=== PATIENT | female | born 1935 | race Caucasian/White ===

== ENCOUNTER 2020-07-23 10:41 | Inpatient (IN) | payer MEDICARE, SELFPAY ==
[2020-07-23] VITALS (33 sets, daily range): BP systolic 80–140; BP diastolic 43–66; PULSE 52–65; RESP 16–29; TEMP 36.4–36.9; O2SAT 91–100
--- NOTE | ~2020-07-23 | CT_ITS ---
EXAMINATION: CT abdomen pelvis w con DATE: 07/23/2020 13:26 INDICATION: Epigastric abdominal pain. Nausea and vomiting. TECHNIQUE: Computed tomography (CT) of the abdomen and pelvis was performed with 100 mL Omnipaque 350 intravenous contrast. Automated exposure control and iterative reconstruction technique were employe d. The dose-length product was 546.05 mGy-cm. COMPARISON: None. FINDINGS: The visualized portions of the lung bases demonstrate mild atelectasis and mild chronic jeramie g disease. There is mild bronchiectasis in the lower lobes and lingula. There are trace pleural effus ions. Cardiomegaly is noted. No pericardial effusion. Calcifications in the liver and spleen are cons istent with old granulomatous disease. The gallbladder, pancreas, adrenal glands, and kidneys are nor mal. There is diverticulosis of the colon without evidence of diverticulitis. There are no dilated lo ops of bowel. There are changes of appendectomy. There is an umbilical hernia containing fat. There i s a gastrostomy tube in expected position. There are no pathologically enlarged lymph nodes. There is no free intraperitoneal fluid. There is a chronic burst fracture of L5. There is severe lumbar and t horacic spondylosis. IMPRESSION: 1. Umbilical hernia containing fat. Reviewed, dictated and finalized at location A.
--- NOTE | ~2020-07-23 | XR_ITS ---
EXAMINATION: XR chest 2V DATE: 07/23/2020 11:44 INDICATION: Aspiration. Cough. TECHNIQUE: Frontal and lateral views of the chest were obtained. COMPARISON: None. FINDINGS: There is mild atelectasis in left lower lung zone. No pleural effusion or pneumothorax. The heart size is normal. IMPRESSION: 1. Mild atelectasis in left lower lung zone. Reviewed, dictated and finalized at location A.
--- NOTE | 2020-07-23 10:50 | ECG_ITS ---
Measurements Intervals [place] Rate: 53 P: 52 NH: 157 QRS: -7 QRSD: 85 T: 40 QT: 430 QTc: 406 Interpretive Statements SINUS BRADYCARDIA BASELINE ARTIFACT- I, AVL, V5 BORDERLINE ECG Electronically Signed On 07-24-2020 11:41:01 CDT by Pete Cardona D.O.
[2020-07-23 11:05] LABS: Basophils Absolute Auto 0.1 K/mm3 (0.0-0.1); Basophils Percent Auto 0.2 % (0.2-1.2); Eosinophils Absolute Auto 0.3 K/mm3 (0-0.3); Eosinophils Percent Auto 1.3 % (0-4.4); Hemoglobin 11.2 g/dL (12.0-15.0); Immature Granulocyte Absolute 0.14 K/mm3 (0.00-0.031); Immature Granulocyte Percent A 0.7 % (0-0.5); Lymphocytes Absolute Auto 0.85 K/mm3 (0.9-3.2); Lymphocytes Percent Auto 4.1 % (18.3-44.2); Mean Corpuscular HGB Conc 32.9 g/dl (32-36); Mean Corpuscular Hemoglobin 30.9 pg (26-34); Mean Corpuscular Volume 93.9 fl (80-100); Mean Platelet Volume 9.2 fl (7.4-10.4); Neutrophils Absolute Auto 18.5 K/mm3 (1.3-6.7); Neutrophils Percent Auto 88.7 % (45.5-73.1); Platelet Count Result 524 k/mm3 (150-375); Red Blood Count 3.62 M/mm3 (4.2-5.4); Red Cell Distribution Width 13.8 % (11.5-14.5); White Blood Count 20.8 K/mm3 (4.5-10.0)
[2020-07-23 11:13] LABS: Ovalocytes 1+ (NORMAL); Platelet Estimate Adequate (Adequate)
--- NOTE | 2020-07-23 11:40 | PC.NURSE ---
PT TO RADIOLOGY AT THIS TIME, WILL OBTAIN URINE UPON HER RETURN.
[2020-07-23 12:16] LABS: Add Urine Microscopic? YES; Amorphous Sediment Urine Few; Appearance Urine Clear (Clear); Bacteria Urine Trace /hpf; Bilirubin Urine Negative (Negative); Blood Urine Negative (Negative); Color Urine Yellow (Yellow); Glucose Urine UA Negative (Negative); Ketones Urine Negative (Negative); Leukocyte Esterase Ur Negative LEU/UL (Negative); Mucus Urine Few /lpf; Nitrate Urine Negative (Negative); Protein Urine Negative (Negative); RBC Urine 0-2 /hpf (0-2); Specific Grav Ur 1.015 (1.001-1.035); Squamous Epithelial Cell Urine Rare /hpf (Few); WBC Urine 0-3 /hpf
[2020-07-23 12:23] LABS: Alanine Aminotransferase 20 U/L (4-35); Albumin Level 3.2 g/dL (3.5-5.1); Alkaline Phosphatase 63 U/L (38-126); Anion Gap 5 mmol/L (8-16); Aspartate Amino Transferase 27 U/L (14-36); Bilirubin,Total 0.5 mg/dL (0.2-1.3); Blood Urea Nitrogen 23 mg/dL (7-17); Calcium 9.1 mg/dL (8.4-10.2); Carbon Dioxide 33 mmol/L (22-30); Chloride 93 mmol/L (98-107); Estimated CRCL calculation 54 ml/min; Estimated Glomerular Filt Rate > 60; Glucose 142 mg/dL (65-105); Lipase 175 U/L (23-300); Potassium 4.4 mmol/L (3.4-5.0); Sodium 131 mmol/L (137-145)
--- NOTE | 2020-07-23 14:03 | ED.GENADULT ---
HPI - General Adult General Chief complaint: Nausea/Vomiting/Diarrhea Stated complaint: vomiting Time Seen by Provider: 07/23/20 10:59 History of Present Illness HPI narrative: Patient is an 85-year-old female with history of dementia who presents ER with concerns for nausea/vomiting as well as possible aspiration. Patient has a G-tube and has been vomiting yellowish fluid. They report she has new oxygen requirement which is abnormal for her. History otherwise limited. At baseline patient is alert and oriented x1. Related Data Home Medications Medication Instructions Recorded Confirmed acetaminophen 325 mg FEEDING TUBE Q4-5H PRN 07/23/20 07/23/20 albuterol sulfate 2 puff INHALATION Q4-5H PRN 07/23/20 07/23/20 alprazolam 0.25 mg PO HS PRN 07/23/20 07/23/20 amlodipine 10 mg FEEDING TUBE DAILY 07/23/20 07/23/20 apixaban 5 mg FEEDING TUBE BID 07/23/20 07/23/20 atorvastatin 10 mg FEEDING TUBE DAILY 07/23/20 07/23/20 bisacodyl 10 mg IN DAILY PRN 07/23/20 07/23/20 carvedilol 25 mg FEEDING TUBE BID 07/23/20 07/23/20 cholecalciferol (vitamin D3) 10 mcg FEEDING TUBE DAILY 07/23/20 07/23/20 [Vitamin D3] lamotrigine 200 mg FEEDING TUBE BID 07/23/20 07/23/20 lansoprazole 30 mg PO DAILY 07/23/20 07/23/20 mirtazapine 15 mg PO HS 07/23/20 07/23/20 polyethylene glycol 1 ea MISCELLANEOUS PRN 07/23/20 07/23/20 Allergies Allergy/AdvReac Type Severity Reaction Status Date / Time No Known Allergies Allergy Verified 07/23/20 11:11 Review of Systems Review of Systems: ROS unobtainable: Yes unobtainable due to medical condition PMFSH Past Medical History Medical History (Updated 07/23/20 @ 21:42 by Neil Hahn MD) Anxiety Brain aneurysm CVA (cerebral vascular accident) Dementia Depression Hyperlipidemia Hypertension Subarachnoid bleed Surgical History Surgical History Gastrostomy tube in place Family History Family History Father Diabetes mellitus Social History Social History (Updated 07/23/20 @ 21:11 by Nyla Sarmiento NP) Social History: Resides at [facility]. The patient is listed as a DNR. Her son is listed as a durable power prototype special build for healthcare. The patient is being listed as . She is retired. Only her son day but is listed is listed as contact. Years smoked: 60 Smoking status: Former smoker Tobacco type: cigarettes Alcohol intake: never Substance use: never Living arrangements: residential Gender identity (if verbalized by the patient): Female Spiritual care concerns: No Exam Narrative: Exam Narrative: GENERAL: Chronically ill-appearing, well-nourished, and in no acute distress. HEAD: Normocephalic, atraumatic. NECK: Supple. CHEST: Basilar Rales that are faint. No respiratory distress. HEART: Regular rate and rhythm. Normal peripheral pulses. ABDOMEN: Soft, nontender, nondistended. EXTREMITIES: Normal range of motion. No edema. SKIN: Warm, dry, no rash. NEURO: Patient is very fatigued and awakens with minor noxious stimuli. She is not alert or oriented. PSYCH: Normal mood and affect. Course Course Emergency Course: Accepted to hospitalist service. Patient son informed of results. He reports that patient requires Reglan to help with gastric emptying and is concerned that she will not get it. Treatment was on the medication list that was sent by the residential. Vital Signs Vital signs: Vital Signs Pulse Rate 59 L 07/23/20 10:46 Respiratory Rate 16 07/23/20 10:46 Pulse Oximetry 100 07/23/20 10:46 Temperature 97.5 F L 07/23/20 16:15 Pulse Rate 61 07/23/20 16:15 Respiratory Rate 18 07/23/20 16:15 Blood Pressure 140/43 L 07/23/20 16:15 Pulse Oximetry 100 07/23/20 16:15 Medical Decision Making Vital Signs Vital Signs: Vital Signs Pulse Rate 59 L 07/23/20 10:46 Respiratory Rate 16 07/23/20
--- NOTE | 2020-07-23 16:05 | ADMGEN ---
This patient, Judy Geronimo, was admitted to [facility] Surg Room 332-01. Patient/family oriented to hospital policies and general routines including ID bracelet, bed and alarms, visiting hours, pain management, procedures, bathroom and other care routines, personal items, smoking policy, room service/diet, and visiting hours. Information on how to activate the Rapid Response Team has been discussed. Patient/Family are encouraged to report perceived risks to care and to ask questions if they do not understand what they are told or what they should do.
[2020-07-23 17:57] LABS: Lactic Acid Reflex 0.9 mmol/L (0.7-2.1)
[2020-07-23 20:51] LABS: SARS-CoV-2 RNA PCR Negative
--- NOTE | 2020-07-23 20:52 | PM.IMHP ---
H&P: HPI History of Present Illness Date/Time: 07/23/20 20:52 Chief complaint: aspiration pneumonia,hypoxia,ams Narrative: Judy Geronimo is a 85 year old female Who comes [facility]. Care center at [facility]. She has had a past history of having a hemorrhagic subarachnoid bleed in the past. And a brain aneurysm. She is currently on tube feedings. And she has a history of dementia. She came to the emergency room today for concerns of nausea vomiting. With possible aspiration. She does have a G-tube and has been vomiting yellowish fluid. Patient is now requiring oxygen and she is not on any home oxygen. She is only orientated x1. However when I went to interview she was not answering any questions. It looks like the son is a durable power immigration attorney for healthcare. Patient is typically NPO at the alf. She is listed as a DNR at the alf. Patient's CT of the abdomen was read as umbilical hernia containing fat. Chest x-ray was read as mild atelectasis in the left lower lung zone. Patient was started on Zosyn For possible aspiration. Patient was admitted and patient on a medical floor. She was checked for covid 19. It is placed on isolation. Date of service is 07/23/2020 Review of Systems Review of Systems: All systems reviewed & are unremarkable except as noted in HPI and below Constitutional: Constitutional: Reports as per HPI and Reports no additional constitutional complaints Eyes: Eyes: Reports as per HPI and Reports no additional eye complaints ENT: Reports system reviewed and no additional complaints, except as documented and Reports Normal hearing present Cardiovascular: Cardiovascular: Reports no additional cardiovascular complaints Respiratory: Respiratory: Reports no additional respiratory complaints and Reports no additional respiratory complaints Gastrointestinal: Gastrointestinal: Reports as per HPI and Reports no additional gastrointestinal complaints Musculoskeletal: Musculoskeletal: Reports no additional musculoskeletal complaints Integumentary/Breasts: Skin/Breast: Reports system reviewed and no additional complaints, except as docu and Reports as per HPI Neurologic: Reports system reviewed and no additional complaints, except as documented, Reports as per HPI and Reports Normal hearing present Psychiatric: Psychiatric: Reports no additional psychiatric complaints and Reports as per HPI Endocrine: Endocrine: Reports no additional endocrine complaints Hematologic/Lymphatic: Hematologic/Lymphatic: Reports no additional hematologic/lymphatic complaints Allergic/Immunologic: Allergic/Immunologic: Reports no additional allergic/immunologic complaints [facility] Past Medical History Medical History (Updated 07/23/20 @ 21:09 by Nyla Sarmiento NP) Anxiety Brain aneurysm CVA (cerebral vascular accident) Dementia Depression Hyperlipidemia Hypertension Subarachnoid bleed Surgical History Surgical History Gastrostomy tube in place Family History Family History Father Diabetes mellitus Social History Social History (Updated 07/23/20 @ 21:11 by Nyla Sarmiento NP) Social History: Resides at [facility]. The patient is listed as a DNR. Her son is listed as a durable power immigration attorney for healthcare. The patient is being listed as . She is retired. Only her son day but is listed is listed as contact. Years smoked: 60 Smoking status: Former smoker Tobacco type: cigarettes Alcohol intake: never Substance use: never Living arrangements: alf Gender identity (if verbalized by the patient): Female Spiritual care concerns: No Meds Home Medications and Allergies Home Medications Medication Instructions Recorded Confirmed Type acetaminophen 325 mg FEEDING TUBE Q4-5H PRN 07/23/20 07/23/20 Histor
[2020-07-23] MEDS: SODIUM CHLORIDE 0.9% IV 1,000 ML 100 ML IV CONT (22:29)
[2020-07-23] MEDS: PANTOPRAZOLE SODIUM IV 40 MG VIAL IV PUSH (22:29)
[2020-07-24] VITALS (9 sets, daily range): BP systolic 123–134; BP diastolic 43–60; PULSE 59–85; RESP 16–20; TEMP 36.3–36.8; O2SAT 93–98; BMI 25.0
[2020-07-24 08:20] LABS: Hematocrit 26.7 % (37.0-47.0); Hemoglobin 8.6 g/dL (12.0-15.0); Mean Corpuscular HGB Conc 32.2 g/dl (32-36); Mean Corpuscular Volume 96.4 fl (80-100); Platelet Count Result 409 k/mm3 (150-375); Red Blood Count 2.77 M/mm3 (4.2-5.4); Red Cell Distribution Width 13.7 % (11.5-14.5)
[2020-07-24] MEDS: SODIUM CHLORIDE 0.9% IV 1,000 ML 100 ML IV CONT (08:28)
[2020-07-24] MEDS: DEXAMETHASONE SOD PHOS INJ 4 MG/ML VIAL 6 MG IV PUSH (08:30)
[2020-07-24] MEDS: ENOXAPARIN 40 MG/0.4 ML SYRINGE SUB-Q (08:32)
[2020-07-24] MEDS: PANTOPRAZOLE SODIUM IV 40 MG VIAL IV PUSH ×2 (08:32→20:09)
[2020-07-24 08:36] LABS: Alanine Aminotransferase 18 U/L (4-35); Albumin Level 2.8 g/dL (3.5-5.1); Alkaline Phosphatase 55 U/L (38-126); Anion Gap 4 mmol/L (8-16); Aspartate Amino Transferase 32 U/L (14-36); Bilirubin,Total 0.5 mg/dL (0.2-1.3); Blood Urea Nitrogen 17 mg/dL (7-17); Calcium 8.4 mg/dL (8.4-10.2); Carbon Dioxide 31 mmol/L (22-30); Chloride 99 mmol/L (98-107); Estimated CRCL calculation 54 ml/min; Estimated Glomerular Filt Rate > 60; Glucose 100 mg/dL (65-105); Potassium 3.9 mmol/L (3.4-5.0); Sodium 134 mmol/L (137-145)
--- NOTE | 2020-07-24 14:17 | PM.IMPN ---
Progress Note: A&P Assessment and Plan (1) Aspiration pneumonia: Code(s): J69.0 - Pneumonitis due to inhalation of food and vomit Status: Acute Assessment and Plan: Concern for aspiration noted by [facility] staff. Patient had vomited and then became hypoxic, requiring oxygen. She has not had any episodes of hypoxia documented here. CXR showed mild atelectasis of lower lung zones. She has been afebrile. At presentation, WBC was elevated at 20.8 and has improved to 11.0. Lungs are CTA. She is maintaining adequate oxygen saturations on 2L O2. She is on tube feedings due to neurogenic dysphagia but she was still taking some sips and bites by mouth at [facility]. Continue IV Zosyn (started 07/23) Blood cultures are pending. Aspiration precautions in place. IV fluids discontinued. Resume tube feedings. NPO. Supplemental O2 as needed to achieve O2 sat >92% (2) Nausea and vomiting: Code(s): R11.2 - Nausea with vomiting, unspecified Status: Acute Assessment and Plan: Patient had episode of N/V at [facility]. CT a/p with no acute process. She has not had any episodes of N/V today. Antiemetics as needed Resume PPI Resume tube feedings IV fluids discontinued. Monitor closely for symptoms (3) Hypertension: Code(s): I10 - Essential (primary) hypertension Status: Chronic Assessment and Plan: Blood pressure is stable at 128/60. Will resume home dose amlodipine (4) Hyperlipidemia: Code(s): E78.5 - Hyperlipidemia, unspecified Status: Chronic Assessment and Plan: Continue atorvastatin per G-tube (5) Subarachnoid hemorrhage: Code(s): I60.9 - Nontraumatic subarachnoid hemorrhage, unspecified Status: Acute Assessment and Plan: Patient had SAH on 06/19/2020. She was hospitalized at [facility] from 06/19/20-07/17/2020. Records were reviewed. Closely monitor (6) DVT (deep venous thrombosis): Code(s): I82.409 - Acute embolism and thrombosis of unspecified deep veins of unspecified lower extremity Status: Acute Assessment and Plan: Patient has history of DVT and is currently being managed on eliquis. Despite her recent SAH, this medication was continued upon discharge from [facility]. Duration of therapy is not indicated in records, however son states that it was to be continued for 2 weeks which would make stop date 07/31/2020. Continue eliquis per feeding tube (7) Anxiety: Code(s): F41.9 - Anxiety disorder, unspecified Status: Chronic Assessment and Plan: Mood is stable at this time. Continue prn ativan per feeding tube. (8) COVID-19 ruled out by laboratory testing: Code(s): Z03.818 - Encounter for observation for suspected exposure to other biological agents ruled out Status: Acute Assessment and Plan: Tested negative for COVID-19 on 07/23/2020. IV Dexamethasone discontinued 07/24 (patient received 1 dose). Isolation precautions discontinued. Subjective Date/time seen: 07/24/20 14:17 Interval history: Date of service: 07/24/2020 Judy Geronimo is an 85 year old female with a history of CVA, dementia, HLD, HTN, anxiety, and recent subarachnoid hemorrhage who is seen in follow up for probable aspiration pneumonia. She is resting comfortably and awakens to her name. She is pleasantly confused and is not able to contribute to her history. She states I don't feel well but cannot elaborate on symptoms. No further information is obtainable. Review of Systems Review of Systems: ROS unobtainable: Yes unobtainable due to mental status Exam Narrative: Exam Narrative: Ms. Geronimo is a thin, chronically ill appearing 85-year-old female who is lying supine in bed. She appears comfortable and is in NARD. Neuro: asleep, awakens to verbal stimuli, oriented x2 (able to state name and year), speech garbled, able to follow some commands, bulb assembler strength 4/5 on righ
[2020-07-24] MEDS: APIXABAN 5 MG TABLET FEED TUBE (18:30)
[2020-07-24] MEDS: lamoTRIgine 100 MG TABLET 200 MG FEED TUBE (20:09)
[2020-07-24] MEDS: carvediloL 25 MG TABLET FEED TUBE (20:09)
[2020-07-25 05:59] VITALS: BP 149/56; PULSE 61; RESP 18; TEMP 36.2; O2SAT 94
[2020-07-25 06:01] LABS: Hematocrit 28.7 % (37.0-47.0); Hemoglobin 9.3 g/dL (12.0-15.0); Mean Corpuscular HGB Conc 32.4 g/dl (32-36); Mean Corpuscular Volume 95.7 fl (80-100); Mean Platelet Volume 9.2 fl (7.4-10.4); Platelet Count Result 456 k/mm3 (150-375); Red Cell Distribution Width 13.4 % (11.5-14.5); White Blood Count 10.1 K/mm3 (4.5-10.0)
[2020-07-25 06:14] LABS: Anion Gap 6 mmol/L (8-16); Blood Urea Nitrogen 19 mg/dL (7-17); Carbon Dioxide 26 mmol/L (22-30); Chloride 103 mmol/L (98-107); Estimated CRCL calculation 64 ml/min; Estimated Glomerular Filt Rate > 60; Glucose 115 mg/dL (65-105); Potassium 3.7 mmol/L (3.4-5.0); Sodium 135 mmol/L (137-145)
[2020-07-25] MEDS: amLODIPine BESYLATE 5 MG TABLET 10 MG FEED TUBE (09:02)
[2020-07-25] MEDS: PANTOPRAZOLE SODIUM IV 40 MG VIAL IV PUSH ×2 (09:02→20:26)
[2020-07-25] MEDS: APIXABAN 5 MG TABLET FEED TUBE ×2 (09:02→18:36)
[2020-07-25] MEDS: ATORVASTATIN 10 MG TABLET FEED TUBE (09:03)
[2020-07-25] MEDS: carvediloL 25 MG TABLET FEED TUBE ×2 (09:03→20:25)
[2020-07-25] MEDS: lamoTRIgine 100 MG TABLET 200 MG FEED TUBE ×2 (09:03→20:26)
--- NOTE | 2020-07-25 11:54 | PM.IMPN ---
Progress Note: A&P Assessment and Plan (1) Aspiration pneumonia: Code(s): J69.0 - Pneumonitis due to inhalation of food and vomit Status: Acute Assessment and Plan: Concern for aspiration noted by [facility] staff. Patient had vomited and then became hypoxic, requiring oxygen. She has not had any episodes of hypoxia documented here. CXR showed mild atelectasis of lower lung zones. She has been afebrile. At presentation, WBC was elevated at 20.8 and has improved to 10.1. Lungs are CTA. She has been weaned to room air and is maintaining adequate oxygen saturations. She is on tube feedings due to neurogenic dysphagia but she was still taking some sips and bites by mouth at [place]. Continue IV Zosyn (started 07/23) Blood cultures are pending. Aspiration precautions in place. IV fluids discontinued 07/24. Tube feedings resumed 07/24. NPO. Supplemental O2 as needed to achieve O2 sat >92% Hopeful discharge tomorrow if continued improvement. (2) Nausea and vomiting: Code(s): R11.2 - Nausea with vomiting, unspecified Status: Acute Assessment and Plan: Patient had episode of N/V at [facility]. CT a/p with no acute process. She has not had any episodes of N/V today. Antiemetics as needed PPI resumed Resume tube feedings IV fluids discontinued. Monitor closely for symptoms (3) Hypertension: Code(s): I10 - Essential (primary) hypertension Status: Chronic Assessment and Plan: Blood pressure is stable at 149/56. Continue amlodipine (4) Hyperlipidemia: Code(s): E78.5 - Hyperlipidemia, unspecified Status: Chronic Assessment and Plan: Continue atorvastatin per G-tube (5) Subarachnoid hemorrhage: Code(s): I60.9 - Nontraumatic subarachnoid hemorrhage, unspecified Status: Acute Assessment and Plan: Patient had SAH on 06/19/2020. She was hospitalized at [facility] from 06/19/20-07/17/2020. Records were reviewed. Closely monitor (6) DVT (deep venous thrombosis): Code(s): I82.409 - Acute embolism and thrombosis of unspecified deep veins of unspecified lower extremity Status: Acute Assessment and Plan: Patient has history of DVT and is currently being managed on eliquis. Despite her recent SAH, this medication was continued upon discharge from [facility]. Duration of therapy is not indicated in records, however son states that it was to be continued for 2 weeks which would make stop date 07/31/2020. Continue eliquis per feeding tube (7) Anxiety: Code(s): F41.9 - Anxiety disorder, unspecified Status: Chronic Assessment and Plan: Mood is stable at this time. Continue prn ativan per feeding tube. (8) COVID-19 ruled out by laboratory testing: Code(s): Z03.818 - Encounter for observation for suspected exposure to other biological agents ruled out Status: Acute Assessment and Plan: Tested negative for COVID-19 on 07/23/2020. IV Dexamethasone discontinued 07/24 (patient received 1 dose). Isolation precautions discontinued. Subjective Date/time seen: 07/25/20 11:54 Interval history: Date of service: 07/25/2020 Judy Geronimo is an 85 year old female with a history of CVA, dementia, HLD, HTN, anxiety, and recent subarachnoid hemorrhage who is seen in follow up for aspiration pneumonia. She is resting comfortably in bed and is pleasantly confused. She believes she is at a doctor's office to get her teeth pulled. She denies difficulty breathing or pain. She does not answer any additional questions. Nursing staff reports she was upset and worked up last night and did not sleep well. Review of Systems Review of Systems: ROS unobtainable: Yes unobtainable due to mental status Exam Narrative: Exam Narrative: Ms. Geronimo is a thin, chronically ill appearing 85-year-old female who is lying supine in bed. She appears comfortable and is in NARD. HR 61, BP 149/56
[2020-07-25 14:00] VITALS: BP 121/74; PULSE 59; RESP 16; TEMP 36.1; O2SAT 96
[2020-07-25 20:25] VITALS: PULSE 60
[2020-07-25 20:28] VITALS: O2SAT 92
[2020-07-25 22:00] VITALS: BP 110/60; PULSE 55; RESP 20; TEMP 36.8; O2SAT 97
[2020-07-26 06:00] VITALS: BP 121/73; PULSE 64; RESP 18; TEMP 36.9; O2SAT 94
[2020-07-26] MEDS: PANTOPRAZOLE SODIUM IV 40 MG VIAL IV PUSH ×2 (08:08→20:03)
[2020-07-26] MEDS: lamoTRIgine 100 MG TABLET 200 MG FEED TUBE ×2 (08:08→20:03)
[2020-07-26] MEDS: amLODIPine BESYLATE 5 MG TABLET 10 MG FEED TUBE (08:08)
[2020-07-26] MEDS: APIXABAN 5 MG TABLET FEED TUBE ×2 (08:09→16:28)
[2020-07-26] MEDS: ATORVASTATIN 10 MG TABLET FEED TUBE (08:09)
[2020-07-26 08:10] VITALS: PULSE 64
[2020-07-26] MEDS: carvediloL 25 MG TABLET FEED TUBE ×2 (08:10→20:02)
--- NOTE | 2020-07-26 12:42 | P.PNIM_ITS ---
Progress Note: A&P Assessment and Plan (1) Aspiration pneumonia: Code(s): J69.0 - Pneumonitis due to inhalation of food and vomit Status: Acute Assessment and Plan: Concern for aspiration noted by [facility] staff. Patient had vomited and then became hypoxic, requiring oxygen. She has not had any episodes of hypoxia documented here. CXR showed mild atelectasis of lower lung zones. She has been afebrile. At presentation, WBC was elevated at 20.8 and has improved to 10.1. Lungs are CTA. She has been weaned to room air and is maintaining adequate oxygen saturations. She is on tube feedings due to neurogenic dysphagia but she was still taking some sips and bites by mouth at [facility]. * Continue IV Zosyn (started 07/23). * Preliminary BCx with NGTD. Monitor final cultures * Aspiration precautions in place. * IV fluids discontinued 07/24. * Tube feedings resumed 07/24. NPO. * Supplemental O2 as needed to achieve O2 sat >92% * Hopeful discharge tomorrow if continued improvement. Will plan to transition to PO antibiotics upon discharge to complete a 7 day course. (2) Nausea and vomiting: Code(s): R11.2 - Nausea with vomiting, unspecified Status: Acute Assessment and Plan: Patient had episode of N/V at [place]. CT a/p with no acute process. She has not had any further episodes of N/V since admission. * Antiemetics as needed * PPI resumed * Tube feedings resumed * IV fluids discontinued. * Monitor closely for symptoms (3) Hypertension: Code(s): I10 - Essential (primary) hypertension Status: Chronic Assessment and Plan: Blood pressure is stable at 121/73. * Continue amlodipine (4) Hyperlipidemia: Code(s): E78.5 - Hyperlipidemia, unspecified Status: Chronic Assessment and Plan: * Continue atorvastatin per G-tube (5) Subarachnoid hemorrhage: Code(s): I60.9 - Nontraumatic subarachnoid hemorrhage, unspecified Status: Acute Assessment and Plan: Patient had SAH on 06/19/2020. She was hospitalized at [facility] from 06/19/20-07/17/2020. Records were reviewed. * Closely monitor (6) DVT (deep venous thrombosis): Code(s): I82.409 - Acute embolism and thrombosis of unspecified deep veins of unspecified lower extremity Status: Acute Assessment and Plan: Patient has history of DVT and is currently being managed on eliquis. Despite her recent SAH, this medication was continued upon discharge from [facility]. Duration of therapy is not indicated in records, however son states that it was to be continued for 2 weeks which would make stop date 07/31/2020. * Continue eliquis per feeding tube (7) Anxiety: Code(s): F41.9 - Anxiety disorder, unspecified Status: Chronic Assessment and Plan: Mood is stable at this time. * Continue prn ativan per feeding tube. (8) COVID-19 ruled out by laboratory testing: Code(s): Z03.818 - Encounter for observation for suspected exposure to other biological agents ruled out Status: Acute Assessment and Plan: Tested negative for COVID-19 on 07/23/2020. IV Dexamethasone discontinued 07/24 (patient received 1 dose). Isolation precautions discontinued. Additional Plan Continue PT/OT. Care coordination is following as patient's son does not wish fo r her to return to [place]. Seeking other SNF accepting facilities and awaiting insurance authorization. Subjective Date/time seen: 07/26/20 12:42 Interval history: Date o
--- NOTE | 2020-07-26 12:42 | PM.IMPN ---
Progress Note: A&P Assessment and Plan (1) Aspiration pneumonia: Code(s): J69.0 - Pneumonitis due to inhalation of food and vomit Status: Acute Assessment and Plan: Concern for aspiration noted by [facility] staff. Patient had vomited and then became hypoxic, requiring oxygen. She has not had any episodes of hypoxia documented here. CXR showed mild atelectasis of lower lung zones. She has been afebrile. At presentation, WBC was elevated at 20.8 and has improved to 10.1. Lungs are CTA. She has been weaned to room air and is maintaining adequate oxygen saturations. She is on tube feedings due to neurogenic dysphagia but she was still taking some sips and bites by mouth at [facility]. Continue IV Zosyn (started 07/23). Preliminary BCx with NGTD. Monitor final cultures Aspiration precautions in place. IV fluids discontinued 07/24. Tube feedings resumed 07/24. NPO. Supplemental O2 as needed to achieve O2 sat >92% Hopeful discharge tomorrow if continued improvement. Will plan to transition to PO antibiotics upon discharge to complete a 7 day course. (2) Nausea and vomiting: Code(s): R11.2 - Nausea with vomiting, unspecified Status: Acute Assessment and Plan: Patient had episode of N/V at [facility]. CT a/p with no acute process. She has not had any further episodes of N/V since admission. Antiemetics as needed PPI resumed Tube feedings resumed IV fluids discontinued. Monitor closely for symptoms (3) Hypertension: Code(s): I10 - Essential (primary) hypertension Status: Chronic Assessment and Plan: Blood pressure is stable at 121/73. Continue amlodipine (4) Hyperlipidemia: Code(s): E78.5 - Hyperlipidemia, unspecified Status: Chronic Assessment and Plan: Continue atorvastatin per G-tube (5) Subarachnoid hemorrhage: Code(s): I60.9 - Nontraumatic subarachnoid hemorrhage, unspecified Status: Acute Assessment and Plan: Patient had SAH on 06/19/2020. She was hospitalized at [facility] from 06/19/20-07/17/2020. Records were reviewed. Closely monitor (6) DVT (deep venous thrombosis): Code(s): I82.409 - Acute embolism and thrombosis of unspecified deep veins of unspecified lower extremity Status: Acute Assessment and Plan: Patient has history of DVT and is currently being managed on eliquis. Despite her recent SAH, this medication was continued upon discharge from [facility]. Duration of therapy is not indicated in records, however son states that it was to be continued for 2 weeks which would make stop date 07/31/2020. Continue eliquis per feeding tube (7) Anxiety: Code(s): F41.9 - Anxiety disorder, unspecified Status: Chronic Assessment and Plan: Mood is stable at this time. Continue prn ativan per feeding tube. (8) COVID-19 ruled out by laboratory testing: Code(s): Z03.818 - Encounter for observation for suspected exposure to other biological agents ruled out Status: Acute Assessment and Plan: Tested negative for COVID-19 on 07/23/2020. IV Dexamethasone discontinued 07/24 (patient received 1 dose). Isolation precautions discontinued. Additional Plan Continue PT/OT. Care coordination is following as patient's son does not wish for her to return to [place]. Seeking other [facility] accepting facilities and awaiting insurance authorization. Subjective Date/time seen: 07/26/20 12:42 Interval history: Date of service: 07/26/2020 Judy Geronimo is an 85 year old female with a history of CVA, dementia, HLD, HTN, anxiety, and recent subarachnoid hemorrhage who is seen in follow up for aspiration pneumonia. She is laying in bed and sleeping. She awakes to her name. She is able to tell me her name but is not able to provide any further information. She had a bowel movement this morning. She has been eating fairly well today. She does not appear to have a cough.
[2020-07-26 14:00] VITALS: BP 121/41; PULSE 54; RESP 16; TEMP 36.9; O2SAT 95
[2020-07-26] MEDS: LORazepam INJ (*CRX) 2 MG/ML VIAL 0.5 MG IV PUSH (19:56)
[2020-07-26 20:02] VITALS: PULSE 66
[2020-07-26 22:00] VITALS: BP 136/44; PULSE 59; RESP 22; TEMP 36.4; O2SAT 96
[2020-07-27 05:58] LABS: Anion Gap 6 mmol/L (8-16); Blood Urea Nitrogen 16 mg/dL (7-17); Calcium 8.9 mg/dL (8.4-10.2); Carbon Dioxide 29 mmol/L (22-30); Chloride 103 mmol/L (98-107); Estimated CRCL calculation 54 ml/min; Estimated Glomerular Filt Rate > 60; Glucose 121 mg/dL (65-105); Potassium 3.2 mmol/L (3.4-5.0); Sodium 138 mmol/L (137-145)
[2020-07-27 06:00] VITALS: BP 152/49; PULSE 588; RESP 22; TEMP 36.6; O2SAT 95
[2020-07-27] MEDS: lamoTRIgine 100 MG TABLET 200 MG FEED TUBE ×2 (08:42→20:03)
[2020-07-27 08:43] VITALS: PULSE 56
[2020-07-27] MEDS: ATORVASTATIN 10 MG TABLET FEED TUBE (08:43)
[2020-07-27] MEDS: carvediloL 25 MG TABLET FEED TUBE ×2 (08:43→20:02)
[2020-07-27] MEDS: amLODIPine BESYLATE 5 MG TABLET 10 MG FEED TUBE (08:43)
[2020-07-27] MEDS: APIXABAN 5 MG TABLET FEED TUBE ×2 (08:43→17:34)
[2020-07-27] MEDS: PANTOPRAZOLE SODIUM IV 40 MG VIAL IV PUSH ×2 (08:46→20:03)
[2020-07-27 11:25] VITALS: BMI 10.0
--- NOTE | 2020-07-27 12:37 | PCDIET ---
Nutrition Follow-Up Complete: Inadequate infusion of enteral nutrition related to nausea/vomiting as evidenced by NPO status/tube feedings on hold. Patient to meet estimated nutritional needs Goal:Goal met. Continue goal. Pt current nutrition is Vital 1.2 @ 40ml/hr over 22hrs with 30 ml water flush q 4 hrs Nutrition recommendation: Due to dementia, pt may benefit from hospice and comfort feedings vs enteral nutrition Last recorded weight is 68.2 kg (no new wt, recommend new wt) Bowel Motility: No BM Labs Reviewed:07/27 K 3.2, Cr .6, Glucose 121 Meds Noted: Albuterol, lipitor, dulcolax, zofran, ativan Additional Notes: Pt on EN of vital 1.2 at 40ml/hr over 22hrs providing 1056 kcals, 66g protein, adn 713ml of free water. An additional 180ml of free water provided via water flushes. Pt is tolerating feedings well, with 0 residuals. Currently NPO due to aspiration pneumonia. Due to dementia, pt would be more appropriate for comfort feedings vs EN at this stage. We will continue to monitor every t/f.
[2020-07-27 14:00] VITALS: BP 128/47; PULSE 56; RESP 22; TEMP 37; O2SAT 96
--- NOTE | 2020-07-27 16:13 | PM.IMPN ---
Progress Note: A&P Assessment and Plan (1) Aspiration pneumonia: Code(s): J69.0 - Pneumonitis due to inhalation of food and vomit Status: Acute Assessment and Plan: Concern for aspiration noted by [facility] staff. Patient had vomited and then became hypoxic, requiring oxygen. She has not had any episodes of hypoxia documented here. CXR showed mild atelectasis of lower lung zones. She has been afebrile. At presentation, WBC was elevated at 20.8 and has improved to 10.1. Lungs are CTA. She has been weaned to room air and is maintaining adequate oxygen saturations. She is on tube feedings due to neurogenic dysphagia but she was still taking some sips and bites by mouth at [facility]. Continue IV Zosyn (started 07/23). Preliminary BCx with NGTD. Monitor final cultures Aspiration precautions in place. IV fluids discontinued 07/24. Tube feedings resumed 07/24. NPO. Order placed for swallow study for ongoing diet recommendations Supplemental O2 as needed to achieve O2 sat >92% (2) Nausea and vomiting: Code(s): R11.2 - Nausea with vomiting, unspecified Status: Acute Assessment and Plan: Patient had episode of N/V at [facility]. CT a/p with no acute process. She has not had any further episodes of N/V since admission. Antiemetics as needed PPI resumed Tube feedings resumed IV fluids discontinued. Monitor closely for symptoms (3) Hypertension: Code(s): I10 - Essential (primary) hypertension Status: Chronic Assessment and Plan: Blood pressure is stable at 152/49 Continue amlodipine (4) Hyperlipidemia: Code(s): E78.5 - Hyperlipidemia, unspecified Status: Chronic Assessment and Plan: Continue atorvastatin per G-tube (5) Subarachnoid hemorrhage: Code(s): I60.9 - Nontraumatic subarachnoid hemorrhage, unspecified Status: Acute Assessment and Plan: Patient had SAH on 06/19/2020. She was hospitalized at [facility] from 06/19/20-07/17/2020. Records were reviewed. Closely monitor (6) DVT (deep venous thrombosis): Code(s): I82.409 - Acute embolism and thrombosis of unspecified deep veins of unspecified lower extremity Status: Acute Assessment and Plan: Patient has history of DVT and is currently being managed on eliquis. Despite her recent SAH, this medication was continued upon discharge from [facility]. Duration of therapy is not indicated in records, however son states that it was to be continued for 2 weeks which would make stop date 07/31/2020. Continue eliquis per feeding tube (7) Anxiety: Code(s): F41.9 - Anxiety disorder, unspecified Status: Chronic Assessment and Plan: Mood is stable at this time. Hold ativan given patient's significant daytime drowsiness. (8) COVID-19 ruled out by laboratory testing: Code(s): Z03.818 - Encounter for observation for suspected exposure to other biological agents ruled out Status: Acute Assessment and Plan: Tested negative for COVID-19 on 07/23/2020. IV Dexamethasone discontinued 07/24 (patient received 1 dose). Isolation precautions discontinued. Additional Plan Patient still awaiting insurance authorization for SNF placement at [facility] Subjective Date/time seen: 07/27/20 16:13 Interval history: Date of service: 07/27/2020 Judy Geronimo is an 85 year old female with a history of CVA, dementia, HLD, HTN, anxiety, and recent subarachnoid hemorrhage who is seen in follow up for aspiration pneumonia. She is resting comfortably in bed. She does not provide any further information. I had a long conversation with her son, Jorden, today who is disappointed by her slow progress. He is also disappointed that she has been NPO and states the G-tube was only temporary and the plan was to get her eating again. I discussed my concerns of risk of aspiration with him. Review of Systems Review of Systems: ELPIDIO ponce
[2020-07-27 18:01] LABS: SARS-CoV-2 RNA PCR Negative
[2020-07-27 20:02] VITALS: PULSE 67
[2020-07-27 22:00] VITALS: BP 150/88; PULSE 60; RESP 18; TEMP 37.3; O2SAT 99
[2020-07-28] MEDS: ACETAMINOPHEN 325 MG TABLET FEED TUBE (01:24)
[2020-07-28 05:11] LABS: Hematocrit 28.1 % (37.0-47.0); Hemoglobin 9.3 g/dL (12.0-15.0); Mean Corpuscular HGB Conc 33.1 g/dl (32-36); Mean Corpuscular Hemoglobin 30.4 pg (26-34); Mean Corpuscular Volume 91.8 fl (80-100); Platelet Count Result 424 k/mm3 (150-375); Red Blood Count 3.06 M/mm3 (4.2-5.4); Red Cell Distribution Width 14.1 % (11.5-14.5); White Blood Count 9.3 K/mm3 (4.5-10.0)
[2020-07-28 05:26] LABS: Anion Gap 5 mmol/L (8-16); Blood Urea Nitrogen 18 mg/dL (7-17); Calcium 8.7 mg/dL (8.4-10.2); Carbon Dioxide 27 mmol/L (22-30); Chloride 107 mmol/L (98-107); Estimated CRCL calculation 54 ml/min; Estimated Glomerular Filt Rate > 60; Glucose 109 mg/dL (65-105); Potassium 3.2 mmol/L (3.4-5.0); Sodium 139 mmol/L (137-145)
[2020-07-28 06:00] VITALS: BP 161/58; PULSE 67; RESP 18; TEMP 36.9; O2SAT 93
[2020-07-28] MEDS: POTASSIUM CHLORIDE 20 MEQ PACKET (FOR LIQUID) 40 MEQ FEED TUBE (08:25)
[2020-07-28] MEDS: lamoTRIgine 100 MG TABLET 200 MG FEED TUBE ×2 (08:25→20:37)
[2020-07-28] MEDS: PANTOPRAZOLE SODIUM IV 40 MG VIAL IV PUSH ×2 (08:25→20:37)
[2020-07-28] MEDS: APIXABAN 5 MG TABLET FEED TUBE ×2 (08:25→17:11)
[2020-07-28] MEDS: amLODIPine BESYLATE 5 MG TABLET 10 MG FEED TUBE (08:25)
[2020-07-28] MEDS: ATORVASTATIN 10 MG TABLET FEED TUBE (08:25)
[2020-07-28 08:26] VITALS: PULSE 60
[2020-07-28] MEDS: carvediloL 25 MG TABLET FEED TUBE ×2 (08:26→20:37)
--- NOTE | 2020-07-28 11:11 | PCSTNOTE ---
Bedside swallow study completed. Please see ST evaluation for further details and recommendations.
[2020-07-28 14:00] VITALS: BP 145/77; PULSE 58; RESP 20; TEMP 36.6; O2SAT 96
--- NOTE | 2020-07-28 14:08 | PM.IMPN ---
Progress Note: A&P Assessment and Plan (1) Aspiration pneumonia: Code(s): J69.0 - Pneumonitis due to inhalation of food and vomit Status: Acute Assessment and Plan: Concern for aspiration noted by [facility] staff. Patient had vomited and then became hypoxic, requiring oxygen. She has not had any episodes of hypoxia documented here. CXR showed mild atelectasis of lower lung zones. She has been afebrile. At presentation, WBC was elevated at 20.8 and has improved to 10.1. Lungs are CTA. She has been weaned to room air and is maintaining adequate oxygen saturations. She is on tube feedings due to neurogenic dysphagia but she was still taking some sips and bites by mouth at [facility]. Continue IV Zosyn (started 07/23). Will plan to complete 7 days of therapy. Preliminary BCx with NGTD. Monitor final cultures Aspiration precautions in place. IV fluids discontinued 07/24. Tube feedings resumed 07/24. Bedside swallow study today speech pathologist who recommended continuing NPO diet. They will continue with treatment. Patient's son (DELIA) did not wish to follow up with [facility]. Supplemental O2 as needed to achieve O2 sat >92% (2) Nausea and vomiting: Code(s): R11.2 - Nausea with vomiting, unspecified Status: Acute Assessment and Plan: Patient had episode of N/V at [facility]. CT a/p with no acute process. She has not had any further episodes of N/V since admission. Antiemetics as needed PPI resumed Tube feedings resumed IV fluids discontinued. Monitor closely for symptoms (3) Hypertension: Code(s): I10 - Essential (primary) hypertension Status: Chronic Assessment and Plan: Blood pressure is stable at 145/77 Continue amlodipine (4) Hyperlipidemia: Code(s): E78.5 - Hyperlipidemia, unspecified Status: Chronic Assessment and Plan: Continue atorvastatin per G-tube (5) Subarachnoid hemorrhage: Code(s): I60.9 - Nontraumatic subarachnoid hemorrhage, unspecified Status: Acute Assessment and Plan: Patient had SAH on 06/19/2020. She was hospitalized at [facility] from 06/19/20-07/17/2020. Records were reviewed. Closely monitor (6) DVT (deep venous thrombosis): Code(s): I82.409 - Acute embolism and thrombosis of unspecified deep veins of unspecified lower extremity Status: Acute Assessment and Plan: Patient has history of DVT and is currently being managed on eliquis. Despite her recent SAH, this medication was continued upon discharge from [facility]. Duration of therapy is not indicated in records, however son states that it was to be continued for 2 weeks which would make stop date 07/31/2020. Continue eliquis per feeding tube (7) Anxiety: Code(s): F41.9 - Anxiety disorder, unspecified Status: Chronic Assessment and Plan: Mood is stable at this time. Hold ativan given patient's significant daytime drowsiness. (8) COVID-19 ruled out by laboratory testing: Code(s): Z03.818 - Encounter for observation for suspected exposure to other biological agents ruled out Status: Acute Assessment and Plan: Tested negative for COVID-19 on 07/23/2020. IV Dexamethasone discontinued 07/24 (patient received 1 dose). Isolation precautions discontinued. (9) Hypokalemia: Code(s): E87.6 - Hypokalemia Status: Acute Assessment and Plan: Potassium mildly low at 3.2 today. Replace with 40 mEq KCl per feeding tube. Monitor potassium daily. Additional Plan Plan is to return to [facility] on 07/30/2020. Subjective Date/time seen: 07/28/20 14:08 Interval history: Date of service: 07/28/2020 Judy Geronimo is an 85 year old female with a history of CVA, dementia, HLD, HTN, anxiety, and recent subarachnoid hemorrhage who is seen in follow up for aspiration pneumonia. She is awake upon my encounter and is more conversational today. She w
[2020-07-28 20:37] VITALS: PULSE 68
[2020-07-28 22:00] VITALS: BP 140/56; PULSE 53; RESP 20; TEMP 36.7; O2SAT 94
--- NOTE | 2020-07-29 01:45 | PC.NURSE ---
Daylight Savings Time For Daylight Savings Time Ending in the Fall - Clocks are moved back. For Daylight Savings Time Beginning in the Spring - Clocks are moved ahead. For [facility], the time of change occurs at 0200 hrs. Time is taken from the process server. This entry on the patient's chart recognizes the change in time reflected during documentation. Example: 2 entries for vital signs may be charted for 0200 hrs.
[2020-07-29 06:00] VITALS: BP 151/48; PULSE 57; RESP 18; TEMP 36.9; O2SAT 94
[2020-07-29 06:47] LABS: Anion Gap 8 mmol/L (8-16); Blood Urea Nitrogen 15 mg/dL (7-17); Calcium 9.2 mg/dL (8.4-10.2); Carbon Dioxide 25 mmol/L (22-30); Chloride 105 mmol/L (98-107); Estimated CRCL calculation 64 ml/min; Estimated Glomerular Filt Rate > 60; Glucose 119 mg/dL (65-105); Magnesium 2.3 mg/dL (1.6-2.3); Potassium 3.8 mmol/L (3.4-5.0); Sodium 138 mmol/L (137-145)
[2020-07-29 08:18] VITALS: PULSE 58
[2020-07-29] MEDS: PANTOPRAZOLE SODIUM IV 40 MG VIAL IV PUSH ×2 (08:18→20:59)
[2020-07-29] MEDS: carvediloL 25 MG TABLET FEED TUBE ×2 (08:18→21:00)
[2020-07-29] MEDS: lamoTRIgine 100 MG TABLET 200 MG FEED TUBE ×2 (08:18→21:00)
[2020-07-29] MEDS: ATORVASTATIN 10 MG TABLET FEED TUBE (08:19)
[2020-07-29] MEDS: amLODIPine BESYLATE 5 MG TABLET 10 MG FEED TUBE (08:19)
[2020-07-29] MEDS: APIXABAN 5 MG TABLET FEED TUBE ×2 (08:19→17:28)
[2020-07-29 09:00] VITALS: PULSE 58; RESP 18; O2SAT 94
--- NOTE | 2020-07-29 11:58 | PM.IMPN ---
Progress Note: A&P Assessment and Plan (1) Aspiration pneumonia: Code(s): J69.0 - Pneumonitis due to inhalation of food and vomit Status: Acute Assessment and Plan: Concern for aspiration noted by [facility] staff. Patient had vomited and then became hypoxic, requiring oxygen. She has not had any episodes of hypoxia documented here. CXR showed mild atelectasis of lower lung zones. She has been afebrile. At presentation, WBC was elevated at 20.8 and has improved to 9.3. Lungs are CTA. She has been weaned to room air and is maintaining adequate oxygen saturations. She is on tube feedings due to neurogenic dysphagia but she was still taking some sips and bites by mouth at [facility]. She will complete 7 days of Zosyn today. Preliminary BCx with NGTD. Monitor final cultures Aspiration precautions in place. IV fluids discontinued 07/24. Tube feedings resumed 07/24. Bedside swallow study performed 07/28. Speech pathologist recommended continuing NPO diet. ST will continue with treatment. Patient's son (DELIA) did not wish to follow up with [facility]. Supplemental O2 as needed to achieve O2 sat >92% (2) Nausea and vomiting: Code(s): R11.2 - Nausea with vomiting, unspecified Status: Acute Assessment and Plan: Patient had episode of N/V at [facility]. CT a/p with no acute process. She has not had any further episodes of N/V since admission. Antiemetics as needed PPI resumed Tube feedings resumed IV fluids discontinued. Monitor closely for symptoms (3) Hypertension: Code(s): I10 - Essential (primary) hypertension Status: Chronic Assessment and Plan: Blood pressure is stable at 151/48 Continue amlodipine (4) Hyperlipidemia: Code(s): E78.5 - Hyperlipidemia, unspecified Status: Chronic Assessment and Plan: Continue atorvastatin per G-tube (5) Subarachnoid hemorrhage: Code(s): I60.9 - Nontraumatic subarachnoid hemorrhage, unspecified Status: Acute Assessment and Plan: Patient had SAH on 06/19/2020. She was hospitalized at [facility] from 06/19/20-07/17/2020. Records were reviewed. Closely monitor (6) DVT (deep venous thrombosis): Code(s): I82.409 - Acute embolism and thrombosis of unspecified deep veins of unspecified lower extremity Status: Acute Assessment and Plan: Patient has history of DVT and is currently being managed on eliquis. Despite her recent SAH, this medication was continued upon discharge from [facility]. Duration of therapy is not indicated in records, however son states that it was to be continued for 2 weeks which would make stop date 07/31/2020. Continue eliquis per feeding tube (7) Anxiety: Code(s): F41.9 - Anxiety disorder, unspecified Status: Chronic Assessment and Plan: Mood is stable at this time. Hold ativan to prevent further daytime drowsiness. (8) COVID-19 ruled out by laboratory testing: Code(s): Z03.818 - Encounter for observation for suspected exposure to other biological agents ruled out Status: Acute Assessment and Plan: Tested negative for COVID-19 on 07/23/2020. IV Dexamethasone discontinued 07/24 (patient received 1 dose). Isolation precautions discontinued. (9) Hypokalemia: Code(s): E87.6 - Hypokalemia Status: Acute Assessment and Plan: Potassium was mildly low and replaced. Now stable at 3.8 today Monitor potassium daily. Additional Plan Plan for discharge to [facility] tomorrow, 07/30/20. Subjective Date/time seen: 07/29/20 11:58 Interval history: Date of service: 07/28/2020 Judy Geronimo is an 85 year old female with a history of CVA, dementia, HLD, HTN, anxiety, and recent subarachnoid hemorrhage who is seen in follow up for aspiration pneumonia. She appears to be doing well today. She is awake and participates in conversation today. She tells me that she is watchin
[2020-07-29 14:00] VITALS: BP 148/50; PULSE 57; RESP 20; TEMP 36.3; O2SAT 98
[2020-07-29 21:00] VITALS: PULSE 72
[2020-07-29 22:00] VITALS: BP 147/50; PULSE 91; RESP 18; TEMP 36.8; O2SAT 97
[2020-07-30 06:00] VITALS: BP 125/78; PULSE 92; RESP 16; TEMP 37; O2SAT 94
[2020-07-30 07:22] LABS: Anion Gap 7 mmol/L (8-16); Blood Urea Nitrogen 15 mg/dL (7-17); Calcium 9.5 mg/dL (8.4-10.2); Carbon Dioxide 26 mmol/L (22-30); Chloride 105 mmol/L (98-107); Estimated CRCL calculation 78 ml/min; Estimated Glomerular Filt Rate > 60; Glucose 144 mg/dL (65-105); Potassium 3.4 mmol/L (3.4-5.0); Sodium 138 mmol/L (137-145)
[2020-07-30] MEDS: APIXABAN 5 MG TABLET FEED TUBE (08:34)
[2020-07-30] MEDS: ATORVASTATIN 10 MG TABLET FEED TUBE (08:34)
[2020-07-30] MEDS: amLODIPine BESYLATE 5 MG TABLET 10 MG FEED TUBE (08:34)
[2020-07-30] MEDS: PANTOPRAZOLE SODIUM IV 40 MG VIAL IV PUSH (08:34)
[2020-07-30 08:35] VITALS: PULSE 92
[2020-07-30] MEDS: lamoTRIgine 100 MG TABLET 200 MG FEED TUBE (08:35)
[2020-07-30] MEDS: carvediloL 25 MG TABLET FEED TUBE (08:35)
--- NOTE | 2020-07-30 10:47 | PM.DS ---
DS: Admitting Diagnosis Admitting Diagnosis Admitting Diagnosis: aspiration pneumonia,hypoxia,ams DS: Discharge Diagnosis Discharge Diagnosis (1) Hypokalemia: Code(s): E87.6 - Hypokalemia Status: Acute Assessment and Plan: Replaced as needed. (2) Subarachnoid hemorrhage: Code(s): I60.9 - Nontraumatic subarachnoid hemorrhage, unspecified Status: Acute Assessment and Plan: Stable Continue to monitor (3) DVT (deep venous thrombosis): Code(s): I82.409 - Acute embolism and thrombosis of unspecified deep veins of unspecified lower extremity Status: Acute Assessment and Plan: On Eliquis Cleared from previous admission to [facility] to be continued in spite of SAH (4) Nausea and vomiting: Code(s): R11.2 - Nausea with vomiting, unspecified Status: Acute Assessment and Plan: Resolved PPI (5) Aspiration pneumonia: Code(s): J69.0 - Pneumonitis due to inhalation of food and vomit Status: Acute Assessment and Plan: Completed course of Zosyn (6) Hypertension: Code(s): I10 - Essential (primary) hypertension Status: Chronic Assessment and Plan: Continue home meds Continue to monitor (7) Hyperlipidemia: Code(s): E78.5 - Hyperlipidemia, unspecified Status: Chronic Assessment and Plan: Continue to monitor (8) Anxiety: Code(s): F41.9 - Anxiety disorder, unspecified Status: Chronic Assessment and Plan: Continue home meds (9) COVID-19 ruled out by laboratory testing: Code(s): Z03.818 - Encounter for observation for suspected exposure to other biological agents ruled out Status: Acute Assessment and Plan: Ruled out with negative PCR. DS: Summary Time Spent with Patient Time attestation: Total time spent providing and/or coordinating discharge services: Patient was admitted with respiratory distress after aspiration of vomit into the lungs. Patient received iv antibiotic therapy Zosyn x 7 days Covid 19 was ruled out with negative PCR Patient has been discharged to SNF Exam Narrative: Exam Narrative: In bed in no acute distress. Const: General: cooperative, healthy appearing, comfortable, no acute distress, alert, awake and Physically active Nutritional Appearance: average body habitus Orientation/consciousness: oriented to person, patient oriented x3 and Other orientation findings (Pleasantly demented) Other: Dementia. HENMT: Head: normal to inspection and normocephalic Ears: hearing grossly normal bilaterally General nose exam: Normal external nose present Face and sinus: normal facial exam Mouth: Yes Normal oral and palatal mucosa present Eyes: General: appearance normal, both eyes and all related structures Pupils: Equal, round and reactive pupils present EOM: EOMs intact bilaterally Neck: Neck: normal visual inspection, full ROM, no lymphadenopathy and no JVD Lymphatic: no lymphadenopathy noted Resp: Effort & Inspection: normal respiratory effort Auscultation: clear to auscultation bilaterally Cardio: Jugular venous distension: no JVD Rate: regular rate Rhythm: regular rhythm GI: Inspection: normal to inspection GI Palp: Yes Soft to palpation and Yes No hepatosplenomegaly present Other: PEG tube in place Skin: General skin exam: normal color Lesions: no lesions Rashes: no rashes Trauma: no lacerations or abrasions Neuro: General: oriented to person and CN's II-XI intact bilaterally Cranial nerves: Yes CN's II-XII intact bilaterally and Yes Equal, round and reactive pupils present Cognition (Neuro): abnormal cognition (Dementia.) Speech: normal speech Motor exam (neuro): 5/5 motor strength present throughout Extrem: General: normal to inspection and no pedal edema DS: Data Data Completed and Pending Labs on day of discharge: Labs from last 24 hours 07/30/20 07:05 Sodium 138 Potassium 3.4 Chloride 105 Carbon Dioxide
== END 2020-07-30 12:16 | DRG 179 ==
LOC: ANHED 11:15 → ANH3MEDSUR 15:27
PROVIDERS: Emergency Medicine; Internal Medicine; Admitting Provider Family Medicine; Emergency Provider Emergency Medicine; PCP Internal Medicine; Visit Provider Physician Assistant
DX: J69.0 Pneumonitis due to inhalation of food and vomit (principal); E87.6 Hypokalemia; Z03.818 Encounter for observation for suspected exposure to other biological agents ruled out; R09.02 Hypoxemia; R13.19 Other dysphagia; F03.90 Unspecified dementia, unspecified severity, without behavioral disturbance, psychotic disturbance, mood disturbance, and anxiety; I10 Essential (primary) hypertension; E78.5 Hyperlipidemia, unspecified; F41.8 Other specified anxiety disorders; Z66 Do not resuscitate; Z86.79 Personal history of other diseases of the circulatory system; Z86.73 Personal history of transient ischemic attack (TIA), and cerebral infarction without residual deficits; Z86.718 Personal history of other venous thrombosis and embolism; Z93.1 Gastrostomy status; Z87.891 Personal history of nicotine dependence
CPT/HCPCS: 36415; 51701; 71046; 74177; 80048; 80053; 81001; 83605; 83690; 83735; 85025; 85027; 87040; 87635; 92526; 92610; 93005; 96365; 97110; 97162; 97165; 97530; 97535; 99285; A9270; C9113; C9803; G0378; J1100; J1650; J2060; J2543; J7030; Q9967; U0003

== ENCOUNTER 2021-05-02 13:41 | Emergency (ER) | payer MEDICARE, SELFPAY ==
--- NOTE | ~2021-05-02 | CT_ITS ---
EXAMINATION: CT brain wo con DATE: 05/02/2021 14:48 INDICATION: Seizure TECHNIQUE: Computed tomography (CT) of the head was performed without intravenous contrast. Sagittal and coronal reconstructions were performed. The mA was adjusted according to patient size. Iterative reconstruction technique was employed. The dose-length product was 605.33 mGy-cm. COMPARISON: None FINDINGS: Moderate-sized region of encephalomalacia involving adjacent portions of the right frontal and tempor al lobes and the intervening insula in the right middle cerebral artery vascular distribution consist ent with old infarct. Additional small old lacunar infarct versus prominent perivascular space at the inferior left basal ganglia. There is mild to moderate scattered white matter hypoattenuation consis tent with chronic small vessel ischemic disease. No acute intracranial hemorrhage, acute infarction o r abnormal extra axial fluid collection. Symmetric prominence of the sulci consistent with mild age-a ppropriate diffuse cerebral volume loss. Ventricles are normal and symmetric. No mass/mass effect. Ch anges of bilateral intraocular lens replacement. The orbits, paranasal sinuses and mastoid air cells are normal. Mild arthroscopic talus location of the carotid siphons. IMPRESSION: 1. No acute intracranial process. 2. Moderate-sized infarct in the right middle cerebral artery vascular distribution of the right fron mitra and temporal lobes and intervening insula. 3. Possible additional small old lacunar infarct at the inferior left basal ganglia versus prominent perivascular space. 4. Age-related changes including mild diffuse volume loss and mild to moderate scattered periventricu lar predominant white matter hypoattenuation consistent with chronic small vessel ischemic disease. Reviewed, dictated and finalized at location A. IMPRESSION: 1. No acute intracranial process. 2. Moderate-sized infarct in the right middle cerebral artery vascular distribu tion of the right frontal and temporal lobes and intervening insula. 3. Possible additional small old lacunar infarct at the inferior left basal bud glia versus prominent perivascular space. 4. Age-related changes including mild diffuse volume loss and mild to moderate scattered periventricular predominant white matter hypoattenuation consistent w ith chronic small vessel ischemic disease.
--- NOTE | ~2021-05-02 | XR_ITS ---
XR chest 1V portable DATE: 05/02/2021 14:25 INDICATION: Seizure. TECHNIQUE: Portable upright AP chest on 05/02/2021 at 1415 hours COMPARISON: 07/23/2020 AP and lateral chest FINDINGS: Cardiomegaly. Aortic calcification and unfolding. The patient is rotated which may account for mild increased density overlying the right mid and lower lung zone. Mild right-sided infiltrate is not excluded. Repeat PA and lateral projections would be h elpful. No pleural effusion or pulmonary vascular congestion or pneumothorax. Diffuse osteopenia. There is levoscoliosis of the thoracic spine. IMPRESSION: Coronary and aortic atherosclerosis Diffuse osteopenia Cannot exclude mild infiltrate of the right mid and lower lung due to patient rotation Reviewed, dictated and finalized at location B. IMPRESSION: Coronary and aortic atherosclerosis Diffuse osteopenia Cannot exclude mild infiltrate of the right mid and lower lung due to patient r otation
[2021-05-02 13:44] VITALS: BP 161/52; PULSE 65; RESP 18; TEMP 36.6; O2SAT 98
--- NOTE | 2021-05-02 13:48 | ECG_ITS ---
Measurements Intervals [place] Rate: 64 P: 59 NM: 165 QRS: -8 QRSD: 93 T: 33 QT: 402 QTc: 417 Interpretive Statements SINUS RHYTHM DELAYED PRECORDIAL R/S TRANSITION BASELINE ARTIFACT- I, II, III, AVR, AVL, AVF, V1-V6 BORDERLINE ECG Electronically Signed On 05-02-2021 14:36:22 CDT by Pete Cardona D.O.
--- NOTE | 2021-05-02 13:57 | ED.SEIZURE ---
HPI - Seizure General Chief Complaint: Seizure Stated Complaint: SEIZURE LIKE ACTIVITY Time Seen by Provider: 05/02/21 13:48 Source: RN notes reviewed History of Present Illness HPI Narrative: Patient presents to emergency department for possible seizure. Patient states she was getting her hair done today when she began to have uncontrollable shaking states that involves her upper and lower extremities patient states she was awake during this episode new she was shaking but cannot stop that lasted for approximately 5 minutes. Patient states she does have a history of partial complex seizures for which she is on lamotrigine but these involve her staring off and being unresponsive patient not having loss of bowel or bladder denies biting her tongue. Patient is currently awake and alert x3 she denies any pain. She states she does have a history of a recent aneurysm had mild leaking was seen at [facility] but the patient was not deemed a surgical candidate and no further clipping of the aneurysm was performed patient denies any recent illness denies any fevers or chills chest pain or shortness of breath Seizure History: Yes Related Data Home Medications Medication Instructions Recorded Confirmed acetaminophen 325 mg FEEDING TUBE Q4-5H PRN 07/23/20 07/23/20 albuterol sulfate 2 puff INHALATION Q4-5H PRN 07/23/20 07/23/20 amlodipine 10 mg FEEDING TUBE DAILY 07/23/20 07/23/20 apixaban 5 mg FEEDING TUBE BID 07/23/20 07/23/20 atorvastatin 10 mg FEEDING TUBE DAILY 07/23/20 07/23/20 bisacodyl 10 mg NV DAILY PRN 07/23/20 07/23/20 carvedilol 25 mg FEEDING TUBE BID 07/23/20 07/23/20 cholecalciferol (vitamin D3) 10 mcg FEEDING TUBE DAILY 07/23/20 07/23/20 [Vitamin D3] lamotrigine 200 mg FEEDING TUBE BID 07/23/20 07/23/20 lansoprazole 30 mg PO DAILY 07/23/20 07/23/20 mirtazapine 15 mg PO HS 07/23/20 07/23/20 polyethylene glycol 1 ea MISCELLANEOUS PRN 07/23/20 07/23/20 Allergies Allergy/AdvReac Type Severity Reaction Status Date / Time No Known Allergies Allergy Verified 05/02/21 15:10 Review of Systems Review of Systems: Gen.: Denies fevers or chills Eyes: Denies eye pain or visual change ENT: Denies congestion Respiratory: Denies shortness of breath or cough CV: Denies chest pain or palpitations GI: Denies abdominal pain nausea, emesis or diarrhea Musculoskeletal: Denies back pain or muscle pain Neuro: See HPI Skin: Denies rash Except as documented, all other systems reviewed and negative [facility] Past Medical History Medical History Anxiety Brain aneurysm CVA (cerebral vascular accident) Dementia Depression Hyperlipidemia Hypertension Subarachnoid bleed Surgical History Surgical History Gastrostomy tube in place Family History Family History Father Diabetes mellitus Social History Social History Social History: Resides at [facility]. The patient is listed as a DNR. Her son is listed as a durable power divorce attorney for healthcare. The patient is being listed as . She is retired. Only her son day but is listed is listed as contact. Years smoked: 60 Smoking status: Former smoker Tobacco type: cigarettes Alcohol intake: never Substance use: never Gender identity (if verbalized by the patient): Female Spiritual care concerns: No Exam Narrative: APPEARANCE: No acute distress, nontoxic, resting in bed HEENT: Normocephalic, atraumatic, OMM, EYES: PERRL, EOMI NECK: Supple, nontender, full range of motion without pain, no meningismus RESPIRATORY: No respiratory distress, clear to auscultation bilaterally with no rhonchi wheezing or rales CARDIOVASCULAR: RRR s murmur ABDOMINAL: Soft, nontender, nondistended MUSCULOSKELETAL: Moves all extremities. No clubbing, cyanosis or pradip
[2021-05-02 14:46] LABS: Basophils Percent Auto 0.2 % (0.2-1.2); Hematocrit 39.7 % (37.0-47.0); Hemoglobin 12.5 g/dL (12.0-15.0); Immature Granulocyte Absolute 0.03 K/mm3 (0.00-0.031); Immature Granulocyte Percent A 0.2 % (0-0.5); Lymphocytes Absolute Auto 1.85 K/mm3 (0.9-3.2); Lymphocytes Percent Auto 14.9 % (18.3-44.2); Mean Corpuscular HGB Conc 31.5 g/dl (32-36); Mean Corpuscular Hemoglobin 29.1 pg (26-34); Mean Corpuscular Volume 92.5 fl (80-100); Mean Platelet Volume 8.6 fl (7.4-10.4); Monocytes Absolute Auto 0.9 K/mm3 (0.1-0.6); Monocytes Percent Auto 7.4 % (2.6-8.5); Neutrophils Absolute Auto 9.6 K/mm3 (1.3-6.7); Neutrophils Percent Auto 77.3 % (45.5-73.1); Platelet Count Result 284 k/mm3 (150-375); Red Blood Count 4.29 M/mm3 (4.2-5.4); Red Cell Distribution Width 14.2 % (11.5-14.5); White Blood Count 12.4 K/mm3 (4.5-10.0)
[2021-05-02 14:56] LABS: Alanine Aminotransferase 12 U/L (4-35); Albumin Level 4.5 g/dL (3.5-5.1); Alkaline Phosphatase 87 U/L (38-126); Anion Gap 9 mmol/L (8-16); Aspartate Amino Transferase 23 U/L (14-36); Bilirubin,Total 0.4 mg/dL (0.2-1.3); Blood Urea Nitrogen 13 mg/dL (7-17); Calcium 9.7 mg/dL (8.4-10.2); Carbon Dioxide 24 mmol/L (22-30); Chloride 102 mmol/L (98-107); Estimated Glomerular Filt Rate > 60; Glucose 115 mg/dL (65-110); Potassium 4.1 mmol/L (3.4-5.0); Sodium 135 mmol/L (137-145)
[2021-05-02 14:57] LABS: Partial Thromboplastin Time 26.7 SECONDS (22.3-36.8); Prothrombin Time 12.9 Seconds (11.1-14.7)
[2021-05-02 15:01] VITALS: BP 136/48; PULSE 60; RESP 18; O2SAT 95
[2021-05-02 15:08] LABS: Troponin I < 0.012 ng/mL (0.000-0.034)
[2021-05-02 16:07] LABS: Add Urine Microscopic? YES; Appearance Urine Clear (Clear); Bilirubin Urine Negative (Negative); Blood Urine Negative (Negative); Color Urine Yellow (Yellow); Glucose Urine UA Negative (Negative); Ketones Urine Negative (Negative); Leukocyte Esterase Ur Negative LEU/UL (Negative); Mucus Urine Rare /lpf; Nitrate Urine Negative (Negative); Protein Urine 1+ mg/dL (Negative); RBC Urine 0-2 /hpf (0-2); Specific Grav Ur 1.013 (1.001-1.035); Squamous Epithelial Cell Urine Rare /hpf (Few); Urobilinogen Urine Negative mg/dL (<2.0); WBC Urine 0-3 /hpf
[2021-05-02 16:32] VITALS: BP 134/57; PULSE 65; RESP 19; O2SAT 99
[2021-05-02 17:15] VITALS: BP 132/56; PULSE 63; RESP 14; O2SAT 98
[2021-05-02 18:10] VITALS: BP 134/56; PULSE 64; RESP 16; TEMP 36.9; O2SAT 99
== END 2021-05-02 18:10 | disposition home or self-care (01) ==
PROVIDERS: Emergency Provider Emergency Medicine; PCP Internal Medicine
DX: R25.9 Unspecified abnormal involuntary movements (principal); F03.90 Unspecified dementia, unspecified severity, without behavioral disturbance, psychotic disturbance, mood disturbance, and anxiety; E78.5 Hyperlipidemia, unspecified; I10 Essential (primary) hypertension; Z86.73 Personal history of transient ischemic attack (TIA), and cerebral infarction without residual deficits; Z79.01 Long term (current) use of anticoagulants; Z66 Do not resuscitate; Z93.1 Gastrostomy status; Z87.891 Personal history of nicotine dependence; M85.88 Other specified disorders of bone density and structure, other site; R94.31 Abnormal electrocardiogram [ECG] [EKG]
CPT/HCPCS: 36415; 51701; 70450; 71045; 80053; 81001; 84484; 85025; 85610; 85730; 93005; 99284

== ENCOUNTER 2024-08-09 19:38 | Observation (INO) | payer MEDICARE, SELFPAY ==
--- NOTE | ~2024-08-09 | CT_ITS ---
Clinical Indication: Elevated d-dimer CT Scan of the Chest with Contrast: Technique: Contiguous sections were acquired throughout the chest after intravenous administration of 100 cc of Omnipaque 350. Dose reduction technique was used on this scan by utilizing automated expos ure control and iterative reconstruction technique. The dose-length product (DLP) was 621.33 mGy-cm. Findings: There is no evidence of any significant mediastinal, hilar or axillary lymphadenopathy. There is no f illing defect in the pulmonary arterial tree to suggest pulmonary embolus. There is no evidence of ao rtic dissection or aneurysm. There is no evidence of pleural or pericardial effusion. There is mild to moderate emphysema. No pulmonary nodule or consolidation. Images through the upper abdomen reveal no abnormalities. Impression: No evidence of pulmonary embolus, aortic dissection, or aortic aneurysm. [id number] emphysema. Reviewed, dictated and finalized at [facility]. CE AUTOMATION TECHNICIAN Impression: No evidence of pulmonary embolus, aortic dissection, or aortic aneurysm. [id number] emphysema.
--- NOTE | ~2024-08-09 | XR_ITS ---
EXAMINATION: XR chest 1V portable Exam Date/Time: 08/14/2024 17:29 BUILD AUTOMATION ENGINEER HISTORY: worsening cough Comparison: 08/12/2024; CTPA 08/10/2024. RESULT: Lines, tubes, and devices: None. Lungs and pleura: Emphysematous change. Mild diffuse reticular opacities. No focal consolidation. Ri ght lower lung calcified granulomas. Cardiomediastinal silhouette: Stable. Other: No acute osseous or upper abdominal finding. IMPRESSION: Mild interstitial edema. Reviewed, dictated and finalized at location K. D AUTOMATION ENGINEER IMPRESSION: Mild interstitial edema.
--- NOTE | ~2024-08-09 | CT_ITS ---
History: Found down after a fall PROCEDURE: CT head without contrast. COMPARISON: 05/02/2021 TECHNIQUE: Axial imaging of the head performed from the skull base to the vertex without IV contrast. Sagittal a nd coronal reformations obtained. DLP: 1059 mGy-cm FINDINGS: Encephalomalacia and gliosis is identified within the right temporal and the lateral margin of the ri ght frontal lobe as well as the insula consistent with prior cerebral infarction likely within the ri ght MCA distribution. Decreased attenuation within the periventricular white matter, unchanged from prior likely secondary to microvascular ischemic disease. The ventricles are enlarged, with a corresponding prominence of the sulci, not uncommon in the [facility] ent brain. There is no mass, mass effect or midline shift. There is no abnormal extra-axial fluid collection or intracranial hemorrhage. Visualized paranasal sinuses are clear. The mastoid air cells are well aerated. No acute displaced fractures within the overlying cranium. Impression: No acute intracranial hemorrhage or suspicious mass effect. 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 Reviewed, dictated and finalized at location A. ARCH PHARMACIST Impression: No acute intracranial hemorrhage or suspicious mass effect. 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
--- NOTE | ~2024-08-09 | XR_ITS ---
CHEST RADIOGRAPH, PA AND LATERAL CLINICAL HISTORY: weakness . COMPARISON: 05/02/2021 TECHNIQUE: PA and lateral views of the chest. FINDINGS The cardiomediastinal silhouette is unremarkable. The lungs are clear. Visualized osseous structures and soft tissues are unremarkable. IMPRESSION: No focal infiltrate or effusion. Reviewed, dictated and finalized at location A. HING ASSISTANT
--- NOTE | ~2024-08-09 | XR_ITS ---
Portable chest x-ray Comparison: 08/09/2024 Clinical History: Shortness of breath Findings: There is probable mild central congestive change and possible minimal interstitial edema. Cardiomediastinal silhouette is stable. Bones and soft tissues are unremarkable. Impression: Central venous congestive change and probable minimal interstitial edema. Reviewed, dictated and finalized at [facility]. SHOP MANAGER Impression: Central venous congestive change and probable minimal interstitial edema.
--- NOTE | ~2024-08-09 | XR_ITS ---
HISTORY: tailbone pain after fall COMPARISON: None TECHNIQUE: 3 views of the lower spine were performed. FINDINGS: No acute fracture of the distal coccyx with posterior displacement of fracture fragments. Significant fecal stasis within the rectum. No additional acute fractures are noted. IMPRESSION: Acute fracture the distal coccyx with posterior displacement of the fracture fragment Reviewed, dictated and finalized at location A. CH CLEANER IMPRESSION: Acute fracture the distal coccyx with posterior displacement of th e fracture fragment
[2024-08-09 20:02] VITALS: BP 119/46; PULSE 71; RESP 15; TEMP 36.3; O2SAT 94
--- NOTE | 2024-08-09 20:05 | ECG_ITS ---
Test Date: 2024-08-09 22:57:39 Measurements Intervals [place] Rate: 65 P: 83 NM: 177 QRS: 9 QRSD: 74 T: 50 QT: 382 QTc: 399 Interpretive Statements SINUS RHYTHM CONSIDER ANTERIOR INFARCT, AGE INDETERMINATE BORDERLINE ST-T WAVE ABNORMALITY- DIFFUSE LEADS BASELINE ARTIFACT- I, II, III, AVR, AVL, AVF, V4-V6 ABNORMAL ECG No previous ECG available for comparison Electronically Signed On 08-10-2024 06:27:38 VAULT MAKER by Pete Cardona D.O.
--- NOTE | 2024-08-09 20:12 | ECG_ITS ---
Test Date: 2024-08-09 20:12:00 Measurements Intervals [place] Rate: 70 P: 41 MN: 150 QRS: -4 QRSD: 84 T: 44 QT: 380 QTc: 412 Interpretive Statements SINUS RHYTHM POSSIBLE ANTERIOR MYOCARDIAL INFARCTION , OF INDETERMINATE AGE BORDERLINE ST-T WAVE ABNORMALITY- DIFFUSE LEADS BASELINE ARTIFACT- I, II, AVR, AVL, AVF, V4-V6 ABNORMAL ECG No previous ECG available for comparison Electronically Signed On 08-10-2024 10:56:00 [employer] HCM DEVELOPER by Pete Cardona D.O.
[2024-08-09 20:47] LABS: Basophils Percent Auto 0.2 % (0.2-1.2); Hematocrit 39.8 % (37.0-47.0); Hemoglobin 13.3 g/dL (12.0-15.0); Immature Granulocyte Absolute 0.05 K/mm3 (0.00-0.031); Immature Granulocyte Percent A 0.4 % (0-0.5); Lymphocytes Absolute Auto 0.88 K/mm3 (0.9-3.2); Lymphocytes Percent Auto 6.4 % (18.3-44.2); Mean Corpuscular HGB Conc 33.4 g/dl (32-36); Mean Corpuscular Hemoglobin 31.2 pg (26-34); Mean Corpuscular Volume 93.4 fl (80-100); Mean Platelet Volume 8.7 fl (7.4-10.4); Monocytes Absolute Auto 1.1 K/mm3 (0.1-0.6); Monocytes Percent Auto 7.6 % (2.6-8.5); Neutrophils Absolute Auto 11.8 K/mm3 (1.3-6.7); Neutrophils Percent Auto 85.4 % (45.5-73.1); Platelet Count Result 282 k/mm3 (150-375); Red Blood Count 4.26 M/mm3 (4.2-5.4); Red Cell Distribution Width 13.3 % (11.5-14.5); White Blood Count 13.8 K/mm3 (4.5-10.0)
[2024-08-09 21:01] LABS: Alanine Aminotransferase 24 U/L (6-35); Albumin Level 4.3 g/dL (3.5-5.1); Alkaline Phosphatase 61 U/L (38-126); Anion Gap 8 mmol/L (4-12); Aspartate Amino Transferase 69 U/L (14-36); Bilirubin,Total 1.6 mg/dL (0.2-1.3); Blood Urea Nitrogen 15 mg/dL (7-17); Calcium 8.7 mg/dL (8.4-10.2); Carbon Dioxide 23 mmol/L (22-30); Chloride 104 mmol/L (98-107); Estimated CRCL calculation 37 ml/min; Estimated Glomerular Filt Rate > 60; Glucose 148 mg/dL (65-110); Potassium 3.5 mmol/L (3.4-5.0); Sodium 135 mmol/L (137-145)
[2024-08-09 21:32] LABS: Creatine Kinase 6199 U/L (30-135)
[2024-08-09 21:48] LABS: Troponin I < 0.012 ng/mL (0.000-0.034)
--- NOTE | 2024-08-09 22:54 | ED_ITS ---
HPI - Weakness General Chief complaint: Weakness Stated complaint: fall, weakness, fast heartbeat, hx afib Time Seen by Provider: 08/09/24 22:33 Source: patient and family Limitations: no limitations History of Present Illness HPI Narrative: Patient presents after a fall in with report of weakness. She notes that she has been more lethargic and always feels tired recently. She has fallen 1 or 2 times last week. Today she leaned out of her chair and when she fell she landed on her back and butt and notes that she was too weak to get up so she was on the ground for several hours. Denies loss of consciousness. Denies hitting her h ead. She is having some pain at her tailbone. She feels like lately she has had a fast heart rate, does not know if she has ever been diagnosed with atrial fibrillation but not on anticoagulation (states she can't be due to known cerebral aneurysm). For 2 days she intermittently and sense of palpitations although not now. Patient had a CVA when she was 32 years old had been attributed to control pills which she had been placed on for migraine management. No deficits as a result of the CVA and she does not have migraines any longer (not since menopause). She does smoke. Lately she has been coughing but denies any fever, chest pain, or shortness of breath. States she has issues with her sinuses. Patient had put a foot brace on her left lower extremity earlier because of some bruising and swelling. Lives by herself. Her PCP is Dr. Mauricio. Related Data Home Medications Medication Instructions Recorded Confirmed acetaminophen 325 mg capsule 325 mg PO Q4-5H PRN Pain 07/23/20 08/10/24 albuterol sulfate 90 mcg/actuation 2 puff inhalation Q4-5H PRN 07/23/20 08/10/24 aerosol inhaler Shortness Of Breath amlodipine 10 mg tablet 10 mg PO DAILY 07/23/20 08/10/24 atorvastatin 10 mg tablet 10 mg PO HS 07/23/20 08/10/24 carvedilol 25 mg tablet 25 mg PO BID 07/23/20 08/10/24 lamotrigine 200 mg tablet 200 mg PO QPM 07/23/20 08/10/24 mirtazapine 15 mg tablet 30 mg PO HS 07/23/20 08/10/24 cranberry extract 300 mg tablet 300 mg PO BID 08/10/24 08/10/24 lamotrigine 100 mg tablet 100 mg PO DAILY 08/10/24 08/10/24 (Lamictal) risperidone 0.5 mg tablet 0.5 mg PO BID 08/10/24 08/10/24 Allergies Allergy/AdvReac Type Severity Reaction Status Date / Time No Known Allergies Allergy Verified 05/02/21 15:10 PMFSH Past Medical History Medical History (Updated 08/10/24 @ 18:27 by Nat Rich MD) Anxiety Brain aneurysm CVA (cerebral vascular accident) 32yo Dementia Depression Hyperlipidemia Hypertension Subarachnoid bleed Surgical History Surgical History Gastrostomy tube in place Family History Family History Father Diabetes mellitus Social History Social History (Updated 08/10/24 @ 18:31 by Nat Rich MD) Social History: Resides at [facility]. The patient is listed as a DNR. Her son is listed as a durable power research attorney for healthcare. The patient is being listed as . She is retired. Only her son day but is listed is listed as contact. Years smoked: 60 Smoking status: Current every day smoker Alcohol intake: never Substance use: never Do You Feel Safe in your Home?: Yes Lack of Transportation: No Lack of Food: Never True Current Housing: I Have Housing Concerned About Future Housing: No Difficulty Paying Gas/Electric Bills: No Difficulty Paying for Meds: No Currently Unemployed: No Education: Bachelor's Degree Difficulty w/ Childcare or Family Care: No Living arrangements: alone Gender identity (if verbalized by the patient): Female Spiritual care concerns: No Exam Narrative: GENERAL: Well-appearing, well-nourished, and in no acute distress. HEAD: Normocephalic, atraumatic. EYES: Non injected, non icteric ENT: Nares clear, no rhinorrhea or epistaxis. NECK: Supple. CHEST: Speaking in full sentences. No respiratory distress. Patient does have bilateral wheezes on auscultation. HEART: Regular rate and rhythm. . ABDOMEN: Soft, nondistended. EXTREMITIES: Bilateral lower extremity edema though slightly asymmetric. Patient does have a walking boot on her left lower extremity. SKIN: Warm, dry, no rash. NEURO: No focal deficits. Alert and oriented x3. Sensation intact to gross touch throughout. PSYCH: Normal mood and affect. Course Vital Signs Vital signs: Vital Signs Temperature 97.3 F L 08/09/24 20:02 Pulse Rate 71 08/09/24 20:02 Respiratory Rate 15 08/09/24 20:02 Blood Pressure 119/46 L 08/09/24 20:02 Pulse Oximetry 94 08/09/24 20:02 Oxygen Delivery Room Air 08/09/24 20:02 Temperature 96.8 F L 08/10/24 14:00 Pulse Rate 89 08/10/24 15:05 Respiratory Rate 20 08/10/24 14:00 Blood Pressure 122/42 L 08/10/24 14:00 Pulse Oximetry 90 08/10/24 14:00 Oxygen Delivery Nasal Cannula 08/10/24 10:32 Oxygen Flow Rate 2 08/10/24 10:32 MDM - Weakness MDM Narrative Medical decision making narrative: Patient presents after a fall in which she leaned out of her chair and fell to the ground and was too weak to get up. She has been dealing with weakness, lethargy and increased fatigue lately and has had 1 or 2 falls in the past week. She also reports some palpitations recently. In the emergency department she is afebrile with acceptable vital signs although a low diastolic blood pressure initially. Patient has a CPK of approximately 6200. Will begin IV fluid rehydration for rhabdomyolysis. BNP is elevated at 13 30 with no prior for comparison. She did have trace to 1+ edema in the lower extremities but chest x-ray not grossly volume overloaded. Patient has a history of an aneurysm and a stroke. Previously told that she should not be on anticoagulation and that her blood pressure should be kept low as result. Upon reassessment after patient has received 1 DuoNeb treatment, she no longer has wheezes on exam. She is having some tailbone pain and, given the presence of a fracture, analgesic medication is ordered. CTA performed given elevated dimer that cannot be age adjusted. There is a delay in this study being performed as well as a delay in this study being interpreted by Radiology offsite. Had already discussed with patient and her son the need for admission once this was performed given her rhabdomyolysis. They verified understanding. CT without acute process. Patient discussed with on-call hospitalist Dr Christie who advises on maintenance IVF amount. Differential Diagnosis Differential diagnosis: Likely anemia, hypoglycemia, rhabdomyolysis, sepsis (Pneumonia, urinary tract infection), dehydration and other (New onset COPD, tailbone fracture; pulmonary embolism) Lab Data Attestation: I reviewed the patient's lab results. Lab results narrative: AST elevation Leukocytosis 08/10/24 09:23 08/10/24 09:23 Labs: Lab Results 08/09/24 08/09/24 08/10/24 Range/Units 20:17 20:17 00:12 WBC 13.8 H (4.5-10.0) K/mm3 RBC 4.26 (4.2-5.4) M/mm3 Hgb 13.3 (12.0-15.0) g/dL Hct 39.8 (37.0-47.0) % MCV 93.4 (80-100) fl MCH 31.2 (26-34) pg MCHC 33.4 (32-36) g/dl RDW 13.3 (11.5-14.5) % Plt Count 282 (150-375) k/mm3 MPV 8.7 (7.4-10.4) fl Immature Gran % (Auto) 0.4 (0-0.5) % Neut % (Auto) 85.4 H (45.5-73.1) % Lymph % (Auto) 6.4 L (18.3-44.2) % [place] % (Auto) 7.6 (2.6-8.5) % Eos % (Auto) 0.0 (0-4.4) % Baso % (Auto) 0.2 (0.2-1.2) % Lymph # (Auto) 0.88 L (0.9-3.2) K/mm3 [place] # (Auto) 1.1 H (0.1-0.6) K/mm3 Eos # (Auto) 0.0 (0-0.3) K/mm3 Baso # (Auto) 0.0 (0.0-0.1) K/mm3 Abs Immat Gran (auto) 0.05 H (0.00-0.031) K/mm3 Absolute Neuts (auto) 11.8 H (1.3-6.7) K/mm3 Absolute Nucleated RBC 0.000 (0.0-0.012) K/mm3 Nucleated RBC % 0.0 (0.0-0.2) % D-Dimer 2.84 H (<0.48) ug/mL Sodium 135 L (137-145) mmol/L Potassium 3.5 (3.4-5.0) mmol/L Chloride 104 (98-107) mmol/L Carbon Dioxide 23 (22-30) mmol/L Anion Gap 8 (4-12) mmol/L BUN 15 (7-17) mg/dL Creatinine 0.80 (0.7-1.0) mg/dL Estim Creat Clear Calc 37 ml/min Estimated GFR > 60 (59 - ) Glucose 148 H (65-110) mg/dL Calcium 8.7 (8.4-10.2) mg/dL Total Bilirubin 1.6 H (0.2-1.3) mg/dL AST 69 H (14-36) U/L ALT 24 (6-35) U/L Alkaline Phosphatase 61 (38-126) U/L Total Creatine Kinase 6199 H Cancelled (30-135) U/L Troponin I < 0.012 (0.000-0.034) ng/mL NT-Pro-B Natriuret Pep 1330 H (19.9-100) pg/mL Total Protein 7.0 (6.3-8.2) g/dL Albumin 4.3 (3.5-5.1) g/dL Urine Color (Yellow) Urine Appearance (Clear) Urine pH (5.0-9.0) Ur Specific [place] (1.001-1.035) Urine Protein (Negative) mg/dL Urine Glucose (UA) (Negative) mg/dL Urine Ketones (Negative) mg/dL Ur Blood (Man) (Negative) Urine Nitrate (Negative) Urine Bilirubin (Negative) Urine Urobilinogen (<2.0) mg/dL Leukocyte Esterase Rfl (Negative) ABBEY/UL Urine RBC (0-2) /hpf Urine WBC (0-3) /hpf Ur Squamous Epith Cells (Few) /hpf Urine Bacteria /hpf Urine Casts Influenza A (RT-PCR) Negative (Negative) Influenza B (RT-PCR) Negative (Negative) RSV (RT-PCR) Negative (Negative) SARS-CoV-2 RNA (RT-PCR) Negative (Negative) 08/10/24 Range/Units 00:49 WBC (4.5-10.0) K/mm3 RBC (4.2-5.4) M/mm3 Hgb (12.0-15.0) g/dL Hct (37.0-47.0) % MCV (80-100) fl MCH (26-34) pg MCHC (32-36) g/dl RDW (11.5-14.5) % Plt Count (150-375) k/mm3 MPV (7.4-10.4) fl Immature Gran % (Auto) (0-0.5) % Neut % (Auto) (45.5-73.1) % Lymph % (Auto) (18.3-44.2) % [place] % (Auto) (2.6-8.5) % Eos % (Auto) (0-4.4) % Baso % (Auto) (0.2-1.2) % Lymph # (Auto) (0.9-3.2) K/mm3 [place] # (Auto) (0.1-0.6) K/mm3 Eos # (Auto) (0-0.3) K/mm3 Baso # (Auto) (0.0-0.1) K/mm3 Abs Immat Gran (auto) (0.00-0.031) K/mm3 Absolute Neuts (auto) (1.3-6.7) K/mm3 Absolute Nucleated RBC (0.0-0.012) K/mm3 Nucleated RBC % (0.0-0.2) % D-Dimer (<0.48) ug/mL Sodium (137-145) mmol/L Potassium (3.4-5.0) mmol/L Chloride (98-107) mmol/L Carbon Dioxide (22-30) mmol/L Anion Gap (4-12) mmol/L BUN (7-17) mg/dL Creatinine (0.7-1.0) mg/dL Estim Creat Clear Calc ml/min Estimated GFR (59 - ) Glucose (65-110) mg/dL Calcium (8.4-10.2) mg/dL Total Bilirubin (0.2-1.3) mg/dL AST (14-36) U/L ALT (6-35) U/L Alkaline Phosphatase (38-126) U/L Total Creatine Kinase (30-135) U/L Troponin I (0.000-0.034) ng/mL NT-Pro-B Natriuret Pep (19.9-100) pg/mL Total Protein (6.3-8.2) g/dL Albumin (3.5-5.1) g/dL Urine Color Dark yellow (Yellow) Urine Appearance Clear (Clear) Urine pH 6.5 (5.0-9.0) Ur Specific [place] 1.020 (1.001-1.035) Urine Protein 1+ H (Negative) mg/dL Urine Glucose (UA) Negative (Negative) mg/dL Urine Ketones 1+ H (Negative) mg/dL Ur Blood (Man) Negative (Negative) Urine Nitrate Negative (Negative) Urine Bilirubin Negative (Negative) Urine Urobilinogen 1.0 (<2.0) mg/dL Leukocyte Esterase Rfl Negative (Negative) ABBEY/UL Urine RBC 0-2 (0-2) /hpf Urine WBC 0-5 (0-3) /hpf Ur Squamous Epith Cells None seen (Few) /hpf Urine Bacteria None seen /hpf Urine Casts 3-5 Influenza A (RT-PCR) (Negative) Influenza B (RT-PCR) (Negative) RSV (RT-PCR) (Negative) SARS-CoV-2 RNA (RT-PCR) (Negative) Imaging Data Radiologist's impression: CTA CHEST STAT RAD: Imaging was obtained to the level of the inferior right kidney. Limited examination given motion artifact. Despite this, no evidence of pulmonary embolism within the pulmonary outflow tract or proximal branches. Mild dependent atelectatic change. Cardiomegaly. No acute findings within the visualized abdomen. No other acute findings. Cardiomegaly. No other acute findings within the visualized abdomen. No other acute findings. Impressions Chest X-Ray 08/09/24 20:46 IMPRESSION: No focal infiltrate or effusion. Sacrum and Coccyx X-Ray 08/09/24 23:49 IMPRESSION: Acute fracture the distal coccyx with posterior displacement of the fracture fragment Head CT 08/09/24 23:53 Impression: No acute intracranial hemorrhage or suspicious mass effect. 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 Chest CTA 08/10/24 06:19 Impression: No evidence of pulmonary embolus, aortic dissection, or aortic aneurysm. [id number] emphysema. ECG Data EKG #1: Attestation: I personally reviewed and interpreted this ECG as follows: ECG completion date: 08/09/24 ECG completion time: 20:12 Interpretation: Normal sinus rhythm at a rate of [address] interval 150. QRS 84. QT/QTC 380/4 1. T-wave flattening in lead 3 but otherwise upright in normal in contiguous inferior leads 2 and AVF. T-wave inversion in V2 and V3. EKG #2: Attestation: I personally reviewed and interpreted this ECG as follows: ECG completion date: 08/09/24 ECG completion time: 22:57 Interpretation: Normal sinus rhythm at a rate of [address] interval 177. QRS 74. QT/QTC 382/394. T-wave flattening in lead 3. T-wave flattening in V3. Otherwise T-waves in contiguous inferior leads and precordial leads V4 through V6 appear appropriate. Discharge Plan Discharge Clinical Impression: Falls, Generalized weakness, Elevated AST (SGOT), Leukocytosis, Rhabdomyolysis Fracture of coccyx Qualifiers: Encounter type: initial encounter Patient Disposition: Still a Patient Condition: Stable
[2024-08-09 23:24] VITALS: PULSE 66; RESP 18
[2024-08-09] MEDS: IPRATROPIUM 0.5 MG/ALBUTEROL SULFATE 2.5 MG AMPUL.NEB 3 ML INHALATION (23:24)
[2024-08-09 23:31] VITALS: PULSE 64; RESP 18
[2024-08-09 23:34] VITALS: BP 156/72; PULSE 85; RESP 16; O2SAT 98
[2024-08-09 23:47] LABS: NT Pro B Type Natriuretic Pept 1330 pg/mL (19.9-100)
[2024-08-10] VITALS (28 sets, daily range): BP systolic 118–170; BP diastolic 42–92; PULSE 61–89; RESP 16–22; TEMP 36–37; O2SAT 86–97
[2024-08-10] MEDS: SODIUM CHLORIDE 0.9% IV 1,000 ML 999 ML IV CONT (00:03)
[2024-08-10 00:33] LABS: D Dimer 2.84 ug/mL (<0.48)
[2024-08-10 00:55] LABS: Influenza A QL RT-PCR Negative (Negative); Influenza B QL RT-PCR Negative (Negative); RSV RNA, RT-PCR Negative (Negative); SARS-CoV-2 RNA PCR Negative (Negative)
[2024-08-10 00:59] LABS: Add Urine Microscopic? YES; Appearance Urine Clear (Clear); Bacteria Urine None Seen /hpf; Bilirubin Urine Negative (Negative); Blood Urine Negative (Negative); Color Urine Dark Yellow (Yellow); Glucose Urine UA Negative (Negative); Ketones Urine 1+ mg/dL (Negative); Leukocyte Esterase Ur Negative LEU/UL (Negative); Nitrate Urine Negative (Negative); Protein Urine 1+ mg/dL (Negative); RBC Urine 0-2 /hpf (0-2); Squamous Epithelial Cell Urine None Seen /hpf (Few); WBC Urine 0-5 /hpf (0-3); pH Urine 6.5 (5.0-9.0)
[2024-08-10] MEDS: HYDROcodone/acetaminophen (*CRX) 5-325 MG TABLET 1 TAB PO ×2 (01:45→20:12)
[2024-08-10] MEDS: BENZONATATE 100 MG CAPSULE PO (02:05)
[2024-08-10] MEDS: LACTATED RINGERS 1,000 ML 125 ML IV CONT ×2 (06:55→15:07)
--- NOTE | 2024-08-10 07:01 | PC.NURSE ---
Pt refuses hospital gown stating she wants to stay in what she is wearing
[2024-08-10] MEDS: carvediloL 25 MG TABLET PO ×2 (09:04→15:05)
[2024-08-10] MEDS: lamoTRIgine 100 MG TABLET PO (09:05)
[2024-08-10] MEDS: amLODIPine BESYLATE 10 MG TABLET PO (09:05)
[2024-08-10] MEDS: risperiDONE 0.5 MG TABLET PO ×2 (09:08→20:11)
[2024-08-10] MEDS: guaiFENesin 12 HR 600 MG TABCR PO ×2 (09:16→20:11)
[2024-08-10 09:32] LABS: Basophils Percent Auto 0.2 % (0.2-1.2); Eosinophils Percent Auto 0.1 % (0-4.4); Hematocrit 36.9 % (37.0-47.0); Hemoglobin 12.1 g/dL (12.0-15.0); Immature Granulocyte Absolute 0.04 K/mm3 (0.00-0.031); Immature Granulocyte Percent A 0.4 % (0-0.5); Lymphocytes Absolute Auto 1.28 K/mm3 (0.9-3.2); Lymphocytes Percent Auto 11.7 % (18.3-44.2); Mean Corpuscular HGB Conc 32.8 g/dl (32-36); Mean Corpuscular Hemoglobin 31.2 pg (26-34); Mean Corpuscular Volume 95.1 fl (80-100); Mean Platelet Volume 8.5 fl (7.4-10.4); Monocytes Percent Auto 9.1 % (2.6-8.5); Neutrophils Absolute Auto 8.6 K/mm3 (1.3-6.7); Neutrophils Percent Auto 78.5 % (45.5-73.1); Platelet Count Result 236 k/mm3 (150-375); Red Blood Count 3.88 M/mm3 (4.2-5.4); Red Cell Distribution Width 13.4 % (11.5-14.5); White Blood Count 10.9 K/mm3 (4.5-10.0)
--- NOTE | 2024-08-10 09:45 | P.CONOP_ITS ---
Assessment and Plan Assessment and plan (1) Fracture of coccyx: Qualifiers: Encounter type: initial encounter Code(s): S32.2XXA - Fracture of coccyx, initial encounter for closed fracture Status: Acute Assessment and Plan: Patient has a coccyx fracture. She is tender and has pain with any palpation or manipulation. I discussed the treatment of this fracture with the patient. Symptomatic treatment is what is done. The overall alignment isn't terrible. She does have minimal displacement. Generally this will heal in the position it is in. Unfortunately during the time of healing it is often quite painful. I have recommended follow-up in the office in a month. If she has any changes or problems I have asked her to call be happy to see her at any time. History of Present Illness HPI Consult date: 08/10/24 Chief complaint: rhabdomyolysis,generalized weakness,PT/OT eval Narrative: Patient is an 89-year-old lady fell landing on her buttocks. She has significant pain in the lower back and buttock area and has a coccyx fracture. Review of Systems Review of Systems: Limited ROS due to mental status with pertinent positives and negatives as per HPI. Musculoskeletal: Musculoskeletal: Reports back pain, Reports myalgias and Reports stiffness PMFSH Past Medical History Medical History Anxiety Brain aneurysm CVA (cerebral vascular accident) Dementia Depression Hyperlipidemia Hypertension Subarachnoid bleed Surgical History Surgical History Gastrostomy tube in place Family History Family History Father Diabetes mellitus Social History Social History Social History: Resides at [facility]. The patient is listed as a DNR. Her son is listed as a durable power finance attorney for healthcare. The patient is being listed as . She is retired. Only her son day but is listed is listed as contact. Years smoked: 60 Smoking status: Former smoker Alcohol intake: never Substance use: never Do You Feel Safe in your Home?: Yes Lack of Transportation: No Lack of Food: Never True Current Housing: I Have Housing Concerned About Future Housing: No Difficulty Paying Gas/Electric Bills: No Difficulty Paying for Meds: No Currently Unemployed: No Education: Bachelor's Degree Difficulty w/ Childcare or Family Care: No Living arrangements: long-term Gender identity (if verbalized by the patient): Female Spiritual care concerns: No Meds Home Medications and Allergies Home Medications Medication Instructions Recorded Confirmed Type acetaminophen 325 mg capsule 325 mg PO Q4-5H PRN Pain 07/23/20 08/10/24 History albuterol sulfate 90 mcg/actuation 2 puff inhalation Q4-5H PRN 07/23/20 08/10/24 History aerosol inhaler Shortness Of Breath amlodipine 10 mg tablet 10 mg PO DAILY 07/23/20 08/10/24 History atorvastatin 10 mg tablet 10 mg PO HS 07/23/20 08/10/24 History carvedilol 25 mg tablet 25 mg PO BID 07/23/20 08/10/24 History lamotrigine 200 mg tablet 200 mg PO QPM 07/23/20 08/10/24 History mirtazapine 15 mg tablet 30 mg PO HS 07/23/20 08/10/24 History cranberry extract 300 mg tablet 300 mg PO BID 08/10/24 08/10/24 History lamotrigine 100 mg tablet 100 mg PO DAILY 08/10/24 08/10/24 History (Lamictal) risperidone 0.5 mg tablet 0.5 mg PO BID 08/10/24 08/10/24 History Allergies Allergy/AdvReac Type Severity Reaction Status Date / Time No Known Allergies Allergy Verified 05/02/21 15:10 Vital Signs Vital Signs - 24 hr 08/09/24 20:02 08/09/24 23:34 08/09/24 23:24 Temperature 97.3 F L Pulse Rate 71 85 66 Respiratory Rate 15 16 18 Blood Pressure 119/46 L 156/72 H Pulse Oximetry 94 98 Oxygen Delivery Room Air 08/09/24 23:31 08/10/24 00:58 08/10/24 01:46 Temperature Pulse Rate 64 77 69 Respiratory Rate 18 16 Blood Pressure 150/61 H 148/68 H Pulse Oximetry 97 93 Oxygen Delivery 08/10/24 02:46 08/10/24 03:01 08/10/24 03:07 Temperature Pulse Rate Respiratory Rate Blood Pressure 118/92 H 136/71 Pulse Oximetry 93 91 Oxygen Delivery 08/10/24 03:15 08/10/24 03:16 08/10/24 03:30 Temperature Pulse Rate Respiratory Rate Blood Pressure 146/62 H Pulse Oximetry 94 91 88 L Oxygen Delivery 08/10/24 03:31 08/10/24 04:01 08/10/24 04:16 Temperature Pulse Rate 61 Respiratory Rate 16 Blood Pressure 142/91 H 148/82 H 154/89 H Pulse Oximetry 89 L 91 Oxygen Delivery 08/10/24 04:31 08/10/24 04:46 08/10/24 04:58 Temperature Pulse Rate Respiratory Rate Blood Pressure 155/64 H 136/56 L Pulse Oximetry 90 Oxygen Delivery 08/10/24 05:31 08/10/24 05:47 08/10/24 06:16 Temperature Pulse Rate 65 67 Respiratory Rate 18 16 Blood Pressure 160/61 H 148/63 H Pulse Oximetry 90 91 92 Oxygen Delivery 08/10/24 06:45 08/10/24 06:46 08/10/24 07:00 Temperature Pulse Rate Respiratory Rate Blood Pressure 170/60 H Pulse Oximetry 91 91 91 Oxygen Delivery 08/10/24 07:15 08/10/24 09:04 Temperature Pulse Rate 68 88 Respiratory Rate 16 Blood Pressure 156/80 H Pulse Oximetry 91 Oxygen Delivery Exam Narrative: On exam she is tender to palpation toxic area she has pain with any manipulation. Neurologically she appears to be grossly intact. Radiology Reports: Comments: Patient: Judy Geronimo HISTORY: tailbone pain after fall COMPARISON: None TECHNIQUE: 3 views of the lower spine were performed. FINDINGS: No acute fracture of the distal coccyx with posterior displacement of fracture fragments. Significant fecal stasis within the rectum. No additional acute fractures are noted. IMPRESSION: Acute fracture the distal coccyx with posterior displacement of the fracture fragment Reviewed, dictated and finalized at location A. ECTIVE SERVICES CASE WORKER Sacrum and Coccyx X-Ray 08/09/24 Results Labs 08/10/24 09:23 08/09/24 20:17 Labs: Abnormal lab results 08/09/24 08/10/24 08/10/24 Range/Units 20:17 00:12 00:49 WBC 13.8 H (4.5-10.0) K/mm3 RBC (4.2-5.4) M/mm3 Hct (37.0-47.0) % Neut % (Auto) 85.4 H (45.5-73.1) % Lymph % (Auto) 6.4 L (18.3-44.2) % Mason % (Auto) (2.6-8.5) % Lymph # (Auto) 0.88 L (0.9-3.2) K/mm3 Mason # (Auto) 1.1 H (0.1-0.6) K/mm3 Abs Immat Gran (auto) 0.05 H (0.00-0.031) K/mm3 Absolute Neuts (auto) 11.8 H (1.3-6.7) K/mm3 D-Dimer 2.84 H (<0.48) ug/mL Sodium 135 L (137-145) mmol/L Glucose 148 H (65-110) mg/dL Total Bilirubin 1.6 H (0.2-1.3) mg/dL AST 69 H (14-36) U/L Total Creatine Kinase 6199 H (30-135) U/L NT-Pro-B Natriuret Pep 1330 H (19.9-100) pg/mL Urine Protein 1+ H (Negative) mg/dL Urine Ketones 1+ H (Negative) mg/dL 08/10/24 Range/Units 09:23 WBC 10.9 H (4.5-10.0) K/mm3 RBC 3.88 L (4.2-5.4) M/mm3 Hct 36.9 L (37.0-47.0) % Neut % (Auto) 78.5 H (45.5-73.1) % Lymph % (Auto) 11.7 L (18.3-44.2) % Mason % (Auto) 9.1 H (2.6-8.5) % Lymph # (Auto) (0.9-3.2) K/mm3 Mason # (Auto) 1.0 H (0.1-0.6) K/mm3 Abs Immat Gran (auto) 0.04 H (0.00-0.031) K/mm3 Absolute Neuts (auto) 8.6 H (1.3-6.7) K/mm3 D-Dimer (<0.48) ug/mL Sodium (137-145) mmol/L Glucose (65-110) mg/dL Total Bilirubin (0.2-1.3) mg/dL AST (14-36) U/L Total Creatine Kinase (30-135) U/L NT-Pro-B Natriuret Pep (19.9-100) pg/mL Urine Protein (Negative) mg/dL Urine Ketones (Negative) mg/dL H & H 08/09/24 08/10/24 Range/Units 20:17 09:23 Hgb 13.3 12.1 (12.0-15.0) g/dL Hct 39.8 36.9 L (37.0-47.0) % All other labs normal.
[2024-08-10 09:46] LABS: Alanine Aminotransferase 23 U/L (6-35); Albumin Level 3.6 g/dL (3.5-5.1); Alkaline Phosphatase 54 U/L (38-126); Anion Gap 10 mmol/L (4-12); Aspartate Amino Transferase 67 U/L (14-36); Bilirubin,Total 1.2 mg/dL (0.2-1.3); Blood Urea Nitrogen 12 mg/dL (7-17); Carbon Dioxide 20 mmol/L (22-30); Chloride 105 mmol/L (98-107); Estimated CRCL calculation 42 ml/min; Estimated Glomerular Filt Rate > 60; Glucose 90 mg/dL (65-110); Potassium 3.1 mmol/L (3.4-5.0); Sodium 135 mmol/L (137-145)
--- NOTE | 2024-08-10 10:07 | P.HP_ITS ---
H&P: HPI History of Present Illness Date/Time: 08/10/24 10:07 Chief Complaint: Weakness Narrative: Patient is an 89 year old female that has been experiencing weakness and fell at home. Patient is unsure if she hit her head. Patient reports that she also fell a week ago and sprang her left ankle and put herself in a boot. Patient reports that her left ankle is feeling better. Sacrum coccyx X-ray show ed an acute fracture the distal coccyx with posterior displacement of the fracture fragment. Patient reports that pain in coccyx is a 4 , sharp, and frequent. Head CT showed no acute intracranial hemorrhage of suspicious mass effect, prior cerebral infarction with right MCA distribution. Patient reports that she had a stroke at the age of 32 from control pills and that she has had numbness in her left side since stroke. Patient also has history of an aneurysm. D. Dimer 2.84. Chest CTA showed no evidence of pulmonary embolus, aortic dissection, or aortic aneurysm. [id number] emphysema. BNP 1330. CK 6199 in ER and has improved to 4328. Patient lives alone. RSV, Flu, and COVID negative. Patient reports a productive cough with white and figueroa sputum. Patient reports smoking 7 cigarettes a day for over 50 years. Patient lives alone but son is near by. Patient reports using a walker at times. Patient denies chest pain, palpitations, shortness of breath, headache, dizziness, or nausea. Review of Systems Review of Systems: All systems reviewed & are unremarkable except as noted in HPI and below PMFSH Past Medical History Medical History Anxiety Brain aneurysm CVA (cerebral vascular accident) Dementia Depression Hyperlipidemia Hypertension Subarachnoid bleed Surgical History Surgical History Gastrostomy tube in place Family History Family History Father Diabetes mellitus Social History Social History Social History: Resides at [facility]. The patient is listed as a DNR. Her son is listed as a durable power rubber attacher for healthcare. The patient is being listed as . She is retired. Only her son day but is listed is listed as contact. Years smoked: 60 Smoking status: Former smoker Alcohol intake: never Substance use: never Do You Feel Safe in your Home?: Yes Lack of Transportation: No Lack of Food: Never True Current Housing: I Have Housing Concerned About Future Housing: No Difficulty Paying Gas/Electric Bills: No Difficulty Paying for Meds: No Currently Unemployed: No Education: Bachelor's Degree Difficulty w/ Childcare or Family Care: No Living arrangements: usp Gender identity (if verbalized by the patient): Female Spiritual care concerns: No Meds Home Medications and Allergies Home Medications Medication Instructions Recorded Confirmed Type acetaminophen 325 mg capsule 325 mg PO Q4-5H PRN Pain 07/23/20 08/10/24 History albuterol sulfate 90 mcg/actuation 2 puff inhalation Q4-5H PRN 07/23/20 08/10/24 History aerosol inhaler Shortness Of Breath amlodipine 10 mg tablet 10 mg PO DAILY 07/23/20 08/10/24 History atorvastatin 10 mg tablet 10 mg PO HS 07/23/20 08/10/24 History carvedilol 25 mg tablet 25 mg PO BID 07/23/20 08/10/24 History lamotrigine 200 mg tablet 200 mg PO QPM 07/23/20 08/10/24 History mirtazapine 15 mg tablet 30 mg PO HS 07/23/20 08/10/24 History cranberry extract 300 mg tablet 300 mg PO BID 08/10/24 08/10/24 History lamotrigine 100 mg tablet 100 mg PO DAILY 08/10/24 08/10/24 History (Lamictal) risperidone 0.5 mg tablet 0.5 mg PO BID 08/10/24 08/10/24 History Allergies Allergy/AdvReac Type Severity Reaction Status Date / Time No Known Allergies Allergy Verified 05/02/21 15:10 Vital Signs Vital Signs - 24 hr 08/09/24 20:02 08/09/24 23:34 08/09/24 23:24 Temperature 97.3 F L Pulse Rate 71 85 66 Respiratory Rate 15 16 18 Blood Pressure 119/46 L 156/72 H Pulse Oximetry 94 98 Oxygen Delivery Room Air 08/09/24 23:31 08/10/24 00:58 08/10/24 01:46 Temperature Pulse Rate 64 77 69 Respiratory Rate 18 16 Blood Pressure 150/61 H 148/68 H Pulse Oximetry 97 93 Oxygen Delivery 08/10/24 02:46 08/10/24 03:01 08/10/24 03:07 Temperature Pulse Rate Respiratory Rate Blood Pressure 118/92 H 136/71 Pulse Oximetry 93 91 Oxygen Delivery 08/10/24 03:15 08/10/24 03:16 08/10/24 03:30 Temperature Pulse Rate Respiratory Rate Blood Pressure 146/62 H Pulse Oximetry 94 91 88 L Oxygen Delivery 08/10/24 03:31 08/10/24 04:01 08/10/24 04:16 Temperature Pulse Rate 61 Respiratory Rate 16 Blood Pressure 142/91 H 148/82 H 154/89 H Pulse Oximetry 89 L 91 Oxygen Delivery 08/10/24 04:31 08/10/24 04:46 08/10/24 04:58 Temperature Pulse Rate Respiratory Rate Blood Pressure 155/64 H 136/56 L Pulse Oximetry 90 Oxygen Delivery 08/10/24 05:31 08/10/24 05:47 08/10/24 06:16 Temperature Pulse Rate 65 67 Respiratory Rate 18 16 Blood Pressure 160/61 H 148/63 H Pulse Oximetry 90 91 92 Oxygen Delivery 08/10/24 06:45 08/10/24 06:46 08/10/24 07:00 Temperature Pulse Rate Respiratory Rate Blood Pressure 170/60 H Pulse Oximetry 91 91 91 Oxygen Delivery 08/10/24 07:15 08/10/24 09:04 Temperature Pulse Rate 68 88 Respiratory Rate 16 Blood Pressure 156/80 H Pulse Oximetry 91 Oxygen Delivery Exam Const: General: no acute distress and uncomfortable Eyes: Sclera: sclerae normal Neck: Neck: supple Resp: Effort & Inspection: normal respiratory effort Other: lungs slightly coarse throughout Cardio: Rate: regular rate Rhythm: regular rhythm GI: GI Palp: Yes Soft to palpation Auscultation: normal bowel sounds Skin: General skin exam: no rashes or lesions noted Neuro: Speech: normal speech Extrem: General: normal to inspection Other: Boot to left lower extremity Psych: Mental Status: mental status grossly normal Affect: normal affect H&P: Results Labs Labs: Short CBC 08/09/24 08/10/24 Range/Units 20:17 09:23 WBC 13.8 H 10.9 H (4.5-10.0) K/mm3 Hgb 13.3 12.1 (12.0-15.0) g/dL Hct 39.8 36.9 L (37.0-47.0) % Plt Count 282 236 (150-375) k/mm3 BMP 08/09/24 08/10/24 20:17 09:23 Sodium 135 L 135 L Potassium 3.5 3.1 L Chloride 104 105 Carbon Dioxide 23 20 L BUN 15 12 Creatinine 0.80 0.70 Glucose 148 H 90 Calcium 8.7 8.0 L Cardiac Enzymes 08/09/24 08/09/24 Range/Units 20:17 20:17 Total Creatine Kinase 6199 H Cancelled (30-135) U/L Troponin I < 0.012 (0.000-0.034) ng/mL Liver Function 08/09/24 08/10/24 Range/Units 20:17 09:23 Total Bilirubin 1.6 H 1.2 (0.2-1.3) mg/dL AST 69 H 67 H (14-36) U/L ALT 24 23 (6-35) U/L Alkaline Phosphatase 61 54 (38-126) U/L Albumin 4.3 3.6 (3.5-5.1) g/dL Urine 08/10/24 Range/Units 00:49 Urine Color Dark yellow (Yellow) Urine Appearance Clear (Clear) Urine pH 6.5 (5.0-9.0) Ur Specific [place] 1.020 (1.001-1.035) Urine Protein 1+ H (Negative) mg/dL Urine Glucose (UA) Negative (Negative) mg/dL Assessment and Plan Assessment and plan (1) Rhabdomyolysis: Code(s): M62.82 - Rhabdomyolysis Status: Acute Assessment and Plan: * LR @ 125 ml/hr. * CK improving from 6199 to 4328. * Monitor CK levels. (2) Fracture of coccyx: Qualifiers: Encounter type: initial encounter Code(s): S32.2XXA - Fracture of coccyx, initial encounter for closed fracture Status: Acute Assessment and Plan: * Orthopedic consult. * Acetaminophen 650 mg PO Q4 PRN. * PT/OT (3) Generalized weakness: Code(s): R53.1 - Weakness Status: Acute Assessment and Plan: * PT/OT * Hydrate (4) Falls: Code(s): R29.6 - Repeated falls Status: Acute Assessment and Plan: * PT/OT (5) Hypokalemia: Code(s): E87.6 - Hypokalemia Status: Acute Assessment and Plan: * Potassium 3.1. * Potassium Chloride 40 meq PO q4 x2. * Monitor levels. (6) Hypertension: Code(s): I10 - Essential (primary) hypertension Status: Chronic Assessment and Plan: * Blood pressure 156/80. * Continue home Amlodipine 10 mg PO daily and Carvedilol 25 mg PO BID. (7) Hyperlipidemia: Code(s): E78.5 - Hyperlipidemia, unspecified Status: Chronic Assessment and Plan: * continue Atorvastatin 10 mg PO QHS. Hospitalist MIPS Advance Care Plan I have confirmed that the patient's Advanced Care Plan is present, code status is documented, or surrogate decision maker is listed in patient medical record.: Yes Medication Reconciliation I have utilized all available resources to obtain, update and review the patients current medications (includes all prescriptions, OTC, herbals, cannabis, and nutritional supplements).: Yes
[2024-08-10] MEDS: POTASSIUM CHLORIDE 20 MEQ ER TABLET 40 MEQ PO ×2 (11:04→15:04)
[2024-08-10 11:24] LABS: Creatine Kinase 4328 U/L (30-135)
--- NOTE | 2024-08-10 13:19 | PC.NURSE ---
This patient, Judy Geronimo, was admitted to [facility] Surg Room 323-02. Patient/family oriented to hospital policies and general routines including ID bracelet, bed and alarms, visiting hours, pain management, procedures, bathroom and other care routines, personal items, smoking policy, room service/diet, and visiting hours. Information on how to activate the Rapid Response Team has been discussed. Patient/Family are encouraged to report perceived risks to care and to ask questions if they do not understand what they are told or what they should do.
--- NOTE | 2024-08-10 15:40 | PCPTNOTE ---
Attempted PT evaluation, Pt reports being too fatigued to participate in OOB activities and declined to participate at this time with therapy. Will follow.
--- NOTE | 2024-08-10 16:50 | PC.NURSE ---
This patient, Judy Geronimo, was admitted to [facility] Surg Room 323-02. Patient/family oriented to hospital policies and general routines including ID bracelet, bed and alarms, visiting hours, pain management, procedures, bathroom and other care routines, personal items, smoking policy, room service/diet, and visiting hours. Information on how to activate the Rapid Response Team has been discussed. Patient/Family are encouraged to report perceived risks to care and to ask questions if they do not understand what they are told or what they should do.
[2024-08-10] MEDS: lamoTRIgine 100 MG TABLET 200 MG PO (17:38)
[2024-08-10 17:47] LABS: Creatine Kinase 3186 U/L (30-135)
[2024-08-10] MEDS: MIRTAZAPINE 15 MG TABLET 30 MG PO (20:12)
[2024-08-10] MEDS: ATORVASTATIN 10 MG TABLET PO (20:12)
[2024-08-10] MEDS: MORPHINE SULFATE (*CRX) 2 MG/ML INJ IV PUSH (20:13)
[2024-08-11 06:00] VITALS: BP 146/59; PULSE 74; RESP 18; TEMP 36.5; O2SAT 93
[2024-08-11 07:44] LABS: Basophils Percent Auto 0.2 % (0.2-1.2); Hematocrit 37.1 % (37.0-47.0); Immature Granulocyte Absolute 0.04 K/mm3 (0.00-0.031); Immature Granulocyte Percent A 0.4 % (0-0.5); Lymphocytes Absolute Auto 1.15 K/mm3 (0.9-3.2); Lymphocytes Percent Auto 11.2 % (18.3-44.2); Mean Corpuscular HGB Conc 32.3 g/dl (32-36); Mean Corpuscular Hemoglobin 31.4 pg (26-34); Mean Corpuscular Volume 97.1 fl (80-100); Mean Platelet Volume 8.8 fl (7.4-10.4); Monocytes Absolute Auto 1.3 K/mm3 (0.1-0.6); Monocytes Percent Auto 12.3 % (2.6-8.5); Neutrophils Absolute Auto 7.8 K/mm3 (1.3-6.7); Neutrophils Percent Auto 75.9 % (45.5-73.1); Platelet Count Result 253 k/mm3 (150-375); Red Blood Count 3.82 M/mm3 (4.2-5.4); Red Cell Distribution Width 13.3 % (11.5-14.5); White Blood Count 10.3 K/mm3 (4.5-10.0)
[2024-08-11] MEDS: MORPHINE SULFATE (*CRX) 2 MG/ML INJ IV PUSH (07:47)
[2024-08-11 08:00] VITALS: PULSE 69; O2SAT 94
[2024-08-11] MEDS: guaiFENesin 12 HR 600 MG TABCR PO ×2 (08:41→20:22)
[2024-08-11 08:42] VITALS: PULSE 69
[2024-08-11] MEDS: risperiDONE 0.5 MG TABLET PO ×2 (08:42→20:22)
[2024-08-11] MEDS: carvediloL 25 MG TABLET PO ×2 (08:42→16:57)
[2024-08-11] MEDS: amLODIPine BESYLATE 10 MG TABLET PO (08:42)
[2024-08-11] MEDS: lamoTRIgine 100 MG TABLET PO (08:43)
[2024-08-11 08:49] LABS: Alanine Aminotransferase 23 U/L (6-35); Albumin Level 3.4 g/dL (3.5-5.1); Alkaline Phosphatase 60 U/L (38-126); Anion Gap 7 mmol/L (4-12); Aspartate Amino Transferase 59 U/L (14-36); Blood Urea Nitrogen 9 mg/dL (7-17); Calcium 8.3 mg/dL (8.4-10.2); Carbon Dioxide 21 mmol/L (22-30); Chloride 106 mmol/L (98-107); Creatine Kinase 2184 U/L (30-135); Estimated CRCL calculation 48 ml/min; Estimated Glomerular Filt Rate > 60; Glucose 79 mg/dL (65-110); Potassium 4.3 mmol/L (3.4-5.0); Sodium 134 mmol/L (137-145)
--- NOTE | 2024-08-11 09:11 | P.PNIM_ITS ---
Progress Note: A&P Assessment and Plan (1) Rhabdomyolysis: Code(s): M62.82 - Rhabdomyolysis Status: Acute Assessment and Plan: * improving * encourage oral hydration * CK on admission 6199. * Monitor CK levels. (2) Fracture of coccyx: Qualifiers: Encounter type: initial encounter Code(s): S32.2XXA - Fracture of coccyx, initial encounter for closed fracture Status: Acute Assessment and Plan: * Orthopedic consult recommendations for pain management and follow-up in 1 month * Acetaminophen 650 mg PO Q4 PRN. * PT/OT (3) Generalized weakness: Code(s): R53.1 - Weakness Status: Acute Assessment and Plan: * PT/OT * Hydrate (4) Falls: Code(s): R29.6 - Repeated falls Status: Acute Assessment and Plan: * PT/OT recommending SNF, Toradol and Robaxin added to see if that will help with better discharge recommendations of pain is better controlled * UA negative for UTI (5) Hypokalemia: Code(s): E87.6 - Hypokalemia Status: Acute Assessment and Plan: * Potassium 3.1. * Potassium Chloride 40 meq PO q4 x2. * Monitor levels. (6) Hypertension: Code(s): I10 - Essential (primary) hypertension Status: Chronic Assessment and Plan: * Blood pressure 156/80. * Continue home Amlodipine 10 mg PO daily and Carvedilol 25 mg PO BID. (7) Hyperlipidemia: Code(s): E78.5 - Hyperlipidemia, unspecified Status: Chronic Assessment and Plan: * continue Atorvastatin 10 mg PO QHS. Time Spent With Patient Time with patient: Greater than 35 minutes Subjective Date/time seen: 08/11/24 09:11 Interval history: 89 year old female that has been experiencing weakness and fell at home with fractured coccyx. patient appears to be uncomfortable bed, complaining of coughing making her stomach hurt. Due to patient's weakness and limited mobility is recommended that she goes to SNF Review of Systems Review of Systems: All systems reviewed & are unremarkable except as noted in HPI and below Exam Const: General: no acute distress and uncomfortable Eyes: Sclera: sclerae normal Neck: Neck: supple Resp: Effort & Inspection: normal respiratory effort Other: lungs slightly coarse throughout Cardio: Rate: regular rate Rhythm: regular rhythm GI: Auscultation: normal bowel sounds Skin: General skin exam: no rashes or lesions noted Neuro: Speech: normal speech Extrem: General: normal to inspection Psych: Mental Status: mental status grossly normal Affect: normal affect Objective Data Vital Signs Vital Signs: Vital Signs - 24 hr 08/10/24 10:23 08/10/24 10:32 08/10/24 14:00 Temperature 96.8 F L Pulse Rate 61 Respiratory Rate 20 Blood Pressure 122/42 L Pulse Oximetry 86 L 91 90 Oxygen Delivery Room Air Nasal Cannula Oxygen Flow Rate 2 08/10/24 15:05 08/10/24 21:13 08/11/24 06:00 Temperature 98.6 F 97.7 F Pulse Rate 89 67 74 Respiratory Rate 22 H 18 Blood Pressure 130/46 L 146/59 H Pulse Oximetry 94 93 Oxygen Delivery Oxygen Flow Rate 08/11/24 07:39 08/11/24 08:42 Temperature Pulse Rate 69 Respiratory Rate Blood Pressure Pulse Oximetry Oxygen Delivery Nasal Cannula Oxygen Flow Rate 2 Intake/Output Intake/Output: Intake & Output 08/08/24 08/09/24 08/10/24 08/11/24 23:59 23:59 23:59 23:59 Intake Total 2200 238 Output Total 250 300 Balance 1950 - Meds/Results Medications: Active Medications Generic Name Dose Route Start Last Admin Trade Name Freq PRN Reason Stop Dose Admin Acetaminophen 650 mg 08/10/24 06:02 Acetaminophen 325 Mg Tablet PO Q4H PRN Fever Acetaminophen 325 mg 08/10/24 08:43 Acetaminophen 325 Mg Tablet PO Q4H PRN Pain 1-3 Hydrocodone Bitart/Acetaminophen 1 tab 08/10/24 19:51 08/10/24 20:12 Hydrocodone/Acetaminophen (*Crx) 5-325 Mg Tablet PO 1 tab Q4H PRN Administration Pain Rated 4-6 Albuterol 2 puff 08/10/24 08:43 Albuterol Sulfate (*Sp) Aerosol 1 Puff INHALATION Q4HRT PRN Shortness Of Breath Albuterol/Ipratropium 3 ml 08/10/24 13:46 Ipratropium 0.5 Mg/Albuterol Sulfate 2.5 Mg Ampul.Neb 3 Ml INHALATION Q6HRT PRN Shortness Of Breath Or Wheezing Amlodipine Besylate 10 mg 08/10/24 09:00 08/11/24 08:42 Amlodipine Besylate 10 Mg Tablet PO 10 mg DAILY JANEEN Administration Atorvastatin Calcium 10 mg 08/10/24 21:00 08/10/24 20:12 Atorvastatin 10 Mg Tablet PO 10 mg HS JANEEN Administration Carvedilol 25 mg 08/10/24 08:00 08/11/24 08:42 Carvedilol 25 Mg Tablet PO 25 mg BIDWM JANEEN Administration Docusate Sodium 100 mg 08/10/24 08:45 Docusate Sodium 100 Mg Capsule PO Q12H PRN Constipation Guaifenesin 600 mg 08/10/24 09:00 08/11/24 08:41 Guaifenesin 12 Hr 600 Mg Tabcr PO 08/17/24 08:59 600 mg Q12HR JANEEN Administration Lactated Ringer's 1,000 mls @ 125 mls/hr 08/10/24 06:05 08/10/24 15:07 Lr - Lactated Ringers Iv IV CONT 125 mls/hr .Q8H JANEEN Administration Lamotrigine 100 mg 08/10/24 09:00 08/11/24 08:43 Lamotrigine 100 Mg Tablet PO 100 mg DAILY JANEEN Administration Lamotrigine 200 mg 08/10/24 18:00 08/10/24 17:38 Lamotrigine 100 Mg Tablet PO 200 mg QPM JANEEN Administration Mirtazapine 30 mg 08/10/24 21:00 08/10/24 20:12 Mirtazapine 15 Mg Tablet PO 30 mg HS JANEEN Administration Morphine Sulfate 2 mg 08/10/24 19:51 08/11/24 07:47 Morphine Sulfate (*Crx) 2 Mg/Ml Inj IV PUSH 2 mg Q4H PRN Administration Pain Rated 7-10 Ondansetron HCl 4 mg 08/10/24 06:02 Ondansetron Inj 4 Mg/2 Ml Vial IV PUSH Q4H PRN Nausea Risperidone 0.5 mg 08/10/24 09:00 08/11/24 08:42 Risperidone 0.5 Mg Tablet PO 0.5 mg Q12HR JANEEN Administration Radiology Results: ITS Impressions Chest X-Ray 08/09/24 20:46 IMPRESSION: No focal infiltrate or effusion. Sacrum and Coccyx X-Ray 08/09/24 23:49 IMPRESSION: Acute fracture the distal coccyx with posterior displacement of the fracture fragment Head CT 08/09/24 23:53 Impression: No acute intracranial hemorrhage or suspicious mass effect. 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 Chest CTA 08/10/24 06:19 Impression: No evidence of pulmonary embolus, aortic dissection, or aortic aneurysm. [id number] emphysema. Labs Labs: Laboratory Results - last 24 hr 08/10/24 08/10/24 08/10/24 09:23 10:25 15:56 WBC 10.9 H RBC 3.88 L Hgb 12.1 Hct 36.9 L MCV 95.1 MCH 31.2 MCHC 32.8 RDW 13.4 Plt Count 236 MPV 8.5 Immature Gran % (Auto) 0.4 Neut % (Auto) 78.5 H Lymph % (Auto) 11.7 L [place] % (Auto) 9.1 H Eos % (Auto) 0.1 Baso % (Auto) 0.2 Lymph # (Auto) 1.28 [place] # (Auto) 1.0 H Eos # (Auto) 0.0 Baso # (Auto) 0.0 Abs Immat Gran (auto) 0.04 H Absolute Neuts (auto) 8.6 H Absolute Nucleated RBC 0.000 Nucleated RBC % 0.0 Sodium 135 L Potassium 3.1 L Chloride 105 Carbon Dioxide 20 L Anion Gap 10 BUN 12 Creatinine 0.70 Estim Creat Clear Calc 42 Estimated GFR > 60 Glucose 90 Calcium 8.0 L Magnesium 2.0 Total Bilirubin 1.2 AST 67 H ALT 23 Alkaline Phosphatase 54 Total Creatine Kinase 4328 H 3186 H Total Protein 6.0 L Albumin 3.6 08/11/24 07:03 WBC 10.3 H RBC 3.82 L Hgb 12.0 Hct 37.1 MCV 97.1 MCH 31.4 MCHC 32.3 RDW 13.3 Plt Count 253 MPV 8.8 Immature Gran % (Auto) 0.4 Neut % (Auto) 75.9 H Lymph % (Auto) 11.2 L [place] % (Auto) 12.3 H Eos % (Auto) 0.0 Baso % (Auto) 0.2 Lymph # (Auto) 1.15 [place] # (Auto) 1.3 H Eos # (Auto) 0.0 Baso # (Auto) 0.0 Abs Immat Gran (auto) 0.04 H Absolute Neuts (auto) 7.8 H Absolute Nucleated RBC 0.000 Nucleated RBC % 0.0 Sodium 134 L Potassium 4.3 Chloride 106 Carbon Dioxide 21 L Anion Gap 7 BUN 9 Creatinine 0.60 L Estim Creat Clear Calc 48 Estimated GFR > 60 Glucose 79 Calcium 8.3 L Magnesium Total Bilirubin 1.0 AST 59 H ALT 23 Alkaline Phosphatase 60 Total Creatine Kinase 2184 H Total Protein 6.0 L Albumin 3.4 L Quality VTE Prophylaxis VTE prophylaxis: mechanical ordered and pharmacologic ordered Hospitalist MIPS Advance Care Plan I have confirmed that the patient's Advanced Care Plan is present, code status is documented, or surrogate decision maker is listed in patient medical record.: Yes Medication Reconciliation I have utilized all available resources to obtain, update and review the patients current medications (includes all prescriptions, OTC, herbals, cannabis, and nutritional supplements).: Yes
[2024-08-11] MEDS: HYDROcodone/acetaminophen (*CRX) 5-325 MG TABLET 1 TAB PO (12:25)
[2024-08-11 14:00] VITALS: BP 114/47; PULSE 66; RESP 18; TEMP 36.6; O2SAT 98
[2024-08-11] MEDS: KETOROLAC 15 MG/ML VIAL (*BKC) IV PUSH ×2 (15:47→20:23)
[2024-08-11] MEDS: SODIUM CHLORIDE 0.9% IV 1,000 ML 999 ML IV CONT (15:48)
[2024-08-11] MEDS: BENZONATATE 100 MG CAPSULE PO (16:56)
[2024-08-11 16:57] VITALS: PULSE 60
[2024-08-11] MEDS: methocarbamoL 500 MG TABLET PO ×2 (16:57→20:22)
[2024-08-11] MEDS: lamoTRIgine 100 MG TABLET 200 MG PO (16:59)
[2024-08-11] MEDS: ATORVASTATIN 10 MG TABLET PO (20:22)
[2024-08-11] MEDS: MIRTAZAPINE 15 MG TABLET 30 MG PO (20:22)
[2024-08-11] MEDS: LACTATED RINGERS 1,000 ML 125 ML IV CONT (20:24)
[2024-08-11 20:36] VITALS: BP 119/47; PULSE 61; RESP 20; TEMP 36.2; O2SAT 96
[2024-08-12] VITALS (7 sets, daily range): BP systolic 116–134; BP diastolic 50–98; PULSE 67–75; RESP 16–20; TEMP 36.5–36.7; O2SAT 75–98
[2024-08-12] MEDS: KETOROLAC 15 MG/ML VIAL (*BKC) IV PUSH ×4 (02:55→20:27)
[2024-08-12 07:02] LABS: Basophils Percent Auto 0.2 % (0.2-1.2); Hematocrit 33.3 % (37.0-47.0); Hemoglobin 10.9 g/dL (12.0-15.0); Immature Granulocyte Absolute 0.03 K/mm3 (0.00-0.031); Immature Granulocyte Percent A 0.4 % (0-0.5); Lymphocytes Absolute Auto 1.24 K/mm3 (0.9-3.2); Lymphocytes Percent Auto 15.1 % (18.3-44.2); Mean Corpuscular HGB Conc 32.7 g/dl (32-36); Mean Corpuscular Hemoglobin 30.9 pg (26-34); Mean Corpuscular Volume 94.3 fl (80-100); Mean Platelet Volume 8.9 fl (7.4-10.4); Monocytes Absolute Auto 1.2 K/mm3 (0.1-0.6); Neutrophils Absolute Auto 5.8 K/mm3 (1.3-6.7); Neutrophils Percent Auto 70.3 % (45.5-73.1); Platelet Count Result 239 k/mm3 (150-375); Red Blood Count 3.53 M/mm3 (4.2-5.4); Red Cell Distribution Width 13.1 % (11.5-14.5); White Blood Count 8.2 K/mm3 (4.5-10.0)
[2024-08-12 07:13] LABS: Alanine Aminotransferase 23 U/L (6-35); Albumin Level 3.2 g/dL (3.5-5.1); Alkaline Phosphatase 55 U/L (38-126); Anion Gap 5 mmol/L (4-12); Aspartate Amino Transferase 40 U/L (14-36); Bilirubin,Total 0.7 mg/dL (0.2-1.3); Blood Urea Nitrogen 11 mg/dL (7-17); Calcium 8.2 mg/dL (8.4-10.2); Carbon Dioxide 26 mmol/L (22-30); Chloride 104 mmol/L (98-107); Creatine Kinase 806 U/L (30-135); Estimated CRCL calculation 42 ml/min; Estimated Glomerular Filt Rate > 60; Glucose 108 mg/dL (65-110); Potassium 3.9 mmol/L (3.4-5.0); Sodium 135 mmol/L (137-145)
[2024-08-12] MEDS: ENOXAPARIN 40 MG/0.4 ML SYRINGE SUB-Q (09:00)
[2024-08-12] MEDS: methocarbamoL 500 MG TABLET PO (09:00)
[2024-08-12] MEDS: amLODIPine BESYLATE 10 MG TABLET PO (09:00)
[2024-08-12] MEDS: carvediloL 25 MG TABLET PO ×2 (09:00→17:19)
[2024-08-12] MEDS: risperiDONE 0.5 MG TABLET PO ×2 (09:01→20:28)
[2024-08-12] MEDS: guaiFENesin 12 HR 600 MG TABCR PO ×2 (09:01→20:28)
[2024-08-12] MEDS: BENZONATATE 100 MG CAPSULE PO ×3 (09:01→17:19)
[2024-08-12] MEDS: lamoTRIgine 100 MG TABLET PO (09:02)
--- NOTE | 2024-08-12 09:15 | P.PNIM_ITS ---
Progress Note: A&P Assessment and Plan (1) Rhabdomyolysis: Code(s): M62.82 - Rhabdomyolysis Status: Acute Assessment and Plan: * improving * encourage oral hydration * CK on admission 6199. * Monitor CK levels. (2) Fracture of coccyx: Qualifiers: Encounter type: initial encounter Code(s): S32.2XXA - Fracture of coccyx, initial encounter for closed fracture Status: Acute Assessment and Plan: * Orthopedic consult recommendations for pain management and follow-up in 1 month * Acetaminophen 650 mg PO Q4 PRN. * PT/OT (3) Generalized weakness: Code(s): R53.1 - Weakness Status: Acute Assessment and Plan: * PT/OT * Hydrate (4) Falls: Code(s): R29.6 - Repeated falls Status: Acute Assessment and Plan: * PT/OT recommending SNF, Toradol and Robaxin added to see if that will help with better discharge recommendations of pain is better controlled * UA negative for UTI (5) Hypokalemia: Code(s): E87.6 - Hypokalemia Status: Acute Assessment and Plan: * replete as needed * Monitor levels. (6) Hypertension: Code(s): I10 - Essential (primary) hypertension Status: Chronic Assessment and Plan: * Blood pressure 156/80. * Continue home Amlodipine 10 mg PO daily and Carvedilol 25 mg PO BID. (7) Hyperlipidemia: Code(s): E78.5 - Hyperlipidemia, unspecified Status: Chronic Assessment and Plan: * continue Atorvastatin 10 mg PO QHS. Time Spent With Patient Time with patient: Greater than 35 minutes Subjective Date/time seen: 08/12/24 09:15 Interval history: 89 year old female that has been experiencing weakness and fell at home with fractured coccyx. patient appears to be uncomfortable bed, complaining of coughing making her sto mach hurt. Due to patient's weakness and limited mobility is recommended that she goes to SNF the patient's CKs under 1000 this morning, patient has probable recurrent PT and OT due to pain, pain meds adjusted will likely discharge tomorrow Review of Systems Review of Systems: All systems reviewed & are unremarkable except as noted in HPI and below Exam Const: General: no acute distress and uncomfortable Eyes: Sclera: sclerae normal Neck: Neck: supple Resp: Effort & Inspection: normal respiratory effort Other: lungs slightly coarse throughout Cardio: Rate: regular rate Rhythm: regular rhythm GI: Auscultation: normal bowel sounds Skin: General skin exam: no rashes or lesions noted Neuro: Speech: normal speech Extrem: General: normal to inspection Other: Boot to left lower extremity Psych: Mental Status: mental status grossly normal Affect: normal affect Objective Data Vital Signs Vital Signs: Vital Signs - 24 hr 08/11/24 14:00 08/11/24 16:57 08/11/24 20:36 Temperature 97.8 F 97.2 F L Pulse Rate 66 60 61 Respiratory Rate 18 20 Blood Pressure 114/47 L 119/47 L Pulse Oximetry 98 96 08/12/24 05:09 08/12/24 08:57 08/12/24 09:00 Temperature 97.7 F Pulse Rate 71 74 75 Respiratory Rate 20 16 Blood Pressure 119/52 L 134/98 H Pulse Oximetry 98 75 L Intake/Output Intake/Output: Intake & Output 08/09/24 08/10/24 08/11/24 08/12/24 23:59 23:59 23:59 23:59 Intake Total 3200 718 350 Output Total 250 400 450 Balance 2950 318 -100 Meds/Results Medications: Active Medications Generic Name Dose Route Start Last Admin Trade Name Freq PRN Reason Stop Dose Admin Acetaminophen 650 mg 08/10/24 06:02 Acetaminophen 325 Mg Tablet PO Q4H PRN Fever Acetaminophen 325 mg 08/10/24 08:43 Acetaminophen 325 Mg Tablet PO Q4H PRN Pain 1-3 Hydrocodone Bitart/Acetaminophen 1 tab 08/10/24 19:51 08/11/24 12:25 Hydrocodone/Acetaminophen (*Crx) 5-325 Mg Tablet PO 1 tab Q4H PRN Administration Pain Rated 4-6 Albuterol 2 puff 08/10/24 08:43 Albuterol Sulfate (*Sp) Aerosol 1 Puff INHALATION Q4HRT PRN Shortness Of Breath Albuterol/Ipratropium 3 ml 08/10/24 13:46 Ipratropium 0.5 Mg/Albuterol Sulfate 2.5 Mg Ampul.Neb 3 Ml INHALATION Q6HRT PRN Shortness Of Breath Or Wheezing Amlodipine Besylate 10 mg 08/10/24 09:00 08/12/24 09:00 Amlodipine Besylate 10 Mg Tablet PO 10 mg DAILY JANEEN Administration Atorvastatin Calcium 10 mg 08/10/24 21:00 08/11/24 20:22 Atorvastatin 10 Mg Tablet PO 10 mg HS JANEEN Administration Benzonatate 100 mg 08/11/24 17:00 08/12/24 09:01 Benzonatate 100 Mg Capsule PO 100 mg TID JANEEN Administration Carvedilol 25 mg 08/10/24 08:00 08/12/24 09:00 Carvedilol 25 Mg Tablet PO 25 mg BIDWM JANEEN Administration Docusate Sodium 100 mg 08/10/24 08:45 Docusate Sodium 100 Mg Capsule PO Q12H PRN Constipation Enoxaparin Sodium 40 mg 08/12/24 09:00 08/12/24 09:00 Enoxaparin 40 Mg/0.4 Ml Syringe SUB-Q 40 mg DAILY JANEEN Administration Guaifenesin 600 mg 08/10/24 09:00 08/12/24 09:01 Guaifenesin 12 Hr 600 Mg Tabcr PO 08/17/24 08:59 600 mg Q12HR JANEEN Administration Lactated Ringer's 1,000 mls @ 125 mls/hr 08/10/24 06:05 08/11/24 20:24 Lr - Lactated Ringers Iv IV CONT 125 mls/hr .Q8H JANEEN Administration Ketorolac Tromethamine 15 mg 08/11/24 14:00 08/12/24 09:02 Ketorolac 15 Mg/Ml Vial (*Bkc) IV PUSH 08/13/24 20:01 15 mg Q6H JANEEN Administration Lamotrigine 100 mg 08/10/24 09:00 08/12/24 09:02 Lamotrigine 100 Mg Tablet PO 100 mg DAILY JANEEN Administration Lamotrigine 200 mg 08/10/24 18:00 08/11/24 16:59 Lamotrigine 100 Mg Tablet PO 200 mg QPM JANEEN Administration Methocarbamol 500 mg 08/11/24 17:00 08/12/24 09:00 Methocarbamol 500 Mg Tablet PO 500 mg QID JANEEN Administration Mirtazapine 30 mg 08/10/24 21:00 08/11/24 20:22 Mirtazapine 15 Mg Tablet PO 30 mg HS JANEEN Administration Morphine Sulfate 2 mg 08/10/24 19:51 08/11/24 07:47 Morphine Sulfate (*Crx) 2 Mg/Ml Inj IV PUSH 2 mg Q4H PRN Administration Pain Rated 7-10 Ondansetron HCl 4 mg 08/10/24 06:02 Ondansetron Inj 4 Mg/2 Ml Vial IV PUSH Q4H PRN Nausea Risperidone 0.5 mg 08/10/24 09:00 08/12/24 09:01 Risperidone 0.5 Mg Tablet PO 0.5 mg Q12HR JANEEN Administration Radiology Results: ITS Impressions Sacrum and Coccyx X-Ray 08/09/24 23:49 IMPRESSION: Acute fracture the distal coccyx with posterior displacement of the fracture fragment Head CT 08/09/24 23:53 Impression: No acute intracranial hemorrhage or suspicious mass effect. 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 Chest CTA 08/10/24 06:19 Impression: No evidence of pulmonary embolus, aortic dissection, or aortic aneurysm. [id number] emphysema. Chest X-Ray 08/12/24 06:02 Impression: Central venous congestive change and probable minimal interstitial edema. Labs Labs: Laboratory Results - last 24 hr 08/12/24 06:33 WBC 8.2 RBC 3.53 L Hgb 10.9 L Hct 33.3 L MCV 94.3 MCH 30.9 MCHC 32.7 RDW 13.1 Plt Count 239 MPV 8.9 Immature Gran % (Auto) 0.4 Neut % (Auto) 70.3 Lymph % (Auto) 15.1 L [place] % (Auto) 14.0 H Eos % (Auto) 0.0 Baso % (Auto) 0.2 Lymph # (Auto) 1.24 [place] # (Auto) 1.2 H Eos # (Auto) 0.0 Baso # (Auto) 0.0 Abs Immat Gran (auto) 0.03 Absolute Neuts (auto) 5.8 Absolute Nucleated RBC 0.000 Nucleated RBC % 0.0 Sodium 135 L Potassium 3.9 Chloride 104 Carbon Dioxide 26 Anion Gap 5 BUN 11 Creatinine 0.70 Estim Creat Clear Calc 42 Estimated GFR > 60 Glucose 108 Calcium 8.2 L Total Bilirubin 0.7 AST 40 H ALT 23 Alkaline Phosphatase 55 Total Creatine Kinase 806 H Total Protein 6.0 L Albumin 3.2 L Quality VTE Prophylaxis VTE prophylaxis: mechanical ordered and pharmacologic ordered
[2024-08-12] MEDS: GABAPENTIN 100 MG CAPSULE PO ×2 (13:26→17:20)
[2024-08-12] MEDS: methocarbamoL 750 MG TABLET PO ×3 (13:26→20:28)
--- NOTE | 2024-08-12 13:35 | PCPTNOTE ---
Patient declined PT this afternoon stating she was too tired and wiped out to do anything this afternoon. Patient states she understands the importance of doing PT but can not do it this afternoon. Educated patient on participating to improve strength and mobility. Patient continued to decline PT.
[2024-08-12] MEDS: lamoTRIgine 100 MG TABLET 200 MG PO (17:20)
[2024-08-12] MEDS: ATORVASTATIN 10 MG TABLET PO (20:28)
[2024-08-12] MEDS: MIRTAZAPINE 15 MG TABLET 30 MG PO (20:28)
[2024-08-13] MEDS: KETOROLAC 15 MG/ML VIAL (*BKC) IV PUSH ×3 (01:57→20:27)
[2024-08-13 06:00] VITALS: BP 100/88; PULSE 78; RESP 22; TEMP 36.4; O2SAT 93
[2024-08-13 06:51] LABS: Basophils Percent Auto 0.3 % (0.2-1.2); Hematocrit 36.2 % (37.0-47.0); Hemoglobin 11.8 g/dL (12.0-15.0); Immature Granulocyte Absolute 0.01 K/mm3 (0.00-0.031); Immature Granulocyte Percent A 0.2 % (0-0.5); Lymphocytes Absolute Auto 1.49 K/mm3 (0.9-3.2); Lymphocytes Percent Auto 22.9 % (18.3-44.2); Mean Corpuscular HGB Conc 32.6 g/dl (32-36); Mean Corpuscular Hemoglobin 31.1 pg (26-34); Mean Corpuscular Volume 95.3 fl (80-100); Monocytes Absolute Auto 0.9 K/mm3 (0.1-0.6); Monocytes Percent Auto 14.1 % (2.6-8.5); Neutrophils Absolute Auto 4.1 K/mm3 (1.3-6.7); Neutrophils Percent Auto 62.5 % (45.5-73.1); Platelet Count Result 259 k/mm3 (150-375); Red Cell Distribution Width 13.2 % (11.5-14.5); White Blood Count 6.5 K/mm3 (4.5-10.0)
[2024-08-13 07:03] LABS: Alanine Aminotransferase 23 U/L (6-35); Albumin Level 3.7 g/dL (3.5-5.1); Alkaline Phosphatase 58 U/L (38-126); Anion Gap 8 mmol/L (4-12); Aspartate Amino Transferase 36 U/L (14-36); Bilirubin,Total 0.5 mg/dL (0.2-1.3); Blood Urea Nitrogen 8 mg/dL (7-17); Calcium 8.8 mg/dL (8.4-10.2); Carbon Dioxide 27 mmol/L (22-30); Chloride 105 mmol/L (98-107); Estimated CRCL calculation 48 ml/min; Estimated Glomerular Filt Rate > 60; Glucose 101 mg/dL (65-110); Potassium 3.6 mmol/L (3.4-5.0); Sodium 140 mmol/L (137-145)
[2024-08-13 07:13] LABS: Creatine Kinase 502 U/L (30-135)
[2024-08-13 10:29] VITALS: O2SAT 94
--- NOTE | 2024-08-13 10:45 | PC.NURSE ---
Addendum entered by Corazon Marrero RN 08/13/24 15:01: pt asleep until 1030 this AM, delayed medication admin. Original Note: pt asleep until 1030 this AM
[2024-08-13] MEDS: risperiDONE 0.5 MG TABLET PO ×2 (11:10→20:28)
[2024-08-13] MEDS: amLODIPine BESYLATE 10 MG TABLET PO (11:10)
[2024-08-13] MEDS: BENZONATATE 100 MG CAPSULE PO ×2 (11:10→17:16)
[2024-08-13] MEDS: carvediloL 25 MG TABLET PO ×2 (11:10→17:16)
[2024-08-13] MEDS: methocarbamoL 750 MG TABLET PO ×3 (11:11→20:28)
[2024-08-13] MEDS: ENOXAPARIN 40 MG/0.4 ML SYRINGE SUB-Q (11:11)
[2024-08-13] MEDS: GABAPENTIN 100 MG CAPSULE PO ×2 (11:11→17:16)
[2024-08-13] MEDS: guaiFENesin 12 HR 600 MG TABCR PO ×2 (11:11→20:28)
[2024-08-13] MEDS: lamoTRIgine 100 MG TABLET PO (11:11)
[2024-08-13 14:00] VITALS: BP 114/49; PULSE 64; RESP 20; TEMP 36.2; O2SAT 97
--- NOTE | 2024-08-13 14:01 | PC.NURSE ---
Care assumed approximately 1200 as RN went to the ED.
[2024-08-13 17:16] VITALS: PULSE 74
[2024-08-13] MEDS: lamoTRIgine 100 MG TABLET 200 MG PO (17:17)
--- NOTE | 2024-08-13 18:45 | P.PNIM_ITS ---
Progress Note: A&P Assessment and Plan (1) Rhabdomyolysis: Code(s): M62.82 - Rhabdomyolysis Status: Acute Assessment and Plan: * Possibly secondary to prolonged time on the floor post fall. * improving. * encourage oral hydration. * Continue to monitor CK levels. (2) Fracture of coccyx: Qualifiers: Encounter type: initial encounter Code(s): S32.2XXA - Fracture of coccyx, initial encounter for closed fracture Status: Acute Assessment and Plan: * Orthopedic consulted. * Conservative mgt with pain meds PRN recommended for now. * Follow-up with ortho in 1 month * PT/OT * SNF placement. (3) Generalized weakness: Code(s): R53.1 - Weakness Status: Acute Assessment and Plan: * PT/OT eval and treatment. * SF placement for conditioning. * Fall precautions. * Assist with care. (4) Falls: Code(s): R29.6 - Repeated falls Status: Acute Assessment and Plan: * Mgt as # 3 above. * UA negative for UTI (5) Hypokalemia: Code(s): E87.6 - Hypokalemia Status: Acute Assessment and Plan: * replete as needed * Monitor levels. (6) Hypertension: Code(s): I10 - Essential (primary) hypertension Status: Chronic Assessment and Plan: * Blood pressure fairly well controlled. * Continue home Amlodipine 10 mg PO daily and Carvedilol 25 mg PO BID. (7) Hyperlipidemia: Code(s): E78.5 - Hyperlipidemia, unspecified Status: Chronic Assessment and Plan: * continue Atorvastatin 10 mg PO QHS. Plan Discharge to SNF when accepted. Continue PT/OT treatment and pain mgt. Time Spent With Patient Time with patient: 25 - 35 minutes Subjective Date/time seen: 08/13/24 18:45 Patient on bedrest and states she feels alright. States she has pain to her sacral region but it's tolerable, 4/10 for now. States currently sleepy but will get up with PT later when she gets up. Interval history: Patient calm on bedrest and looks to be in no acute distress. Review of Systems Review of Systems: All systems reviewed & are unremarkable except as noted in HPI and below Exam Narrative: General: Generalized muscle weakness but no acute distress. HEENT: Atraumatic, PERRL, EOM, anicteric, moist mucus membranes. NECK: Supple. Lungs: Faint crackles to bases. Heart: RRR, no murmurs. Abdomen: Soft, non-tender, non-distended, +ve bowel sounds X4 quadrants. Extremities: No edema. 2+ pedal edema. Skin: Warm and dry with no lesions. Neuro: Fairly well oriented. No focal neuro deficits noted. Psych: Co-operative and appropriate. Objective Data Vital Signs Vital Signs: Vital Signs - 24 hr 08/12/24 20:39 08/13/24 06:00 08/13/24 10:29 Temperature 98.0 F 97.6 F Pulse Rate 67 78 Respiratory Rate 20 22 H Blood Pressure 131/54 L 100/88 Pulse Oximetry 95 93 94 Oxygen Delivery Nasal Cannula Oxygen Flow Rate 2 Fraction of Inspired Oxygen 28 08/13/24 14:00 08/13/24 17:16 Temperature 97.2 F L Pulse Rate 64 74 Respiratory Rate 20 Blood Pressure 114/49 L Pulse Oximetry 97 Oxygen Delivery Oxygen Flow Rate Fraction of Inspired Oxygen Intake/Output Intake/Output: Intake & Output 08/10/24 08/11/24 08/12/24 08/13/24 23:59 23:59 23:59 23:59 Intake Total 3200 919 540 8781 Output Total 085 784 1277 1350 Balance 2950 358 -027 -340 Meds/Results Medications: Active Medications Generic Name Dose Route Start Last Admin Trade Name Freq PRN Reason Stop Dose Admin Acetaminophen 650 mg 08/10/24 06:02 Acetaminophen 325 Mg Tablet PO Q4H PRN Fever Acetaminophen 325 mg 08/10/24 08:43 Acetaminophen 325 Mg Tablet PO Q4H PRN Pain 1-3 Hydrocodone Bitart/Acetaminophen 1 tab 08/10/24 19:51 08/11/24 12:25 Hydrocodone/Acetaminophen (*Crx) 5-325 Mg Tablet PO 1 tab Q4H PRN Administration Pain Rated 4-6 Albuterol 2 puff 08/10/24 08:43 Albuterol Sulfate (*Sp) Aerosol 1 Puff INHALATION Q4HRT PRN Shortness Of Breath Albuterol/Ipratropium 3 ml 08/10/24 13:46 Ipratropium 0.5 Mg/Albuterol Sulfate 2.5 Mg Ampul.Neb 3 Ml INHALATION Q6HRT PRN Shortness Of Breath Or Wheezing Amlodipine Besylate 10 mg 08/10/24 09:00 08/13/24 11:10 Amlodipine Besylate 10 Mg Tablet PO 10 mg DAILY JANEEN Administration Atorvastatin Calcium 10 mg 08/10/24 21:00 08/12/24 20:28 Atorvastatin 10 Mg Tablet PO 10 mg HS JANEEN Administration Benzonatate 100 mg 08/11/24 17:00 08/13/24 17:16 Benzonatate 100 Mg Capsule PO 100 mg TID JANEEN Administration Carvedilol 25 mg 08/10/24 08:00 08/13/24 17:16 Carvedilol 25 Mg Tablet PO 25 mg BIDWM JANEEN Administration Docusate Sodium 100 mg 08/10/24 08:45 Docusate Sodium 100 Mg Capsule PO Q12H PRN Constipation Enoxaparin Sodium 40 mg 08/12/24 09:00 08/13/24 11:11 Enoxaparin 40 Mg/0.4 Ml Syringe SUB-Q 40 mg DAILY JANEEN Administration Gabapentin 100 mg 08/12/24 13:00 08/13/24 17:16 Gabapentin 100 Mg Capsule PO 100 mg TID [facility] Administration Guaifenesin 600 mg 08/10/24 09:00 08/13/24 11:11 Guaifenesin 12 Hr 600 Mg Tabcr PO 08/17/24 08:59 600 mg Q12HR JANEEN Administration Ketorolac Tromethamine 15 mg 08/11/24 14:00 08/13/24 15:03 Ketorolac 15 Mg/Ml Vial (*Bkc) IV PUSH 08/13/24 20:01 Not Given Q6H [facility] Lamotrigine 100 mg 08/10/24 09:00 08/13/24 11:11 Lamotrigine 100 Mg Tablet PO 100 mg DAILY [facility] Administration Lamotrigine 200 mg 08/10/24 18:00 08/13/24 17:17 Lamotrigine 100 Mg Tablet PO 200 mg QPM [facility] Administration Lidocaine 1 patch 08/13/24 09:00 08/13/24 15:02 Lidocaine 5% Patch TRANSDERM Not Given DAILY [facility] Methocarbamol 750 mg 08/12/24 13:00 08/13/24 17:16 Methocarbamol 750 Mg Tablet PO 750 mg QID JANEEN Administration Mirtazapine 30 mg 08/10/24 21:00 08/12/24 20:28 Mirtazapine 15 Mg Tablet PO 30 mg HS JANEEN Administration Ondansetron HCl 4 mg 08/10/24 06:02 Ondansetron Inj 4 Mg/2 Ml Vial IV PUSH Q4H PRN Nausea Risperidone 0.5 mg 08/10/24 09:00 08/13/24 11:10 Risperidone 0.5 Mg Tablet PO 0.5 mg Q12HR JANEEN Administration Radiology Results: ITS Impressions Sacrum and Coccyx X-Ray 08/09/24 23:49 IMPRESSION: Acute fracture the distal coccyx with posterior displacement of the fracture fragment Head CT 08/09/24 23:53 Impression: No acute intracranial hemorrhage or suspicious mass effect. 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 Chest CTA 08/10/24 06:19 Impression: No evidence of pulmonary embolus, aortic dissection, or aortic aneurysm. [id number] emphysema. Chest X-Ray 08/12/24 06:02 Impression: Central venous congestive change and probable minimal interstitial edema. Labs Labs: Laboratory Results - last 24 hr 08/13/24 06:25 WBC 6.5 RBC 3.80 L Hgb 11.8 L Hct 36.2 L MCV 95.3 MCH 31.1 MCHC 32.6 RDW 13.2 Plt Count 259 MPV 9.0 Immature Gran % (Auto) 0.2 Neut % (Auto) 62.5 Lymph % (Auto) 22.9 [place] % (Auto) 14.1 H Eos % (Auto) 0.0 Baso % (Auto) 0.3 Lymph # (Auto) 1.49 [place] # (Auto) 0.9 H Eos # (Auto) 0.0 Baso # (Auto) 0.0 Abs Immat Gran (auto) 0.01 Absolute Neuts (auto) 4.1 Absolute Nucleated RBC 0.000 Nucleated RBC % 0.0 Sodium 140 Potassium 3.6 Chloride 105 Carbon Dioxide 27 Anion Gap 8 BUN 8 Creatinine 0.60 L Estim Creat Clear Calc 48 Estimated GFR > 60 Glucose 101 Calcium 8.8 Total Bilirubin 0.5 AST 36 ALT 23 Alkaline Phosphatase 58 Total Creatine Kinase 502 H Total Protein 6.0 L Albumin 3.7 Quality VTE Prophylaxis VTE prophylaxis: mechanical ordered and pharmacologic ordered Hospitalist MIPS Advance Care Plan I have confirmed that the patient's Advanced Care Plan is present, code status is documented, or surrogate decision maker is listed in patient medical record.: Yes Medication Reconciliation I have utilized all available resources to obtain, update and review the patients current medications (includes all prescriptions, OTC, herbals, cannabis, and nutritional supplements).: Yes
[2024-08-13] MEDS: ATORVASTATIN 10 MG TABLET PO (20:28)
[2024-08-13] MEDS: MIRTAZAPINE 15 MG TABLET 30 MG PO (20:28)
[2024-08-13 21:33] VITALS: BP 149/50; PULSE 69; RESP 22; TEMP 36.7; O2SAT 94
[2024-08-14 05:26] VITALS: BP 138/52; PULSE 58; RESP 20; TEMP 36.3; O2SAT 100
[2024-08-14 06:50] LABS: Basophils Percent Auto 0.4 % (0.2-1.2); Hematocrit 34.5 % (37.0-47.0); Immature Granulocyte Absolute 0.02 K/mm3 (0.00-0.031); Immature Granulocyte Percent A 0.3 % (0-0.5); Lymphocytes Absolute Auto 1.68 K/mm3 (0.9-3.2); Lymphocytes Percent Auto 22.7 % (18.3-44.2); Mean Corpuscular HGB Conc 31.9 g/dl (32-36); Mean Corpuscular Hemoglobin 30.7 pg (26-34); Mean Corpuscular Volume 96.4 fl (80-100); Mean Platelet Volume 8.8 fl (7.4-10.4); Monocytes Absolute Auto 1.1 K/mm3 (0.1-0.6); Monocytes Percent Auto 14.6 % (2.6-8.5); Neutrophils Absolute Auto 4.6 K/mm3 (1.3-6.7); Platelet Count Result 275 k/mm3 (150-375); Red Blood Count 3.58 M/mm3 (4.2-5.4); Red Cell Distribution Width 13.2 % (11.5-14.5); White Blood Count 7.4 K/mm3 (4.5-10.0)
[2024-08-14 07:04] LABS: Alanine Aminotransferase 21 U/L (6-35); Albumin Level 3.2 g/dL (3.5-5.1); Alkaline Phosphatase 55 U/L (38-126); Anion Gap 4 mmol/L (4-12); Aspartate Amino Transferase 29 U/L (14-36); Bilirubin,Total 0.4 mg/dL (0.2-1.3); Blood Urea Nitrogen 12 mg/dL (7-17); Calcium 8.5 mg/dL (8.4-10.2); Carbon Dioxide 29 mmol/L (22-30); Chloride 103 mmol/L (98-107); Creatine Kinase 209 U/L (30-135); Estimated CRCL calculation 37 ml/min; Estimated Glomerular Filt Rate > 60; Glucose 94 mg/dL (65-110); Potassium 3.7 mmol/L (3.4-5.0); Sodium 136 mmol/L (137-145)
[2024-08-14] MEDS: risperiDONE 0.5 MG TABLET PO ×2 (09:13→20:23)
[2024-08-14] MEDS: amLODIPine BESYLATE 10 MG TABLET PO (09:13)
[2024-08-14] MEDS: GABAPENTIN 100 MG CAPSULE PO ×3 (09:13→17:08)
[2024-08-14] MEDS: DOCUSATE SODIUM 100 MG CAPSULE PO (09:13)
[2024-08-14] MEDS: carvediloL 25 MG TABLET PO ×2 (09:13→17:08)
[2024-08-14] MEDS: guaiFENesin 12 HR 600 MG TABCR PO ×2 (09:13→20:23)
[2024-08-14] MEDS: lamoTRIgine 100 MG TABLET PO (09:13)
[2024-08-14] MEDS: BENZONATATE 100 MG CAPSULE PO ×3 (09:13→17:08)
[2024-08-14] MEDS: methocarbamoL 750 MG TABLET PO ×4 (09:14→20:23)
--- NOTE | 2024-08-14 09:36 | P.PNIM_ITS ---
Progress Note: A&P Assessment and Plan (1) Rhabdomyolysis: Code(s): M62.82 - Rhabdomyolysis Status: Acute Assessment and Plan: * Possibly secondary to prolonged time on the floor post fall. * CK continues to improve, almost wnl. * Continue to encourage oral hydration. * Continue to monitor CK levels. (2) Fracture of coccyx: Qualifiers: Encounter type: initial encounter Code(s): S32.2XXA - Fracture of coccyx, initial encounter for closed fracture Status: Acute Assessment and Plan: * Seen by Orthopedic. * Conservative mgt with pain meds PRN recommended for now by Ortho. * Follow-up with Ortho in 1 month. * Continue PT/OT treatment. * Awaiting SNF placement. (3) Generalized weakness: Code(s): R53.1 - Weakness Status: Acute Assessment and Plan: * Possibly secondary to deconditioning. * Continue PT/OT eval treatment. * Awaiting SNF placement for conditioning. * Fall precautions. * Assist with care. (4) Falls: Code(s): R29.6 - Repeated falls Status: Acute Assessment and Plan: * Mgt as # 3 above. * UA negative for UTI (5) Hypokalemia: Code(s): E87.6 - Hypokalemia Status: Acute Assessment and Plan: * replete as needed. * Continue to monitor levels. (6) Hypertension: Code(s): I10 - Essential (primary) hypertension Status: Chronic Assessment and Plan: * Blood pressure fairly well controlled. * Continue home Amlodipine 10 mg PO daily and Carvedilol 25 mg PO BID. (7) Hyperlipidemia: Code(s): E78.5 - Hyperlipidemia, unspecified Status: Chronic Assessment and Plan: * continue Atorvastatin 10 mg PO QHS. Plan Discharge to SNF when accepted. Continue PT/OT treatment and pain mgt. Fall precautions and encouraged with IS use. Time Spent With Patient Time with patient: 15 - 25 minutes Subjective Date/time seen: 08/14/24 09:36 Patient states she feels like the pain is improved and it's tolerable, though it mainly gets worse laying down. States will try and sit on the chair some more today. Interval history: Patient calm on bedrest and looks to be in no acute distress. Review of Systems Review of Systems: All systems reviewed & are unremarkable except as noted in HPI and below Exam Narrative: General: Generalized muscle weakness but no acute distress. HEENT: Atraumatic, PERRL, EOM, anicteric, moist mucus membranes. NECK: Supple. Lungs: Crackles to bilateral bases. Heart: RRR, no murmurs. Abdomen: Soft, non-tender, non-distended, +ve bowel sounds X4 quadrants. Extremities: No edema. 2+ pedal edema. Skin: Warm and dry with no lesions. Neuro: Fairly well oriented. No focal neuro deficits noted. Psych: Co-operative and appropriate. Objective Data Vital Signs Vital Signs: Vital Signs - 24 hr 08/13/24 10:29 08/13/24 14:00 08/13/24 17:16 Temperature 97.2 F L Pulse Rate 64 74 Respiratory Rate 20 Blood Pressure 114/49 L Pulse Oximetry 94 97 Oxygen Delivery Nasal Cannula Oxygen Flow Rate 2 Fraction of Inspired Oxygen 28 08/13/24 21:33 08/14/24 05:26 Temperature 98.1 F 97.4 F L Pulse Rate 69 58 L Respiratory Rate 22 H 20 Blood Pressure 149/50 H 138/52 L Pulse Oximetry 94 100 Oxygen Delivery Oxygen Flow Rate Fraction of Inspired Oxygen Intake/Output Intake/Output: Intake & Output 08/11/24 08/12/24 08/13/24 08/14/24 23:59 23:59 23:59 23:59 Intake Total 935 817 7220 200 Output Total 400 1150 1350 150 Balance 318 -440 -340 50 Meds/Results Medications: Active Medications Generic Name Dose Route Start Last Admin Trade Name Freq PRN Reason Stop Dose Admin Acetaminophen 650 mg 08/10/24 06:02 Acetaminophen 325 Mg Tablet PO Q4H PRN Fever Acetaminophen 325 mg 08/10/24 08:43 Acetaminophen 325 Mg Tablet PO Q4H PRN Pain 1-3 Hydrocodone Bitart/Acetaminophen 1 tab 08/10/24 19:51 08/11/24 12:25 Hydrocodone/Acetaminophen (*Crx) 5-325 Mg Tablet PO 1 tab Q4H PRN Administration Pain Rated 4-6 Albuterol 2 puff 08/10/24 08:43 Albuterol Sulfate (*Sp) Aerosol 1 Puff INHALATION Q4HRT PRN Shortness Of Breath Albuterol/Ipratropium 3 ml 08/10/24 13:46 Ipratropium 0.5 Mg/Albuterol Sulfate 2.5 Mg Ampul.Neb 3 Ml INHALATION Q6HRT PRN Shortness Of Breath Or Wheezing Amlodipine Besylate 10 mg 08/10/24 09:00 08/14/24 09:13 Amlodipine Besylate 10 Mg Tablet PO 10 mg DAILY JANEEN Administration Atorvastatin Calcium 10 mg 08/10/24 21:00 08/13/24 20:28 Atorvastatin 10 Mg Tablet PO 10 mg HS JANEEN Administration Benzonatate 100 mg 08/11/24 17:00 08/14/24 09:13 Benzonatate 100 Mg Capsule PO 100 mg TID JANEEN Administration Carvedilol 25 mg 08/10/24 08:00 08/14/24 09:13 Carvedilol 25 Mg Tablet PO 25 mg BIDWM JANEEN Administration Docusate Sodium 100 mg 08/10/24 08:45 08/14/24 09:13 Docusate Sodium 100 Mg Capsule PO 100 mg Q12H PRN Administration Constipation Enoxaparin Sodium 40 mg 08/12/24 09:00 08/14/24 09:13 Enoxaparin 40 Mg/0.4 Ml Syringe SUB-Q Not Given DAILY JANEEN Gabapentin 100 mg 08/12/24 13:00 08/14/24 09:13 Gabapentin 100 Mg Capsule PO 100 mg TID JANEEN Administration Guaifenesin 600 mg 08/10/24 09:00 08/14/24 09:13 Guaifenesin 12 Hr 600 Mg Tabcr PO 08/17/24 08:59 600 mg Q12HR JANEEN Administration Lamotrigine 100 mg 08/10/24 09:00 08/14/24 09:13 Lamotrigine 100 Mg Tablet PO 100 mg DAILY JANEEN Administration Lamotrigine 200 mg 08/10/24 18:00 08/13/24 17:17 Lamotrigine 100 Mg Tablet PO 200 mg QPM JANEEN Administration Lidocaine 1 patch 08/13/24 09:00 08/14/24 09:14 Lidocaine 5% Patch TRANSDERM Not Given DAILY JANEEN Methocarbamol 750 mg 08/12/24 13:00 08/14/24 09:14 Methocarbamol 750 Mg Tablet PO 750 mg QID JANEEN Administration Mirtazapine 30 mg 08/10/24 21:00 08/13/24 20:28 Mirtazapine 15 Mg Tablet PO 30 mg HS JANEEN Administration Ondansetron HCl 4 mg 08/10/24 06:02 Ondansetron Inj 4 Mg/2 Ml Vial IV PUSH Q4H PRN Nausea Risperidone 0.5 mg 08/10/24 09:00 08/14/24 09:13 Risperidone 0.5 Mg Tablet PO 0.5 mg Q12HR JANEEN Administration Radiology Results: ITS Impressions Sacrum and Coccyx X-Ray 08/09/24 23:49 IMPRESSION: Acute fracture the distal coccyx with posterior displacement of the fracture fragment Head CT 08/09/24 23:53 Impression: No acute intracranial hemorrhage or suspicious mass effect. 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 Chest CTA 08/10/24 06:19 Impression: No evidence of pulmonary embolus, aortic dissection, or aortic aneurysm. [id number] emphysema. Chest X-Ray 08/12/24 06:02 Impression: Central venous congestive change and probable minimal interstitial edema. Labs Labs: Laboratory Results - last 24 hr 08/14/24 08/14/24 06:20 06:20 WBC 7.4 RBC 3.58 L Hgb 11.0 L Hct 34.5 L MCV 96.4 MCH 30.7 MCHC 31.9 L RDW 13.2 Plt Count 275 MPV 8.8 Immature Gran % (Auto) 0.3 Neut % (Auto) 62.0 Lymph % (Auto) 22.7 [place] % (Auto) 14.6 H Eos % (Auto) 0.0 Baso % (Auto) 0.4 Lymph # (Auto) 1.68 [place] # (Auto) 1.1 H Eos # (Auto) 0.0 Baso # (Auto) 0.0 Abs Immat Gran (auto) 0.02 Absolute Neuts (auto) 4.6 Absolute Nucleated RBC 0.000 Nucleated RBC % 0.0 Sodium 136 L Potassium 3.7 Chloride 103 Carbon Dioxide 29 Anion Gap 4 BUN 12 Creatinine 0.80 Estim Creat Clear Calc 37 Estimated GFR > 60 Glucose 94 Calcium 8.5 Total Bilirubin 0.4 AST 29 ALT 21 Alkaline Phosphatase 55 Total Creatine Kinase 209 H Cancelled Total Protein 6.0 L Albumin 3.2 L Quality VTE Prophylaxis VTE prophylaxis: mechanical ordered and pharmacologic ordered Hospitalist MIPS Advance Care Plan I have confirmed that the patient's Advanced Care Plan is present, code status is documented, or surrogate decision maker is listed in patient medical record.: Yes Medication Reconciliation I have utilized all available resources to obtain, update and review the patients current medications (includes all prescriptions, OTC, herbals, cannabis, and nutritional supplements).: Yes
[2024-08-14] MEDS: HYDROcodone/acetaminophen (*CRX) 5-325 MG TABLET 1 TAB PO ×2 (12:33→20:33)
[2024-08-14 14:00] VITALS: BP 133/46; PULSE 68; RESP 18; TEMP 36.9; O2SAT 90
[2024-08-14] MEDS: lamoTRIgine 100 MG TABLET 200 MG PO (17:08)
[2024-08-14 17:21] VITALS: O2SAT 100
[2024-08-14] MEDS: FUROSEMIDE INJ 40 MG/4 ML VIAL 20 MG IV PUSH (18:15)
[2024-08-14 20:00] VITALS: O2SAT 98
[2024-08-14] MEDS: MIRTAZAPINE 15 MG TABLET 30 MG PO (20:23)
[2024-08-14] MEDS: ATORVASTATIN 10 MG TABLET PO (20:23)
[2024-08-14 21:41] VITALS: BP 142/54; PULSE 60; RESP 20; TEMP 36.3; O2SAT 98
[2024-08-15 05:57] VITALS: BP 137/58; PULSE 66; RESP 18; TEMP 36.1; O2SAT 94
[2024-08-15 07:32] LABS: Basophils Percent Auto 0.3 % (0.2-1.2); Hematocrit 37.1 % (37.0-47.0); Hemoglobin 11.9 g/dL (12.0-15.0); Immature Granulocyte Absolute 0.03 K/mm3 (0.00-0.031); Immature Granulocyte Percent A 0.3 % (0-0.5); Lymphocytes Absolute Auto 1.43 K/mm3 (0.9-3.2); Lymphocytes Percent Auto 15.8 % (18.3-44.2); Mean Corpuscular HGB Conc 32.1 g/dl (32-36); Mean Corpuscular Hemoglobin 30.7 pg (26-34); Mean Corpuscular Volume 95.6 fl (80-100); Mean Platelet Volume 8.8 fl (7.4-10.4); Monocytes Absolute Auto 1.2 K/mm3 (0.1-0.6); Neutrophils Absolute Auto 6.4 K/mm3 (1.3-6.7); Neutrophils Percent Auto 70.6 % (45.5-73.1); Platelet Count Result 303 k/mm3 (150-375); Red Blood Count 3.88 M/mm3 (4.2-5.4); Red Cell Distribution Width 13.2 % (11.5-14.5); White Blood Count 9.1 K/mm3 (4.5-10.0)
[2024-08-15 07:50] LABS: Alanine Aminotransferase 27 U/L (6-35); Albumin Level 3.5 g/dL (3.5-5.1); Alkaline Phosphatase 62 U/L (38-126); Anion Gap 4 mmol/L (4-12); Aspartate Amino Transferase 36 U/L (14-36); Bilirubin,Total 0.6 mg/dL (0.2-1.3); Blood Urea Nitrogen 12 mg/dL (7-17); Calcium 8.7 mg/dL (8.4-10.2); Carbon Dioxide 34 mmol/L (22-30); Chloride 99 mmol/L (98-107); Creatine Kinase 119 U/L (30-135); Estimated CRCL calculation 37 ml/min; Estimated Glomerular Filt Rate > 60; Glucose 102 mg/dL (65-110); Potassium 3.8 mmol/L (3.4-5.0); Sodium 137 mmol/L (137-145)
[2024-08-15 08:00] VITALS: O2SAT 93
[2024-08-15 08:45] VITALS: O2SAT 91
[2024-08-15] MEDS: ENOXAPARIN 40 MG/0.4 ML SYRINGE SUB-Q (08:45)
[2024-08-15] MEDS: BENZONATATE 100 MG CAPSULE PO ×3 (08:45→16:23)
[2024-08-15] MEDS: risperiDONE 0.5 MG TABLET PO ×2 (08:45→21:33)
[2024-08-15] MEDS: amLODIPine BESYLATE 10 MG TABLET PO (08:46)
[2024-08-15] MEDS: GABAPENTIN 100 MG CAPSULE PO ×3 (08:46→16:23)
[2024-08-15] MEDS: lamoTRIgine 100 MG TABLET PO (08:46)
[2024-08-15] MEDS: methocarbamoL 750 MG TABLET PO ×4 (08:46→21:33)
[2024-08-15] MEDS: LIDOCAINE 5% PATCH 1 PATCH TRANSDERM (08:46)
[2024-08-15] MEDS: carvediloL 25 MG TABLET PO ×2 (08:47→16:23)
[2024-08-15] MEDS: guaiFENesin 12 HR 600 MG TABCR PO ×2 (09:14→21:32)
--- NOTE | 2024-08-15 12:06 | P.PNIM_ITS ---
Progress Note: A&P Assessment and Plan (1) Rhabdomyolysis: Code(s): M62.82 - Rhabdomyolysis Status: Acute Assessment and Plan: * Possibly secondary to prolonged time on the floor post fall. * CK currently wnl. * Continue to encourage oral hydration. (2) Fracture of coccyx: Qualifiers: Encounter type: initial encounter Code(s): S32.2XXA - Fracture of coccyx, initial encounter for closed fracture Status: Acute Assessment and Plan: * Seen by Orthopedic. * Conservative mgt with pain meds PRN recommended for now by Ortho. * Follow-up with Ortho in 1 month. * Continue PT/OT treatment. * Awaiting SNF placement. (3) Generalized weakness: Code(s): R53.1 - Weakness Status: Acute Assessment and Plan: * Possibly secondary to deconditioning. * Continue PT/OT eval treatment. * Awaiting SNF placement for conditioning. * Fall precautions. * Assist with care. (4) Falls: Code(s): R29.6 - Repeated falls Status: Acute Assessment and Plan: * Mgt as # 3 above. * UA negative for UTI (5) Hypokalemia: Code(s): E87.6 - Hypokalemia Status: Acute Assessment and Plan: * replete as needed. * Continue to monitor levels. (6) Hypertension: Code(s): I10 - Essential (primary) hypertension Status: Chronic Assessment and Plan: * Blood pressure fairly well controlled. * Continue home Amlodipine 10 mg PO daily and Carvedilol 25 mg PO BID. (7) Hyperlipidemia: Code(s): E78.5 - Hyperlipidemia, unspecified Status: Chronic Assessment and Plan: * continue Atorvastatin 10 mg PO QHS. Plan Discharge to SNF when accepted. Continue PT/OT treatment and pain mgt. Fall precautions and encouraged with IS use. Time Spent With Patient Time with patient: 15 - 25 minutes Subjective Date/time seen: 08/15/24 12:06 Patient calm on bedrest and states she feels alright except for some pain to her coccyx. States she's normally independent and it's very difficult and frustratin g for her not being able to ambulate. States she just has to accept the reality and wait till she recovers and resume her regular activity but it's very difficult for her. Interval history: Patient calm on bedrest, very emotional regarding her condition and possibility of having to go to rehab for conditioning. Review of Systems Review of Systems: All systems reviewed & are unremarkable except as noted in HPI and below Exam Narrative: General: Generalized muscle weakness, very emotional. HEENT: Atraumatic, PERRL, EOM, anicteric, moist mucus membranes. NECK: Supple. Lungs: Crackles to bilateral bases. Heart: RRR, no murmurs. Abdomen: Soft, non-tender, non-distended, +ve bowel sounds X4 quadrants. Extremities: No edema. 2+ pedal pulses. Skin: Warm and dry with no lesions or cyanosis. Neuro: Fairly well oriented. No focal neuro deficits noted. Psych: Co-operative and appropriate, emotional. Objective Data Vital Signs Vital Signs: Vital Signs - 24 hr 08/14/24 14:00 08/14/24 17:21 08/14/24 21:41 Temperature 98.4 F 97.4 F L Pulse Rate 68 60 Respiratory Rate 18 20 Blood Pressure 133/46 L 142/54 H Pulse Oximetry 90 100 98 Oxygen Delivery Nasal Cannula Oxygen Flow Rate 3 Fraction of Inspired Oxygen 08/14/24 20:00 08/15/24 05:57 08/15/24 08:45 Temperature 97.0 F L Pulse Rate 66 Respiratory Rate 18 Blood Pressure 137/58 L Pulse Oximetry 98 94 91 Oxygen Delivery Nasal Cannula Nasal Cannula Oxygen Flow Rate 3 1 Fraction of Inspired Oxygen 08/15/24 08:00 Temperature Pulse Rate Respiratory Rate Blood Pressure Pulse Oximetry 93 Oxygen Delivery Nasal Cannula Oxygen Flow Rate 1 Fraction of Inspired Oxygen Intake/Output Intake/Output: Intake & Output 08/12/24 08/13/24 08/14/24 08/15/24 23:59 23:59 23:59 23:59 Intake Total 710 1010 560 220 Output Total 1150 1350 550 600 Balance -440 -340 10 -380 Meds/Results Medications: Active Medications Generic Name Dose Route Start Last Admin Trade Name Freq PRN Reason Stop Dose Admin Acetaminophen 650 mg 08/10/24 06:02 Acetaminophen 325 Mg Tablet PO Q4H PRN Fever Acetaminophen 325 mg 08/10/24 08:43 Acetaminophen 325 Mg Tablet PO Q4H PRN Pain 1-3 Hydrocodone Bitart/Acetaminophen 1 tab 08/10/24 19:51 08/14/24 20:33 Hydrocodone/Acetaminophen (*Crx) 5-325 Mg Tablet PO 1 tab Q4H PRN Administration Pain Rated 4-6 Albuterol 2 puff 08/10/24 08:43 Albuterol Sulfate (*Sp) Aerosol 1 Puff INHALATION Q4HRT PRN Shortness Of Breath Albuterol/Ipratropium 3 ml 08/10/24 13:46 Ipratropium 0.5 Mg/Albuterol Sulfate 2.5 Mg Ampul.Neb 3 Ml INHALATION Q6HRT PRN Shortness Of Breath Or Wheezing Amlodipine Besylate 10 mg 08/10/24 09:00 08/15/24 08:46 Amlodipine Besylate 10 Mg Tablet PO 10 mg DAILY JANEEN Administration Atorvastatin Calcium 10 mg 08/10/24 21:00 08/14/24 20:23 Atorvastatin 10 Mg Tablet PO 10 mg HS JANEEN Administration Benzonatate 100 mg 08/11/24 17:00 08/15/24 08:45 Benzonatate 100 Mg Capsule PO 100 mg TID JANEEN Administration Carvedilol 25 mg 08/10/24 08:00 08/15/24 08:47 Carvedilol 25 Mg Tablet PO 25 mg BIDWM JANEEN Administration Docusate Sodium 100 mg 08/10/24 08:45 08/14/24 09:13 Docusate Sodium 100 Mg Capsule PO 100 mg Q12H PRN Administration Constipation Enoxaparin Sodium 40 mg 08/12/24 09:00 08/15/24 08:45 Enoxaparin 40 Mg/0.4 Ml Syringe SUB-Q 40 mg DAILY JANEEN Administration Gabapentin 100 mg 08/12/24 13:00 08/15/24 08:46 Gabapentin 100 Mg Capsule PO 100 mg TID JANEEN Administration Guaifenesin 600 mg 08/10/24 09:00 08/15/24 09:14 Guaifenesin 12 Hr 600 Mg Tabcr PO 08/17/24 08:59 600 mg Q12HR JANEEN Administration Lamotrigine 100 mg 08/10/24 09:00 08/15/24 08:46 Lamotrigine 100 Mg Tablet PO 100 mg DAILY JANEEN Administration Lamotrigine 200 mg 08/10/24 18:00 08/14/24 17:08 Lamotrigine 100 Mg Tablet PO 200 mg QPM JANEEN Administration Lidocaine 1 patch 08/13/24 09:00 08/15/24 08:46 Lidocaine 5% Patch TRANSDERM 1 patch DAILY JANEEN Administration Methocarbamol 750 mg 08/12/24 13:00 08/15/24 08:46 Methocarbamol 750 Mg Tablet PO 750 mg QID JANEEN Administration Mirtazapine 30 mg 08/10/24 21:00 08/14/24 20:23 Mirtazapine 15 Mg Tablet PO 30 mg HS JANEEN Administration Ondansetron HCl 4 mg 08/10/24 06:02 Ondansetron Inj 4 Mg/2 Ml Vial IV PUSH Q4H PRN Nausea Risperidone 0.5 mg 08/10/24 09:00 08/15/24 08:45 Risperidone 0.5 Mg Tablet PO 0.5 mg Q12HR JANEEN Administration Radiology Results: ITS Impressions Sacrum and Coccyx X-Ray 08/09/24 23:49 IMPRESSION: Acute fracture the distal coccyx with posterior displacement of the fracture fragment Head CT 08/09/24 23:53 Impression: No acute intracranial hemorrhage or suspicious mass effect. 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 Chest CTA 08/10/24 06:19 Impression: No evidence of pulmonary embolus, aortic dissection, or aortic aneurysm. [id number] emphysema. Chest X-Ray 08/14/24 17:35 IMPRESSION: Mild interstitial edema. Labs Labs: Laboratory Results - last 24 hr 08/15/24 06:55 WBC 9.1 RBC 3.88 L Hgb 11.9 L Hct 37.1 MCV 95.6 MCH 30.7 MCHC 32.1 RDW 13.2 Plt Count 303 MPV 8.8 Immature Gran % (Auto) 0.3 Neut % (Auto) 70.6 Lymph % (Auto) 15.8 L [place] % (Auto) 13.0 H Eos % (Auto) 0.0 Baso % (Auto) 0.3 Lymph # (Auto) 1.43 [place] # (Auto) 1.2 H Eos # (Auto) 0.0 Baso # (Auto) 0.0 Abs Immat Gran (auto) 0.03 Absolute Neuts (auto) 6.4 Absolute Nucleated RBC 0.000 Nucleated RBC % 0.0 Sodium 137 Potassium 3.8 Chloride 99 Carbon Dioxide 34 H Anion Gap 4 BUN 12 Creatinine 0.80 Estim Creat Clear Calc 37 Estimated GFR > 60 Glucose 102 Calcium 8.7 Total Bilirubin 0.6 AST 36 ALT 27 Alkaline Phosphatase 62 Total Creatine Kinase 119 Total Protein 6.0 L Albumin 3.5 Quality VTE Prophylaxis VTE prophylaxis: mechanical ordered and pharmacologic ordered Hospitalist MIPS Advance Care Plan I have confirmed that the patient's Advanced Care Plan is present, code status is documented, or surrogate decision maker is listed in patient medical record.: Yes Medication Reconciliation I have utilized all available resources to obtain, update and review the patients current medications (includes all prescriptions, OTC, herbals, cannabis, and nutritional supplements).: Yes
[2024-08-15 14:00] VITALS: BP 104/47; PULSE 63; RESP 18; TEMP 36.6; O2SAT 97
[2024-08-15] MEDS: lamoTRIgine 100 MG TABLET 200 MG PO (16:23)
[2024-08-15 20:49] VITALS: BP 125/53; PULSE 64; RESP 20; TEMP 36.3; O2SAT 95
[2024-08-15] MEDS: MIRTAZAPINE 15 MG TABLET 30 MG PO (21:32)
[2024-08-15] MEDS: ATORVASTATIN 10 MG TABLET PO (21:33)
[2024-08-16] VITALS (8 sets, daily range): BP systolic 120–148; BP diastolic 47–54; PULSE 58–66; RESP 16–20; TEMP 36.2–36.7; O2SAT 90–95
[2024-08-16 06:54] LABS: Basophils Percent Auto 0.3 % (0.2-1.2); Hematocrit 35.1 % (37.0-47.0); Hemoglobin 11.4 g/dL (12.0-15.0); Immature Granulocyte Absolute 0.04 K/mm3 (0.00-0.031); Immature Granulocyte Percent A 0.4 % (0-0.5); Lymphocytes Absolute Auto 1.65 K/mm3 (0.9-3.2); Lymphocytes Percent Auto 18.2 % (18.3-44.2); Mean Corpuscular HGB Conc 32.5 g/dl (32-36); Mean Corpuscular Hemoglobin 30.9 pg (26-34); Mean Corpuscular Volume 95.1 fl (80-100); Mean Platelet Volume 8.8 fl (7.4-10.4); Monocytes Absolute Auto 1.3 K/mm3 (0.1-0.6); Monocytes Percent Auto 13.9 % (2.6-8.5); Neutrophils Absolute Auto 6.1 K/mm3 (1.3-6.7); Neutrophils Percent Auto 67.2 % (45.5-73.1); Platelet Count Result 339 k/mm3 (150-375); Red Blood Count 3.69 M/mm3 (4.2-5.4); Red Cell Distribution Width 13.1 % (11.5-14.5); White Blood Count 9.1 K/mm3 (4.5-10.0)
[2024-08-16 07:04] LABS: Creatine Kinase 89 U/L (30-135)
[2024-08-16 07:07] LABS: Alanine Aminotransferase 34 U/L (6-35); Albumin Level 3.4 g/dL (3.5-5.1); Alkaline Phosphatase 64 U/L (38-126); Anion Gap 1 mmol/L (4-12); Aspartate Amino Transferase 46 U/L (14-36); Bilirubin,Total 0.4 mg/dL (0.2-1.3); Blood Urea Nitrogen 14 mg/dL (7-17); Calcium 8.8 mg/dL (8.4-10.2); Carbon Dioxide 33 mmol/L (22-30); Chloride 103 mmol/L (98-107); Estimated CRCL calculation 37 ml/min; Estimated Glomerular Filt Rate > 60; Glucose 102 mg/dL (65-110); Potassium 3.6 mmol/L (3.4-5.0); Sodium 137 mmol/L (137-145)
[2024-08-16] MEDS: risperiDONE 0.5 MG TABLET PO ×2 (08:17→20:29)
[2024-08-16] MEDS: LIDOCAINE 5% PATCH 1 PATCH TRANSDERM (08:17)
[2024-08-16] MEDS: guaiFENesin 12 HR 600 MG TABCR PO ×2 (08:17→20:29)
[2024-08-16] MEDS: carvediloL 25 MG TABLET PO ×2 (08:18→16:43)
[2024-08-16] MEDS: methocarbamoL 750 MG TABLET PO ×4 (08:18→20:29)
[2024-08-16] MEDS: amLODIPine BESYLATE 10 MG TABLET PO (08:18)
[2024-08-16] MEDS: lamoTRIgine 100 MG TABLET PO (08:18)
[2024-08-16] MEDS: GABAPENTIN 100 MG CAPSULE PO ×3 (08:19→16:45)
[2024-08-16] MEDS: BENZONATATE 100 MG CAPSULE PO ×3 (08:19→16:44)
[2024-08-16] MEDS: ENOXAPARIN 40 MG/0.4 ML SYRINGE SUB-Q (08:19)
--- NOTE | 2024-08-16 09:58 | PCNWS ---
Weekly nutritional screen. Patient is tolerating current regular diet with adequate intake 75-100% of meals. No weight loss reported. No nutritional recommendations at this time.
[2024-08-16] MEDS: ACETAMINOPHEN 325 MG TABLET 650 MG PO (13:31)
--- NOTE | 2024-08-16 15:59 | P.PNIM_ITS ---
Progress Note: A&P Assessment and Plan (1) Rhabdomyolysis: Code(s): M62.82 - Rhabdomyolysis Status: Acute Assessment and Plan: * Resolved with IVF hydration. * Possibly secondary to prolonged time on the floor post fall. (2) Fracture of coccyx: Qualifiers: Encounter type: initial encounter Code(s): S32.2XXA - Fracture of coccyx, initial encounter for closed fracture Status: Acute Assessment and Plan: * Seen by Orthopedic. * Conservative mgt with pain meds PRN recommended for now by Ortho. * Follow-up with Ortho in 1 month. * Continue PT/OT treatment. * Awaiting SNF placement. (3) Generalized weakness: Code(s): R53.1 - Weakness Status: Acute Assessment and Plan: * Possibly secondary to deconditioning. * Continue PT/OT eval treatment. * Awaiting SNF placement for conditioning. * Fall precautions. * Assist with care. (4) Falls: Code(s): R29.6 - Repeated falls Status: Acute Assessment and Plan: * Mgt as # 3 above. * UA negative for UTI (5) Hypokalemia: Code(s): E87.6 - Hypokalemia Status: Acute Assessment and Plan: * replete as needed. * Continue to monitor levels. (6) Hypertension: Code(s): I10 - Essential (primary) hypertension Status: Chronic Assessment and Plan: * Blood pressure fairly well controlled. * Continue home Amlodipine 10 mg PO daily and Carvedilol 25 mg PO BID. (7) Hyperlipidemia: Code(s): E78.5 - Hyperlipidemia, unspecified Status: Chronic Assessment and Plan: * continue Atorvastatin 10 mg PO QHS. Plan Discharge to SNF when accepted. Continue PT/OT treatment and pain mgt. Fall precautions and encouraged with IS use. Time Spent With Patient Time with patient: 15 - 25 minutes Subjective Date/time seen: 08/16/24 15:59 Patient states she feels alright, just some pain to her coccyx region but getting better. States she's ok going to Rehab briefly before she goes back home but really want's to get back to her place and continue her home activities. Interval history: Patient calm on bedrest and looks to be in no acute distress. Review of Systems Review of Systems: All systems reviewed & are unremarkable except as noted in HPI and below Exam Narrative: General: Generalized muscle weakness, no acute distress. HEENT: Atraumatic, PERRL, EOM, anicteric, moist mucus membranes. NECK: Supple. Lungs: Crackles to mainly left base. Heart: RRR, no murmurs. Abdomen: Soft, non-tender, non-distended, +ve bowel sounds X4 quadrants. Extremities: No edema. 2+ pedal pulses. Skin: Warm and dry with no lesions or cyanosis. Neuro: Fairly well oriented. No focal neuro deficits noted. Psych: Co-operative and appropriate. Objective Data Vital Signs Vital Signs: Vital Signs - 24 hr 08/15/24 20:49 08/16/24 05:22 08/16/24 08:18 Temperature 97.4 F L 97.3 F L Pulse Rate 64 64 61 Respiratory Rate 20 20 Blood Pressure 125/53 L 148/53 H Pulse Oximetry 95 95 Oxygen Delivery Oxygen Flow Rate 08/16/24 08:00 08/16/24 11:18 08/16/24 14:00 Temperature 97.1 F L Pulse Rate 58 L 66 Respiratory Rate 16 Blood Pressure 120/54 L Pulse Oximetry 91 95 90 Oxygen Delivery Nasal Cannula Room Air Oxygen Flow Rate 1 08/16/24 11:20 Temperature Pulse Rate Respiratory Rate Blood Pressure Pulse Oximetry 95 Oxygen Delivery Room Air Oxygen Flow Rate Intake/Output Intake/Output: Intake & Output 08/13/24 08/14/24 08/15/24 08/16/24 23:59 23:59 23:59 23:59 Intake Total 7782 740 3353 320 Output Total 1350 597 355 1915 Balance -340 10 480 -680 Meds/Results Medications: Active Medications Generic Name Dose Route Start Last Admin Trade Name Freq PRN Reason Stop Dose Admin Acetaminophen 650 mg 08/10/24 06:02 08/16/24 13:31 Acetaminophen 325 Mg Tablet PO 650 mg Q4H PRN Administration Fever Acetaminophen 325 mg 08/10/24 08:43 Acetaminophen 325 Mg Tablet PO Q4H PRN Pain 1-3 Hydrocodone Bitart/Acetaminophen 1 tab 08/10/24 19:51 08/14/24 20:33 Hydrocodone/Acetaminophen (*Crx) 5-325 Mg Tablet PO 1 tab Q4H PRN Administration Pain Rated 4-6 Albuterol 2 puff 08/10/24 08:43 Albuterol Sulfate (*Sp) Aerosol 1 Puff INHALATION Q4HRT PRN Shortness Of Breath Albuterol/Ipratropium 3 ml 08/10/24 13:46 Ipratropium 0.5 Mg/Albuterol Sulfate 2.5 Mg Ampul.Neb 3 Ml INHALATION Q6HRT PRN Shortness Of Breath Or Wheezing Amlodipine Besylate 10 mg 08/10/24 09:00 08/16/24 08:18 Amlodipine Besylate 10 Mg Tablet PO 10 mg DAILY JANEEN Administration Atorvastatin Calcium 10 mg 08/10/24 21:00 08/15/24 21:33 Atorvastatin 10 Mg Tablet PO 10 mg HS JANEEN Administration Benzocaine 1 lozenge 08/15/24 18:17 Benzocaine/Menthol (*Bkc) 18 Ea Lozenge PO PRN PRN Sore Throat Benzonatate 100 mg 08/11/24 17:00 08/16/24 12:00 Benzonatate 100 Mg Capsule PO 100 mg TID JANEEN Administration Carvedilol 25 mg 08/10/24 08:00 08/16/24 08:18 Carvedilol 25 Mg Tablet PO 25 mg BIDWM JANEEN Administration Docusate Sodium 100 mg 08/10/24 08:45 08/14/24 09:13 Docusate Sodium 100 Mg Capsule PO 100 mg Q12H PRN Administration Constipation Enoxaparin Sodium 40 mg 08/12/24 09:00 08/16/24 08:19 Enoxaparin 40 Mg/0.4 Ml Syringe SUB-Q 40 mg DAILY JANEEN Administration Gabapentin 100 mg 08/12/24 13:00 08/16/24 11:59 Gabapentin 100 Mg Capsule PO 100 mg TID JANEEN Administration Guaifenesin 600 mg 08/10/24 09:00 08/16/24 08:17 Guaifenesin 12 Hr 600 Mg Tabcr PO 08/17/24 08:59 600 mg Q12HR JANEEN Administration Lamotrigine 100 mg 08/10/24 09:00 08/16/24 08:18 Lamotrigine 100 Mg Tablet PO 100 mg DAILY JANEEN Administration Lamotrigine 200 mg 08/10/24 18:00 08/15/24 16:23 Lamotrigine 100 Mg Tablet PO 200 mg QPM JANEEN Administration Lidocaine 1 patch 08/13/24 09:00 08/16/24 08:17 Lidocaine 5% Patch TRANSDERM 1 patch DAILY JANEEN Administration Methocarbamol 750 mg 08/12/24 13:00 08/16/24 12:00 Methocarbamol 750 Mg Tablet PO 750 mg QID JANEEN Administration Mirtazapine 30 mg 08/10/24 21:00 08/15/24 21:32 Mirtazapine 15 Mg Tablet PO 30 mg HS JANEEN Administration Ondansetron HCl 4 mg 08/10/24 06:02 Ondansetron Inj 4 Mg/2 Ml Vial IV PUSH Q4H PRN Nausea Risperidone 0.5 mg 08/10/24 09:00 08/16/24 08:17 Risperidone 0.5 Mg Tablet PO 0.5 mg Q12HR JANEEN Administration Radiology Results: ITS Impressions Sacrum and Coccyx X-Ray 08/09/24 23:49 IMPRESSION: Acute fracture the distal coccyx with posterior displacement of the fracture fragment Head CT 08/09/24 23:53 Impression: No acute intracranial hemorrhage or suspicious mass effect. 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 Chest CTA 08/10/24 06:19 Impression: No evidence of pulmonary embolus, aortic dissection, or aortic aneurysm. [id number] emphysema. Chest X-Ray 08/14/24 17:35 IMPRESSION: Mild interstitial edema. Labs Labs: Laboratory Results - last 24 hr 08/16/24 06:07 WBC 9.1 RBC 3.69 L Hgb 11.4 L Hct 35.1 L MCV 95.1 MCH 30.9 MCHC 32.5 RDW 13.1 Plt Count 339 MPV 8.8 Immature Gran % (Auto) 0.4 Neut % (Auto) 67.2 Lymph % (Auto) 18.2 L [place] % (Auto) 13.9 H Eos % (Auto) 0.0 Baso % (Auto) 0.3 Lymph # (Auto) 1.65 [place] # (Auto) 1.3 H Eos # (Auto) 0.0 Baso # (Auto) 0.0 Abs Immat Gran (auto) 0.04 H Absolute Neuts (auto) 6.1 Absolute Nucleated RBC 0.000 Nucleated RBC % 0.0 Sodium 137 Potassium 3.6 Chloride 103 Carbon Dioxide 33 H Anion Gap 1 L BUN 14 Creatinine 0.80 Estim Creat Clear Calc 37 Estimated GFR > 60 Glucose 102 Calcium 8.8 Total Bilirubin 0.4 AST 46 H ALT 34 Alkaline Phosphatase 64 Total Creatine Kinase 89 Total Protein 6.0 L Albumin 3.4 L Quality VTE Prophylaxis VTE prophylaxis: mechanical ordered and pharmacologic ordered Hospitalist MIPS Advance Care Plan I have confirmed that the patient's Advanced Care Plan is present, code status is documented, or surrogate decision maker is listed in patient medical record.: Yes Medication Reconciliation I have utilized all available resources to obtain, update and review the patients current medications (includes all prescriptions, OTC, herbals, cannabis, and nutritional supplements).: Yes
[2024-08-16] MEDS: lamoTRIgine 100 MG TABLET 200 MG PO (17:14)
[2024-08-16] MEDS: ATORVASTATIN 10 MG TABLET PO (20:29)
[2024-08-16] MEDS: MIRTAZAPINE 15 MG TABLET 30 MG PO (20:30)
[2024-08-17] VITALS (9 sets, daily range): BP systolic 115–151; BP diastolic 64–79; PULSE 66–85; RESP 16–22; TEMP 36.1–36.7; O2SAT 90–100
[2024-08-17] MEDS: BENZOCAINE/MENTHOL (*BKC) 18 EA LOZENGE 1 LOZENGE PO ×4 (00:23→21:28)
[2024-08-17 06:52] LABS: Basophils Percent Auto 0.3 % (0.2-1.2); Hematocrit 36.9 % (37.0-47.0); Immature Granulocyte Absolute 0.05 K/mm3 (0.00-0.031); Immature Granulocyte Percent A 0.5 % (0-0.5); Lymphocytes Absolute Auto 1.84 K/mm3 (0.9-3.2); Lymphocytes Percent Auto 17.9 % (18.3-44.2); Mean Corpuscular HGB Conc 32.5 g/dl (32-36); Mean Corpuscular Hemoglobin 30.9 pg (26-34); Mean Corpuscular Volume 95.1 fl (80-100); Mean Platelet Volume 8.6 fl (7.4-10.4); Monocytes Absolute Auto 1.4 K/mm3 (0.1-0.6); Monocytes Percent Auto 13.1 % (2.6-8.5); Neutrophils Percent Auto 68.2 % (45.5-73.1); Platelet Count Result 391 k/mm3 (150-375); Red Blood Count 3.88 M/mm3 (4.2-5.4); Red Cell Distribution Width 13.2 % (11.5-14.5); White Blood Count 10.3 K/mm3 (4.5-10.0)
[2024-08-17 07:05] LABS: Alanine Aminotransferase 36 U/L (6-35); Albumin Level 3.5 g/dL (3.5-5.1); Alkaline Phosphatase 65 U/L (38-126); Anion Gap 3 mmol/L (4-12); Aspartate Amino Transferase 42 U/L (14-36); Bilirubin,Total 0.3 mg/dL (0.2-1.3); Blood Urea Nitrogen 15 mg/dL (7-17); Calcium 8.8 mg/dL (8.4-10.2); Carbon Dioxide 32 mmol/L (22-30); Chloride 102 mmol/L (98-107); Creatine Kinase 59 U/L (30-135); Estimated CRCL calculation 37 ml/min; Estimated Glomerular Filt Rate > 60; Glucose 102 mg/dL (65-110); Potassium 3.8 mmol/L (3.4-5.0); Sodium 137 mmol/L (137-145)
[2024-08-17] MEDS: LIDOCAINE 5% PATCH 1 PATCH TRANSDERM (08:48)
[2024-08-17] MEDS: risperiDONE 0.5 MG TABLET PO ×2 (08:49→21:19)
[2024-08-17] MEDS: lamoTRIgine 100 MG TABLET PO (08:50)
[2024-08-17] MEDS: carvediloL 25 MG TABLET PO ×2 (08:50→16:22)
[2024-08-17] MEDS: GABAPENTIN 100 MG CAPSULE PO ×3 (08:51→16:22)
[2024-08-17] MEDS: ENOXAPARIN 40 MG/0.4 ML SYRINGE SUB-Q (08:51)
[2024-08-17] MEDS: amLODIPine BESYLATE 10 MG TABLET PO (08:51)
[2024-08-17] MEDS: BENZONATATE 100 MG CAPSULE PO ×3 (08:51→16:22)
[2024-08-17] MEDS: methocarbamoL 750 MG TABLET PO ×4 (08:51→21:19)
[2024-08-17] MEDS: IPRATROPIUM 0.5 MG/ALBUTEROL SULFATE 2.5 MG AMPUL.NEB 3 ML INHALATION (11:05)
--- NOTE | 2024-08-17 11:10 | PCOTNOTE ---
Attempted to see Patient at this time. Patient declined, stating she is having increased difficulty with breathing, she just got a breathing treatment and needs to rest.
--- NOTE | 2024-08-17 14:10 | PCOTNOTE ---
Attempted again this afternoon. Patient refused to participate, stated she is just not feeling well today, come back tomorrow.
--- NOTE | 2024-08-17 14:43 | P.PNIM_ITS ---
Progress Note: A&P Assessment and Plan (1) Rhabdomyolysis: Code(s): M62.82 - Rhabdomyolysis Status: Acute Assessment and Plan: * Resolved with IVF hydration. * Possibly secondary to prolonged time on the floor post fall. (2) Fracture of coccyx: Qualifiers: Encounter type: initial encounter Code(s): S32.2XXA - Fracture of coccyx, initial encounter for closed fracture Status: Acute Assessment and Plan: * Seen by Orthopedic. * Conservative mgt with pain meds PRN recommended for now by Ortho. * Follow-up with Ortho in 1 month. * Continue PT/OT treatment. * Awaiting SNF placement. (3) Generalized weakness: Code(s): R53.1 - Weakness Status: Acute Assessment and Plan: * Possibly secondary to deconditioning. * Continue PT/OT eval treatment. * Awaiting SNF placement for conditioning. * Fall precautions. * Assist with care. (4) Falls: Code(s): R29.6 - Repeated falls Status: Acute Assessment and Plan: * Mgt as # 3 above. * UA negative for UTI (5) Hypokalemia: Code(s): E87.6 - Hypokalemia Status: Acute Assessment and Plan: * replete as needed. * Continue to monitor levels. (6) Hypertension: Code(s): I10 - Essential (primary) hypertension Status: Chronic Assessment and Plan: * Blood pressure fairly well controlled. * Continue home Amlodipine 10 mg PO daily and Carvedilol 25 mg PO BID. (7) Hyperlipidemia: Code(s): E78.5 - Hyperlipidemia, unspecified Status: Chronic Assessment and Plan: * continue Atorvastatin 10 mg PO QHS. Plan Discharge to SNF when accepted. Continue PT/OT treatment and pain mgt. Fall precautions and encouraged with IS use. Time Spent With Patient Time with patient: 15 - 25 minutes Subjective Date/time seen: 08/17/24 14:43 Patient states she feels alright, still with sharp pain on his bottom when she sits on chair or lays on her bottom. States ambulated in room with therapy earlier and did fairly well, wants to do more per her previous activity level but disappointed that she's not able to now. Interval history: Patient calm on bedrest and looks to be in no acute distress. Review of Systems Review of Systems: All systems reviewed & are unremarkable except as noted in HPI and below Exam Narrative: General: Generalized muscle weakness, no acute distress. HEENT: Atraumatic, PERRL, EOM, anicteric, moist mucus membranes. NECK: Supple. Lungs: Crackles mainly to left base. Heart: RRR, no murmurs. Abdomen: Soft, non-tender, non-distended, +ve bowel sounds X4 quadrants. Extremities: No edema. 2+ pedal pulses. Skin: Warm and dry with no lesions or cyanosis. Neuro: Fairly well oriented. No focal neuro deficits noted. Psych: Co-operative and appropriate. Objective Data Vital Signs Vital Signs: Vital Signs - 24 hr 08/16/24 16:43 08/16/24 20:28 08/17/24 05:35 Temperature 98.1 F 98.1 F Pulse Rate 65 60 73 Respiratory Rate 16 16 Blood Pressure 120/47 L 151/64 H Pulse Oximetry 91 93 Oxygen Delivery Oxygen Flow Rate 08/17/24 08:50 08/17/24 08:00 08/17/24 11:05 Temperature Pulse Rate 75 83 Respiratory Rate 18 Blood Pressure Pulse Oximetry 90 92 Oxygen Delivery Room Air Nasal Cannula Oxygen Flow Rate 1 08/17/24 11:05 08/17/24 11:15 08/17/24 14:00 Temperature 98.0 F Pulse Rate 83 85 71 Respiratory Rate 18 18 22 H Blood Pressure 115/79 Pulse Oximetry 94 Oxygen Delivery Oxygen Flow Rate Intake/Output Intake/Output: Intake & Output 08/14/24 08/15/24 08/16/24 08/17/24 23:59 23:59 23:59 23:59 Intake Total 560 1080 440 600 Output Total 006 865 7463 600 Balance 10 480 -560 0 Meds/Results Medications: Active Medications Generic Name Dose Route Start Last Admin Trade Name Freq PRN Reason Stop Dose Admin Acetaminophen 650 mg 08/10/24 06:02 08/16/24 13:31 Acetaminophen 325 Mg Tablet PO 650 mg Q4H PRN Administration Fever Acetaminophen 325 mg 08/10/24 08:43 Acetaminophen 325 Mg Tablet PO Q4H PRN Pain 1-3 Hydrocodone Bitart/Acetaminophen 1 tab 08/10/24 19:51 08/14/24 20:33 Hydrocodone/Acetaminophen (*Crx) 5-325 Mg Tablet PO 1 tab Q4H PRN Administration Pain Rated 4-6 Albuterol 2 puff 08/10/24 08:43 Albuterol Sulfate (*Sp) Aerosol 1 Puff INHALATION Q4HRT PRN Shortness Of Breath Albuterol/Ipratropium 3 ml 08/10/24 13:46 08/17/24 11:05 Ipratropium 0.5 Mg/Albuterol Sulfate 2.5 Mg Ampul.Neb 3 Ml INHALATION 3 ml Q6HRT PRN Administration Shortness Of Breath Or Wheezing Amlodipine Besylate 10 mg 08/10/24 09:00 08/17/24 08:51 Amlodipine Besylate 10 Mg Tablet PO 10 mg DAILY JANEEN Administration Atorvastatin Calcium 10 mg 08/10/24 21:00 08/16/24 20:29 Atorvastatin 10 Mg Tablet PO 10 mg HS JANEEN Administration Benzocaine 1 lozenge 08/15/24 18:17 08/17/24 13:01 Benzocaine/Menthol (*Bkc) 18 Ea Lozenge PO 1 lozenge PRN PRN Administration Sore Throat Benzonatate 100 mg 08/11/24 17:00 08/17/24 12:29 Benzonatate 100 Mg Capsule PO 100 mg TID JANEEN Administration Carvedilol 25 mg 08/10/24 08:00 08/17/24 08:50 Carvedilol 25 Mg Tablet PO 25 mg BIDWM JANEEN Administration Docusate Sodium 100 mg 08/10/24 08:45 08/14/24 09:13 Docusate Sodium 100 Mg Capsule PO 100 mg Q12H PRN Administration Constipation Enoxaparin Sodium 40 mg 08/12/24 09:00 08/17/24 08:51 Enoxaparin 40 Mg/0.4 Ml Syringe SUB-Q 40 mg DAILY JANEEN Administration Gabapentin 100 mg 08/12/24 13:00 08/17/24 12:29 Gabapentin 100 Mg Capsule PO 100 mg TID JANEEN Administration Lamotrigine 100 mg 08/10/24 09:00 08/17/24 08:50 Lamotrigine 100 Mg Tablet PO 100 mg DAILY JANEEN Administration Lamotrigine 200 mg 08/10/24 18:00 08/16/24 17:14 Lamotrigine 100 Mg Tablet PO 200 mg QPM JANEEN Administration Lidocaine 1 patch 08/13/24 09:00 08/17/24 08:48 Lidocaine 5% Patch TRANSDERM 1 patch DAILY JANEEN Administration Methocarbamol 750 mg 08/12/24 13:00 08/17/24 12:29 Methocarbamol 750 Mg Tablet PO 750 mg QID JANEEN Administration Mirtazapine 30 mg 08/10/24 21:00 08/16/24 20:30 Mirtazapine 15 Mg Tablet PO 30 mg HS JANEEN Administration Ondansetron HCl 4 mg 08/10/24 06:02 Ondansetron Inj 4 Mg/2 Ml Vial IV PUSH Q4H PRN Nausea Risperidone 0.5 mg 08/10/24 09:00 08/17/24 08:49 Risperidone 0.5 Mg Tablet PO 0.5 mg Q12HR JANEEN Administration Radiology Results: ITS Impressions Sacrum and Coccyx X-Ray 08/09/24 23:49 IMPRESSION: Acute fracture the distal coccyx with posterior displacement of the fracture fragment Head CT 08/09/24 23:53 Impression: No acute intracranial hemorrhage or suspicious mass effect. 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 Chest CTA 08/10/24 06:19 Impression: No evidence of pulmonary embolus, aortic dissection, or aortic aneurysm. [id number] emphysema. Chest X-Ray 08/14/24 17:35 IMPRESSION: Mild interstitial edema. Labs Labs: Laboratory Results - last 24 hr 08/17/24 08/17/24 06:26 06:26 WBC 10.3 H RBC 3.88 L Hgb 12.0 Hct 36.9 L MCV 95.1 MCH 30.9 MCHC 32.5 RDW 13.2 Plt Count 391 H MPV 8.6 Immature Gran % (Auto) 0.5 Neut % (Auto) 68.2 Lymph % (Auto) 17.9 L Amador % (Auto) 13.1 H Eos % (Auto) 0.0 Baso % (Auto) 0.3 Lymph # (Auto) 1.84 Amador # (Auto) 1.4 H Eos # (Auto) 0.0 Baso # (Auto) 0.0 Abs Immat Gran (auto) 0.05 H Absolute Neuts (auto) 7.0 H Absolute Nucleated RBC 0.000 Nucleated RBC % 0.0 Sodium 137 Potassium 3.8 Chloride 102 Carbon Dioxide 32 H Anion Gap 3 L BUN 15 Creatinine 0.80 Estim Creat Clear Calc 37 Estimated GFR > 60 Glucose 102 Calcium 8.8 Total Bilirubin 0.3 AST 42 H ALT 36 H Alkaline Phosphatase 65 Total Creatine Kinase 59 Cancelled Total Protein 6.0 L Albumin 3.5 Quality VTE Prophylaxis VTE prophylaxis: mechanical ordered and pharmacologic ordered Hospitalist MIPS Advance Care Plan I have confirmed that the patient's Advanced Care Plan is present, code status is documented, or surrogate decision maker is listed in patient medical record.: Yes Medication Reconciliation I have utilized all available resources to obtain, update and review the patients current medications (includes all prescriptions, OTC, herbals, cannabis, and nutritional supplements).: Yes
[2024-08-17] MEDS: lamoTRIgine 100 MG TABLET 200 MG PO (17:36)
[2024-08-17] MEDS: MIRTAZAPINE 15 MG TABLET 30 MG PO (21:19)
[2024-08-17] MEDS: ATORVASTATIN 10 MG TABLET PO (21:19)
[2024-08-18] MEDS: BENZOCAINE/MENTHOL (*BKC) 18 EA LOZENGE 1 LOZENGE PO (00:05)
[2024-08-18 05:38] VITALS: BP 143/60; PULSE 66; RESP 14; TEMP 36.2; O2SAT 90
[2024-08-18 06:17] VITALS: O2SAT 92
[2024-08-18 07:59] LABS: Basophils Percent Auto 0.3 % (0.2-1.2); Hematocrit 36.4 % (37.0-47.0); Hemoglobin 11.7 g/dL (12.0-15.0); Immature Granulocyte Absolute 0.03 K/mm3 (0.00-0.031); Immature Granulocyte Percent A 0.3 % (0-0.5); Lymphocytes Absolute Auto 1.56 K/mm3 (0.9-3.2); Lymphocytes Percent Auto 16.7 % (18.3-44.2); Mean Corpuscular HGB Conc 32.1 g/dl (32-36); Mean Corpuscular Hemoglobin 30.6 pg (26-34); Mean Corpuscular Volume 95.3 fl (80-100); Mean Platelet Volume 8.8 fl (7.4-10.4); Monocytes Absolute Auto 1.3 K/mm3 (0.1-0.6); Monocytes Percent Auto 13.4 % (2.6-8.5); Neutrophils Absolute Auto 6.5 K/mm3 (1.3-6.7); Neutrophils Percent Auto 69.3 % (45.5-73.1); Platelet Count Result 393 k/mm3 (150-375); Red Blood Count 3.82 M/mm3 (4.2-5.4); Red Cell Distribution Width 13.2 % (11.5-14.5); White Blood Count 9.4 K/mm3 (4.5-10.0)
[2024-08-18] MEDS: methocarbamoL 750 MG TABLET PO ×3 (08:59→17:05)
[2024-08-18] MEDS: lamoTRIgine 100 MG TABLET PO (08:59)
[2024-08-18] MEDS: GABAPENTIN 100 MG CAPSULE PO ×3 (08:59→17:05)
[2024-08-18] MEDS: risperiDONE 0.5 MG TABLET PO (08:59)
[2024-08-18] MEDS: BENZONATATE 100 MG CAPSULE PO ×3 (08:59→17:05)
[2024-08-18 09:00] VITALS: BP 130/60; PULSE 65; O2SAT 93
[2024-08-18 09:04] VITALS: PULSE 65
[2024-08-18] MEDS: ENOXAPARIN 40 MG/0.4 ML SYRINGE SUB-Q (09:04)
[2024-08-18] MEDS: amLODIPine BESYLATE 10 MG TABLET PO (09:04)
[2024-08-18] MEDS: carvediloL 25 MG TABLET PO (09:04)
[2024-08-18] MEDS: LIDOCAINE 5% PATCH 1 PATCH TRANSDERM (09:05)
[2024-08-18 10:15] LABS: Alanine Aminotransferase 37 U/L (6-35); Albumin Level 3.4 g/dL (3.5-5.1); Alkaline Phosphatase 57 U/L (38-126); Anion Gap 4 mmol/L (4-12); Aspartate Amino Transferase 44 U/L (14-36); Bilirubin,Total 0.6 mg/dL (0.2-1.3); Blood Urea Nitrogen 13 mg/dL (7-17); Calcium 8.9 mg/dL (8.4-10.2); Carbon Dioxide 28 mmol/L (22-30); Chloride 104 mmol/L (98-107); Creatine Kinase 60 U/L (30-135); Estimated CRCL calculation 42 ml/min; Estimated Glomerular Filt Rate > 60; Glucose 104 mg/dL (65-110); Potassium 4.4 mmol/L (3.4-5.0); Sodium 136 mmol/L (137-145)
[2024-08-18 14:00] VITALS: BP 120/80; PULSE 70; RESP 22; TEMP 36.7; O2SAT 94
--- NOTE | 2024-08-18 14:29 | P.DS_ITS ---
DS: Admitting Diagnosis Discharge Date 08/18/2024 Admitting Diagnosis Fall DS: Discharge Diagnosis Discharge Diagnosis (1) Falls: Code(s): R29.6 - Repeated falls Status: Acute Assessment and Plan: * Possibly related to deconditioning vs other. * Patient unsure of why she fell. * Patient had a fall episode about a week prior to this episode and twisted her left ankle, placing herself on surgical boot. * UA negative for UTI. * CT head with no acute intracranial hemorrhage. * CTA Chest negative for PE. * RSV, Flu, and COVID negative. * Patient received PT/OT treatment and has been recommended for inpatient rehab. * Patient lives alone and admits to rarely using her walker, but son lives c lose. * Patient stable for discharge to SNF for deconditioning. (2) Rhabdomyolysis: Code(s): M62.82 - Rhabdomyolysis Status: Acute Assessment and Plan: * Likely secondary to prolonged time on the floor post-fall. * Resolved with IVF hydration. (3) Fracture of coccyx: Qualifiers: Encounter type: initial encounter Code(s): S32.2XXA - Fracture of coccyx, initial encounter for closed fracture Status: Acute Assessment and Plan: * Occurred post fall. * Seen by Orthopedic. * Conservative mgt with pain meds PRN recommended for now by Ortho. * Follow-up with Ortho in 1 month. * Continue PT/OT treatment. * Transfer to SNF for deconditioning. (4) Generalized weakness: Code(s): R53.1 - Weakness Status: Acute Assessment and Plan: * Possibly secondary to deconditioning and ankle sprain on initial fall a week earlier. * Continue PT/OT eval treatment. * Accepted to SNF and will be transferred for further conditioning. * Maintain fall precautions. * Assist with care. (5) Hypokalemia: Code(s): E87.6 - Hypokalemia Status: Acute Assessment and Plan: * Corrected prior to discharge. (6) Hypertension: Code(s): I10 - Essential (primary) hypertension Status: Chronic Assessment and Plan: * Blood pressure fairly well controlled inpatient on home meds. * Home medications; Amlodipine 10 mg PO daily and Carvedilol 25 mg PO BID. (7) Hyperlipidemia: Code(s): E78.5 - Hyperlipidemia, unspecified Status: Chronic Assessment and Plan: * continue Atorvastatin 10 mg PO QHS. Plan Accepted to SNF and will be discharged for continued conditioning. DS: Summary Hospital Course Reason for hospitalization: Fall Episodes Hospital Course: Patient presented to the ER following a fall episode at home. She reported a prior fall a week ago and sprained her left ankle, putting herself in a surgical boot. She reported much improvement and almost resolution of left-ankle pain. Patient also reported pain to her sacral region, and Sacrum/coccyx X-ray showing an acute fracture the distal coccyx with posterior displacement of the fracture fragment. She had a CT Head done that showed no acute intracranial hemorrhage of suspicious mass effect, prior cerebral infarction with right MCA distribution. 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 Her D-dimer was 2.84. but CTA Chest was negative for pulmonary embolus, aortic dissection, or aortic aneurysm. Other initial woek-up labs included; BNP 1330. CK 6199 and wnl prior to discharge with IVF hydration. RSV, Flu, and COVID were all negative. She was seen by Ortho and conservative mgt was recommended with f/u in 1 month. Patient lives alone and after PT/OT eval and treatment, SNF placement for conditioning was recommended and she's being transferred to [place] for continued conditioning. She has been able to ambulate in the room and slightly on the hallway with PT assistance. She has been kept comfortable with pain meds and pt is currently stable for medical discharge to SNF. Status at Discharge Functional status at discharge: uses cane/walker Overall status at discharge: patient is progressing back to baseline Time Spent with Patient Time attestation: Total time spent providing and/or coordinating discharge services: Time spent: Greater than 30 minutes Exam Narrative: General: Generalized muscle weakness, no acute distress. HEENT: Atraumatic, PERRL, EOM, anicteric, moist mucus membranes. NECK: Supple. Lungs: Crackles mainly to left base. Heart: RRR, no murmurs. Abdomen: Soft, non-tender, non-distended, +ve bowel sounds X4 quadrants. Extremities: No edema. 2+ pedal pulses. Skin: Warm and dry with no lesions or cyanosis. Neuro: Fairly well oriented. No focal neuro deficits noted. Psych: Co-operative and appropriate. DS: Data Data Completed and Pending Labs on day of discharge: Labs from last 24 hours 08/18/24 07:30 WBC 9.4 RBC 3.82 L Hgb 11.7 L Hct 36.4 L MCV 95.3 MCH 30.6 MCHC 32.1 RDW 13.2 Plt Count 393 H MPV 8.8 Immature Gran % (Auto) 0.3 Neut % (Auto) 69.3 Lymph % (Auto) 16.7 L Forrest % (Auto) 13.4 H Eos % (Auto) 0.0 Baso % (Auto) 0.3 Lymph # (Auto) 1.56 Forrest # (Auto) 1.3 H Eos # (Auto) 0.0 Baso # (Auto) 0.0 Abs Immat Gran (auto) 0.03 Absolute Neuts (auto) 6.5 Absolute Nucleated RBC 0.000 Nucleated RBC % 0.0 Sodium 136 L Potassium 4.4 Chloride 104 Carbon Dioxide 28 Anion Gap 4 BUN 13 Creatinine 0.70 Estim Creat Clear Calc 42 Estimated GFR > 60 Glucose 104 Calcium 8.9 Total Bilirubin 0.6 AST 44 H ALT 37 H Alkaline Phosphatase 57 Total Creatine Kinase 60 Total Protein 6.0 L Albumin 3.4 L Discharge Plan Discharge Attending physician on discharge: April Dominguez Consulting providers: Terry Phelps Discharging Clinician: Royce Spivey Anticipated Discharge Date/Time: 08/18/24 15:27 Patient Disposition: SNF Activity: as tolerated Diet: heart healthy Patient Instructions: Pain Management (DC) Stand Alone Forms: General Discharge Information Follow-up/Referrals: Hang,MD Chi [Primary Care Provider] - 3 Weeks Terry Phelps MD [Physician] - 4 Weeks Discharge Medications: New lidocaine [Lidoderm] 5 % Adhesive Patch,Medicated 1 patch transdermal DAILY Qty: 14 0RF gabapentin 100 mg Capsule 100 mg PO TID Qty: 30 0RF methocarbamol 750 mg Tablet 750 mg PO QID Qty: 30 0RF Chloraseptic Sore Throat 6-10 mg Lozenge 1 jan PO PRN PRN (Reason: Sore Throat) Qty: 30 0RF Continued carvedilol 25 mg Tablet 25 mg PO BID lamotrigine 200 mg Tablet 200 mg PO QPM atorvastatin 10 mg Tablet 10 mg PO HS amlodipine 10 mg Tablet 10 mg PO DAILY mirtazapine 15 mg Tablet 30 mg PO HS acetaminophen 325 mg Capsule 325 mg PO Q4-5H PRN (Reason: Pain) Rx Instructions: every 4hrs as needed albuterol sulfate 90 mcg/actuation HFA aerosol inhaler 2 puff INHALATION Q4-5H PRN (Reason: Shortness Of Breath) cranberry extract 300 mg Tablet 300 mg PO BID Rx Instructions: administer with a meal lamotrigine [Lamictal] 100 mg Tablet 100 mg PO DAILY risperidone 0.5 mg tablet 0.5 mg PO BID Date of admission: 08/10/24 06:22 Primary Care Provider: Chi Parra Admitting Provider: Rukhsana Christie Attending physician on admission: Rukhsana Christie Condition: Stable Quality VTE Prophylaxis VTE prophylaxis: mechanical ordered Hospitalist MIPS Heart Failure (Exclusion) Patient has history of Heart Transplant or Left Ventricular Assistive Device?: No IF YES, STOP HERE Heart Failure (Qualifier) Patient has current or prior documentation of LVEF less than or equal to 40%, or mod/servere depressed LVSF?: No IF NO, STOP HERE
== END 2024-08-18 17:35 ==
LOC: ANHED 22:59 → ANH3MEDSUR 08-10 06:36
PROVIDERS: Nurse Practitioner Family; Admitting Provider Internal Medicine; Emergency Provider Student in an Organized Health Care Education/Training Program; PCP Internal Medicine; Visit Provider Family Medicine
DX: M62.82 Rhabdomyolysis (principal); S32.2XXA Fracture of coccyx, initial encounter for closed fracture; W07.XXXA Fall from chair, initial encounter; R29.6 Repeated falls; R53.1 Weakness; E87.6 Hypokalemia; I10 Essential (primary) hypertension; E78.5 Hyperlipidemia, unspecified; D72.829 Elevated white blood cell count, unspecified; R74.01 Elevation of levels of liver transaminase levels; J43.9 Emphysema, unspecified; F17.210 Nicotine dependence, cigarettes, uncomplicated; F41.9 Anxiety disorder, unspecified; F03.90 Unspecified dementia, unspecified severity, without behavioral disturbance, psychotic disturbance, mood disturbance, and anxiety; F32.A Depression, unspecified; Z66 Do not resuscitate; Z20.822 Contact with and (suspected) exposure to COVID-19; Z93.1 Gastrostomy status; Z79.51 Long term (current) use of inhaled steroids; Z79.899 Other long term (current) drug therapy; Z86.73 Personal history of transient ischemic attack (TIA), and cerebral infarction without residual deficits; Z86.79 Personal history of other diseases of the circulatory system
CPT/HCPCS: 36415; 70450; 71045; 71046; 71275; 72220; 80053; 81001; 82550; 83735; 83880; 84484; 85025; 85380; 87637; 93005; 94640; 96361; 96372; 96374; 96375; 96376; 97110; 97116; 97161; 97165; 97530; 97535; 99285; A9270; G0378; J1650; J1885; J1940; J2270; J7030; J7120; Q9967